=== PATIENT | female | born 1945 | race Caucasian/White ===

== ENCOUNTER 2017-04-15 11:11 | Inpatient (IN) | payer MEDICARE ==
[~2017-04-15] VITALS: Ht 154.9 cm; Wt 93.0 kg
[~2017-04-15 11:11] MED LIST: ASA325 PO; ASPIRIN325 MG PO; ATORVASTATIN CA20 MG PO; AZO CRANBERRY1 EAC1 PO; B12 PO; CALCIUM 600 +1 EAC2 PO; ESIDRIX25 MG PO; GABAPENTIN300 MG PO; GLIMEPIRIDE2 MG PO; LISINOPRIL2.5 MG PO; NRC7.5T PO; OMEPRAZOLE40 MG PO; TYLENOL EXTRA500 MG PO; ULTRAM 50MG50 MG PO; [UNRECOGNIZED DRUG - REMARK] PO; aleve
[2017-04-15] MEDS ORDERED: ALBUTEROL SULF 0.083% NEB SOLN 3 ML NEB NEB STA (11:54)
[2017-04-15] MEDS ORDERED: SODIUM CHLORIDE FLUSH 10 ML SYR INJ PRN ×2 (12:00→15:00)
[2017-04-15 12:08] LABS: BASOPHILS # (AUTO) 0.1 (0.0-0.1); BASOPHILS % 0.7 % (0.0-1.0); EOSINOPHILS % 0.5 % (0.0-6.0); HEMATOCRIT 38.2 % (34.2-44.1); HEMOGLOBIN 13.3 g/dL (12.0-16.0); LYMPHOCYTES # (AUTO) 1.4 (1.0-3.2); LYMPHOCYTES % 19.3 % (18.0-39.1); MEAN CORPUSCULAR HEMOGLOBIN 32.4 pg (28-32); MEAN CORPUSCULAR HGB CONC 34.8 g/dL (31-35); MEAN CORPUSCULAR VOLUME 93.2 fL (81-99); MONOCYTES % 13.1 % (4.4-11.3); NEUTROPHILS # (AUTO) 4.9 (2.1-6.9); NEUTROPHILS % 65.6 % (38.7-80.0); PLATELET COUNT 228 x10e3/uL (140-360); RED CELL DISTRIBUTION WIDTH 13.6 % (11.7-14.4)
--- NOTE | 2017-04-15 12:25 | Diagnostic Imaging Report ---
EXAMINATION: Chest, CHEST SINGLE (PORTABLE) INDICATION: Chest pain COMPARISON: Chest 2 views 03/04/2016 FINDINGS: LINES: None. Heart: Normal cardiac silhouette. Vascular: The pulmonary vasculature is within normal limits. Atherosclerotic calcifications of the aortic arch. Mediastinum: No mediastinal, hilar, or axillary mass or lymphadenopathy. Lungs: No parenchymal mass. No focal consolidation. Low lung volumes are present bilaterally. Pleura: No pleural effusion. No pneumothorax. Bones: No acute osseous abnormality. Degenerative changes of the thoracic spine. Soft tissues: Normal. Impression: No acute radiographic abnormality. Signed by: Dr. Darryl Barfield M.D. on 04/15/2017 12:22 PM
[2017-04-15 12:27] LABS: ALANINE AMINOTRANSFERASE 25 IU/L (0-55); ALBUMIN 3.8 g/dL (3.5-5.0); ALKALINE PHOSPHATASE 155 IU/L (40-150); ANION GAP 12.4 mmol/L (8-16); BLOOD UREA NITROGEN 9 mg/dL (7-26); BUN/CREATININE RATIO 10 (6-25); CALCIUM 10.9 mg/dL (8.4-10.2); CARBON DIOXIDE 26 mmol/L (22-29); CHLORIDE 100 mmol/L (98-107); CREATINE KINASE 97 IU/L (29-168); CREATININE, SERUM 0.89 mg/dL (0.57-1.11); EST GLOMERULAR FILTRATION RATE > 60 ML/MIN (60-); GLUCOSE 114 mg/dL (74-118); POTASSIUM 3.4 mmol/L (3.5-5.1); SODIUM 135 mmol/L (136-145)
[2017-04-15 12:33] LABS: TROPONIN I < 0.001 ng/mL (0-0.300)
[2017-04-15 12:46] LABS: BILIRUBIN,URINE NEGATIVE (NEGATIVE); KETONES,URINE NEGATIVE (NEGATIVE); LEUKOCYTE ESTERASE ,URINE TRACE (NEGATIVE); NITRITE,URINE NEGATIVE (NEGATIVE); PROTEIN,URINE DIPSTICK NEGATIVE (NEGATIVE); URINE UROBILINOGEN 0.2 mg/dL (0.2 - 1)
[2017-04-15 12:47] LABS: CLARITY,URINE CLEAR (CLEAR); COLOR,URINE YELLOW (YELLOW)
[2017-04-15 12:51] LABS: EPITHELIAL CELLS,URINE FEW /LPF; RBC,URINE 0-5 /HPF (0-5); WBC,URINE (MAN) 0-5 /HPF (0-5)
--- NOTE | 2017-04-15 14:01 | Diagnostic Imaging Report ---
EXAM: CT Chest WITH contrast INDICATION: Chest pain COMPARISON: None available TECHNIQUE: Chest was scanned utilizing a multidetector helical scanner from the lung apex through the level of the diaphragm after administration of IV contrast. Coronal and sagittal reconstructions were submitted for interpretation. Protocol: Pulmonary embolus protocol IV CONTRAST: 100 mL of Isovue 370 COMPLICATIONS: None RADIATION DOSE: Total exam DLP: 508.7 mGy*cm. CTDIvol has been reviewed. It is below the limits set by the Radiation Protocol Committee (RPC). FINDINGS: LINES/ TUBES: None. Heart: No cardiomegaly. No pericardial effusion. Vessels: No filling defect is present in the main and post bifurcation right and left main pulmonary arteries. Limited evaluation of the lobar and segmental branches due to contrast bolus timing. Atherosclerotic calcifications of the thoracic aorta and coronary arteries. Mediastinum: No mediastinal or hilar mass or lymphadenopathy. Normal thyroid. Lungs: No parenchymal mass. No focal consolidation. Normal parenchyma. Bibasilar atelectasis. Pleura: No pleural effusion. No pneumothorax. Soft tissues: Normal. No axillary mass or lymphadenopathy. Bones: No acute osseous abnormality. Degenerative changes of the thoracic spine. Adrenal glands: No adrenal nodules.. Abdomen: The partially visualized portions of the upper abdomen are unremarkable.. IMPRESSION: 1. No evidence of pulmonary arterial embolism or thrombosis within the main pulmonary artery. Limited distal evaluation. 2. No acute abnormality of the chest. Signed by: Dr. Darryl Barfield M.D. on 04/15/2017 1:58 PM
[2017-04-15 16:30] VITALS: BP 126/72
[2017-04-15 16:58] VITALS: BP 126/72
[2017-04-15] MEDS ORDERED: IOPAMIDOL 370 MG/ML 200 ML INFUS..BTL INJ ONE (18:27)
[2017-04-15] MEDS ORDERED: SODIUM CHLORIDE 0.9% 50ML 50 ML ONE (18:27)
[2017-04-15 19:28] LABS: CREATINE KINASE MB 0.5 ng/mL (0.00-5.00); TROPONIN I 0.01 ng/mL (0-0.300)
[2017-04-15 20:00] VITALS: BP 113/59
[2017-04-15] MEDS: HYDROCODONE/APAP 5MG-325MG TAB PO PRN (21:39)
[2017-04-16 00:16] VITALS: BP 123/55
[2017-04-16] MEDS: ALBUTEROL/IPRATROPIUM 3 ML NEB NEB SCH ×3 (01:15→19:42)
[2017-04-16] MEDS: LEVOFLOXACIN 500MG/D5W 100ML 100 ML IV SCH (01:16)
[2017-04-16] MEDS: HYDROCODONE/APAP 5MG-325MG TAB PO PRN (01:16)
[2017-04-16 04:00] VITALS: BP 122/56
[2017-04-16] MEDS: METHYLPREDNISOLONE SOD SUCC 125 MG/2ML VIAL IV SCH ×3 (05:18→21:17)
[2017-04-16 08:00] VITALS: BP 121/66
[2017-04-16 08:02] LABS: CREATINE KINASE MB 0.7 ng/mL (0.00-5.00); TROPONIN I 0.004 ng/mL (0-0.300)
[2017-04-16] MEDS: GLIMEPIRIDE 2 MG TAB PO SCH (08:17)
[2017-04-16] MEDS: LISINOPRIL 2.5 MG TAB PO SCH (08:17)
[2017-04-16] MEDS: ASPIRIN 325 MG TAB PO SCH ×2 (08:17→16:44)
[2017-04-16] MEDS: PANTOPRAZOLE SOD 40 MG TABEC PO SCH ×2 (08:17→16:44)
[2017-04-16] MEDS: ACETAMINOPHEN 325 MG TAB PO SCH ×2 (08:17→16:44)
[2017-04-16] MEDS: HYDROCHLOROTHIAZIDE 25 MG TAB PO SCH (08:17)
[2017-04-16] MEDS ORDERED: ATORVASTATIN 20 MG TAB PO SCH (09:00)
[2017-04-16] MEDS ORDERED: DIPHENHYDRAMINE HCL 25 MG CAP PO PRN (10:45)
[2017-04-16 11:58] VITALS: BP 108/59
[2017-04-16] MEDS ORDERED: DEXTROSE 50% SYRINGE 50 ML IV PRN (12:30)
[2017-04-16] MEDS: INSULIN REGULAR, HUMAN 100 UNIT/1 ML 3ML VIAL SQ SCH ×3 (12:30→21:00)
[2017-04-16 16:06] VITALS: BP 110/54
[2017-04-16 20:00] VITALS: BP 100/56
[2017-04-16] MEDS: ATORVASTATIN 20 MG TAB PO SCH (21:16)
[2017-04-17] VITALS: BP 104/53
[2017-04-17] MEDS: ALBUTEROL/IPRATROPIUM 3 ML NEB NEB SCH ×4 (00:40→19:50)
[2017-04-17] MEDS: LEVOFLOXACIN 500MG/D5W 100ML 100 ML IV SCH (00:47)
[2017-04-17] MEDS: HYDROCODONE/APAP 5MG-325MG TAB PO PRN (01:42)
[2017-04-17 04:00] VITALS: BP 116/61
[2017-04-17] MEDS: METHYLPREDNISOLONE SOD SUCC 125 MG/2ML VIAL IV SCH ×3 (06:02→21:26)
[2017-04-17 07:46] VITALS: BP 128/69
[2017-04-17] MEDS: PANTOPRAZOLE SOD 40 MG TABEC PO SCH ×2 (08:14→16:51)
[2017-04-17] MEDS: LISINOPRIL 2.5 MG TAB PO SCH (08:14)
[2017-04-17] MEDS: ASPIRIN 325 MG TAB PO SCH ×2 (08:14→16:51)
[2017-04-17] MEDS: HYDROCHLOROTHIAZIDE 25 MG TAB PO SCH (08:14)
[2017-04-17] MEDS: GLIMEPIRIDE 2 MG TAB PO SCH (08:14)
[2017-04-17] MEDS: ACETAMINOPHEN 325 MG TAB PO SCH ×2 (08:14→16:51)
[2017-04-17] MEDS: INSULIN REGULAR, HUMAN 100 UNIT/1 ML 3ML VIAL SQ SCH ×4 (08:15→21:42)
[2017-04-17 11:34] VITALS: BP 120/55
[2017-04-17 15:34] VITALS: BP 113/57
[2017-04-17 20:00] VITALS: BP 105/57
[2017-04-17] MEDS: ATORVASTATIN 20 MG TAB PO SCH (21:26)
[2017-04-18] VITALS: BP 113/56
[2017-04-18] MEDS: LEVOFLOXACIN 500MG/D5W 100ML 100 ML IV SCH (00:17)
[2017-04-18] MEDS: ALBUTEROL/IPRATROPIUM 3 ML NEB NEB SCH ×4 (02:24→19:45)
[2017-04-18 04:00] VITALS: BP 128/64
[2017-04-18] MEDS: METHYLPREDNISOLONE SOD SUCC 125 MG/2ML VIAL IV SCH ×3 (05:31→21:32)
[2017-04-18 06:45] LABS: HEMATOCRIT 36.4 % (34.2-44.1); HEMOGLOBIN 12.6 g/dL (12.0-16.0); MEAN CORPUSCULAR HEMOGLOBIN 32.8 pg (28-32); MEAN CORPUSCULAR HGB CONC 34.6 g/dL (31-35); MEAN CORPUSCULAR VOLUME 94.8 fL (81-99); PLATELET COUNT 260 x10e3/uL (140-360); RED BLOOD COUNT 3.84 x10e6/uL (3.6-5.1); RED CELL DISTRIBUTION WIDTH 13.6 % (11.7-14.4)
[2017-04-18 07:09] LABS: ANION GAP 17.5 mmol/L (8-16); CALCIUM 10.9 mg/dL (8.4-10.2); CREATININE, SERUM 1.03 mg/dL (0.57-1.11); POTASSIUM 3.5 mmol/L (3.5-5.1)
[2017-04-18 08:16] VITALS: BP 115/60
[2017-04-18 08:52] LABS: LYMPHOCYTES % (MANUAL) 2 % (19-48); NEUTROPHILS % (MANUAL) 98 % (40-74)
[2017-04-18 08:53] LABS: ANISOCYTOSIS SLIGHT; PLATELET ESTIMATE ADEQUATE; PLATELET MORPHOLOGY COMMENT NORMAL; POIKILOCYTOSIS SLIGHT; RBC MORPHOLOGY COMMENT NORMAL; TOXIC GRANULATION SLIGHT
[2017-04-18] MEDS: INSULIN REGULAR, HUMAN 100 UNIT/1 ML 3ML VIAL SQ SCH ×4 (09:15→21:30)
[2017-04-18] MEDS: HYDROCHLOROTHIAZIDE 25 MG TAB PO SCH (09:47)
[2017-04-18] MEDS: GLIMEPIRIDE 2 MG TAB PO SCH (09:47)
[2017-04-18] MEDS: ASPIRIN 325 MG TAB PO SCH ×2 (09:47→17:15)
[2017-04-18] MEDS: ACETAMINOPHEN 325 MG TAB PO SCH ×2 (09:47→17:15)
[2017-04-18] MEDS: PANTOPRAZOLE SOD 40 MG TABEC PO SCH ×2 (09:47→17:15)
[2017-04-18] MEDS: LISINOPRIL 2.5 MG TAB PO SCH (09:47)
[2017-04-18 12:20] VITALS: BP 119/67
[2017-04-18 17:20] VITALS: BP 129/64
[2017-04-18 20:00] VITALS: BP 112/59
[2017-04-18] MEDS: ATORVASTATIN 20 MG TAB PO SCH (21:32)
[2017-04-19] VITALS: BP 102/55
[2017-04-19] MEDS: LEVOFLOXACIN 500MG/D5W 100ML 100 ML IV SCH (00:27)
[2017-04-19] MEDS: ALBUTEROL/IPRATROPIUM 3 ML NEB NEB SCH ×2 (01:00→08:00)
[2017-04-19 04:00] VITALS: BP 125/79
[2017-04-19] MEDS: METHYLPREDNISOLONE SOD SUCC 125 MG/2ML VIAL IV SCH (05:04)
[2017-04-19 07:27] VITALS: BP 131/64
[2017-04-19] MEDS: HYDROCHLOROTHIAZIDE 25 MG TAB PO SCH (08:00)
[2017-04-19] MEDS: INSULIN REGULAR, HUMAN 100 UNIT/1 ML 3ML VIAL SQ SCH (08:00)
[2017-04-19] MEDS: ASPIRIN 325 MG TAB PO SCH (08:00)
[2017-04-19] MEDS: GLIMEPIRIDE 2 MG TAB PO SCH (08:00)
[2017-04-19] MEDS: LISINOPRIL 2.5 MG TAB PO SCH (08:01)
[2017-04-19] MEDS: PANTOPRAZOLE SOD 40 MG TABEC PO SCH (08:01)
[2017-04-19] MEDS: ACETAMINOPHEN 325 MG TAB PO SCH (08:01)
[2017-04-19] MEDS ORDERED: LEVAQUIN500 MG PO (09:45)
[2017-04-19] MEDS ORDERED: PREDNISONE20 MG PO (09:46)
== END 2017-04-19 10:12 | disposition home or self-care (01) | DRG 192 ==
LOC: ER 11:11 → ERHOLD 15:00 → IMCU 15:30 → OBSVTOIN 04-19 10:08
PROVIDERS: ADMIT Internal Medicine; ATTEND Internal Medicine
DX: J44.0 Chronic obstructive pulmonary disease with (acute) lower respiratory infection (principal); E11.9 Type 2 diabetes mellitus without complications; I10 Essential (primary) hypertension; Z79.4 Long term (current) use of insulin; J44.1 Chronic obstructive pulmonary disease with (acute) exacerbation; J20.9 Acute bronchitis, unspecified; E78.5 Hyperlipidemia, unspecified
CPT/HCPCS: 36415; 71010; 71260; 80048; 80053; 81001; 82550; 82553; 82948; 83880; 84484; 85007; 85025; 85027; 85379; 87040; 87086; 87400; 93005; 93306; 94640; 96367; 96374; 96376; 99284; G0378; J1956; J2930; Q9967

== ENCOUNTER 2018-10-08 18:55 | Inpatient (IN) | payer MEDICARE ==
[~2018-10-08] VITALS: Ht 152.4 cm; Wt 91.3 kg
[~2018-10-08 18:55] MED LIST changes: +LEVAQUIN500 MG PO; +PREDNISONE20 MG PO
--- OUTSIDE RECORDS SUMMARY | 2018-10-08 19:00 | XMS REPORT | Clinical Summary ---
Author Author Alonzo Religious Organization [place] [employer] Address Unknown Phone Unavailable Care Team Providers Care Sanitizer Name Role Phone Ba Collier MD PCP Allergies Comments Active Allergy Reactions Severity Noted Date Penicillins 05/19/2018 Sulfa (Sulfonamide 05/19/2018 Antibiotics) Medications End Date Status Medication Sig Dispensed Refills Start Date Active omeprazole (PriLOSEC) 20 Take 40 mg by 0 MG capsule mouth 2 (two) times a day. Active atorvastatin (LIPITOR) 20 Take 20 mg by 0 MG tablet mouth daily. Default OP ins Active hydroCHLOROthiazide Take 25 mg by 0 (HYDRODIURIL) 25 MG mouth daily. tablet Active lisinopril Take 2.5 mg 0 (PRINIVIL,ZESTRIL) 2.5 mg by mouth tablet daily. Active traMADol (ULTRAM) 50 mg Take 50 mg by 0 tablet mouth every 6 (six) hours as needed for moderate pain. Active tiZANidine (ZANAFLEX) 2 Take 2 mg by 0 MG tablet mouth every 8 (eight) hours as needed for muscle spasms. Active folic acid (FOLVITE) 1 MG Take 1 mg by 0 tablet mouth daily. Active methotrexate 2.5 MG Take 2.5 mg 0 tablet by mouth every 12 (twelve) hours for 3 (three) doses only each week. 8 tablets on Monday per patient Active alendronate (FOSAMAX) 70 Take 70 mg by 0 MG tablet mouth every 7 days. Take in the morning with a full glass of water on an empty stomach, do NOT take anything else by mouth or lie down for the next 30 min. Active furosemide (LASIX) 20 mg Take 20 mg by 0 tablet mouth daily. Active rivaroxaban (XARELTO) 20 Take 20 mg by 0 mg tablet mouth daily. Active ondansetron (ZOFRAN) 4 MG Take 4 mg by 0 tablet mouth every 8 (eight) hours as needed for nausea or vomiting. Active cholecalciferol, vitamin Take 1,000 0 D3, (VITAMIN D3) 1,000 Units by unit tablet mouth daily. Active acetaminophen (TYLENOL) Take 500 mg 0 500 MG tablet by mouth every 6 (six) hours as needed for mild pain or headaches. 06/24/2018 gabapentin (NEURONTIN) Take 1 60 capsule 0 300 mg capsule capsule (300 9 mg total) by mouth 2 (two) times a day for 30 days. 05/30/2018 acetaminophen-codeine Take 1 tablet 20 tablet 0 (TYLENOL WITH CODEINE #3) by mouth 9 300-30 mg per tablet every 6 (six) hours as needed for moderate pain for up to 5 days. 06/24/2018 bacitracin ointment tube Apply 14 g 0 topically 2 9 (two) times a day for 30 days. Active Problems Problem Noted Date Compressed spine fracture 05/21/2018 Fall 05/20/2018 Hypertension Disease of thyroid gland Diabetes mellitus Encounters Care Team Description Date Type Specialty [facility], MD Dg Jimenez, MD Jerri Davidson, MD Graeme Qureshi, Tyler Pritchard, DO Fall, initial encounter (Primary Dx); Compression fracture of body of thoracic vertebra (HCC); Contusion of face, initial encounter 05/19/2018 [facility] General Surgery - Encounter 05/25/2018 05/19/2018 Travel after 10/07/2017 Social History Date Tobacco Use Types Packs/Day Years Used Never Smoker Smokeless Tobacco: Never Used Alcohol Use Drinks/Week oz/Week Comments No Alcohol Habits Answer Date Recorded How often do you have a drink containing alcohol? Never 05/19/2018 How many drinks containing alcohol do you have on Not asked a typical day when you are drinking? How often do you have six or more drinks on one Not asked occasion? Sex Assigned at Date Recorded Not on file Industry Job Start Date Occupation Not on file Not on file Not on file Travel End Travel History Travel Start No recent travel history available. Last Filed Vital Signs Time Taken Vital Sign Reading 05/25/2018 4:01 PM [employer] Blood Pressure 111/57 05/25/2018 4:01 PM [employer] Pulse 79 05/25/2018 4:01 PM [employer] Temperature 36.2 C (97.2 F) 05/25/2018 4:01 PM [employer] Respiratory Rate 18 05/25/2018 4:01 PM [employer] Oxygen Saturation 96% - Inhaled Oxygen - Concentration 05/19/2018 7:09 PM [employer] Weight 96.6 kg (213 lb) 05/19/2018 7:09 PM [employer] Height 152.4 cm (5') 05/19/2018 7:09 PM [employer] Body Mass Index 41.6 Plan of Treatment Health Maintenance Due Date Last Done Comments DIABETIC RETINAL EYE EXAM 1945 DIABETIC FOOT EXAM 12/03/1957 URINE MICROALBUMIN 12/03/1957 BREAST CANCER SCREENING 12/03/1997 COLON CANCER SCREENING 12/03/1997 SHINGLES VACCINES (#1) 12/03/1997 65+ PNEUMOCOCCAL VACCINE 12/03/2012 (1 of 2 - PCV13) PNEUMOCOCCAL 12/03/2012 POLYSACCHARIDE VACCINE AGE 65 AND OVER INFLUENZA VACCINE 12/06/2018 Procedures Comments Procedure Name Priority Date/Time Associated Diagnosis POC GLUCOSE Routine 05/25/2018 3:57 PM [employer] POC GLUCOSE Routine 05/25/2018 11:39 AM [employer] POC GLUCOSE Routine 05/25/2018 6:11 AM [employer] POC GLUCOSE Routine 05/24/2018 8:17 PM [employer] POC GLUCOSE Routine 05/24/2018 4:26 PM [employer] POC GLUCOSE Routine 05/24/2018 11:17 AM [employer] COMM[employer]ICATION[employer] POC GLUCOSE Routine 05/24/2018 6:14 AM [employer] COMM[employer] POC GLUCOSE Routine 05/23/2018 9:11 PM [employer] POC GLUCOSE Routine 05/23/2018 12:23 PM [employer] POC GLUCOSE Routine 05/23/2018 6:36 AM [employer] HC COMPLETE BLD COUNT Routine 05/23/2018 W/AUTO DIFF 4:54 AM [employer] POC GLUCOSE Routine 05/22/2018 8:20 PM [employer] XR CHEST 1 VW PORTABLE Routine 05/22/2018 4:31 PM [employer] GRAM STAIN Routine 05/22/2018 4:19 PM [employer] URINE CULTURE Routine 05/22/2018 4:19 PM [employer] POC GLUCOSE Routine 05/22/2018 4:08 PM [employer] URINALYSIS SCREEN AND Routine 05/22/2018 MICROSCOPY, WITH REFLEX 3:47 PM [employer] TO CULTURE POC GLUCOSE Routine 05/22/2018 12:05 PM [employer] POC GLUCOSE Routine 05/22/2018 5:36 AM [employer] HC COMPLETE BLD COUNT Routine 05/22/2018 W/AUTO DIFF 5:24 AM [employer] POC GLUCOSE Routine 05/21/2018 8:16 PM [employer] POC GLUCOSE Routine 05/21/2018 4:50 PM [employer] POC GLUCOSE Routine 05/21/2018 11:54 AM [employer] XR FOOT 3+ VW RIGHT Routine 05/21/2018 9:38 AM [employer] XR ANKLE 3+ VW RIGHT Routine 05/21/2018 9:38 AM [employer] ESTIMATED GFR Routine 05/21/2018 7:09 AM [employer] IONIZED CALCIUM Routine 05/21/2018 7:09 AM [employer] BASIC METABOLIC PANEL Routine 05/21/2018 7:09 AM [employer] HC COMPLETE BLD COUNT Routine 05/21/2018 W/AUTO DIFF 7:09 AM [employer] POC GLUCOSE Routine 05/21/2018 6:18 AM [employer] POC GLUCOSE Routine 05/20/2018 8:10 PM [employer] LIPID PANEL STAT 05/20/2018 4:33 PM [employer] HEMOGLOBIN A1C STAT 05/20/2018 4:33 PM [employer] ESTIMATED GFR STAT 05/20/2018 4:33 PM [employer] HC COMPLETE BLD COUNT STAT 05/20/2018 W/AUTO DIFF 4:33 PM [employer] COMPREHENSIVE METABOLIC STAT 05/20/2018 PANEL 4:33 PM [employer] POC GLUCOSE Routine 05/20/2018 4:12 PM [employer] POC GLUCOSE Routine 05/20/2018 12:21 PM [employer] POC GLUCOSE Routine 05/20/2018 7:42 AM [employer] MRI LUMBAR SPINE WO STAT 05/20/2018 CONTRAST 4:38 AM [employer] XR TIBIA FIBULA 2 VW LEFT STAT 05/20/2018 12:22 [address] [address] LUMBAR SPINE WO STAT 05/19/2018 CONTRAST 10:52 [address] [employer] [employer] [address] CERVICAL SPINE WO STAT 05/19/2018 CONTRAST 10:52 PM [employer] [address] HEAD WO CONTRAST STAT 05/19/2018 10:51 PM [employer] XR KNEE 4+ VW LEFT STAT 05/19/2018 8:10 PM [employer] after 10/07/2017 Results * POC glucose (05/25/2018 3:57 PM [employer] COMM[employer]ICATION[employer]) Only the most recent of 22 results within the time period is included. POC glucose 169 (H) 65 - 100 mg/dL [place] Comment: JOHN CAMARA Meter ID: [id number] [facility] Burner Technician: [facility] Specimen Performing Organization Address City/State/Zipcode Phone Number [facility] DEPARTMENT OF [address] [place] [address] PATHOLOGY AND GENOMIC MEDICINE [place] JOHN CAMARA [address] [place] [place] [id number] [place] [address] * CBC with platelet and differential (05/23/2018 4:54 AM [employer] COMM[employer]ICATION[employer]) Only the most recent of 4 results within the time period is included. WBC 9.2 4.2 - 11.0 k/uL [facility] RBC 3.40 (L) 4.04 - 5.86 m/uL [facility] HGB 10.9 (L) 11.5 - 15.3 g/dL [facility] HCT 33.6 (L) 34.0 - 45.0 % [facility] MCV 98.8 (H) 80.0 - 98.0 fL [facility] MCH 32.1 27.0 - 34.0 pg [facility] MCHC 32.4 31.5 - 36.5 g/dL [facility] RDW - SD 50.4 37.0 - 51.0 fL [facility] MPV 9.0 7.4 - 10.4 fL [facility] Platelet count 226 150 - 400 k/uL [facility] Nucleated RBC 0.00 /100 WBC [facility] Neutrophils 75.2 (H) 36.0 - 66.0 % [facility] Lymphocytes 16.2 (L) 24.0 - 44.0 % [facility] Monocytes 7.3 (H) 0.0 - 6.0 % [facility] Eosinophils 0.3 0.0 - 6.0 % [facility] Basophils 0.2 0.0 - 1.2 % [facility] Immature 0.8 0.0 - 1.0 % [place] granulocytes [facility] Specimen Blood Performing Organization Address City/State/Zipcode Phone Number [facility] DEPARTMENT OF [facility] [place] [address] PATHOLOGY AND GENOMIC MEDICINE [facility] [address] [place], [place] [id number] [place] [address] * XR Chest 1 Vw Portable (05/22/2018 4:31 PM [employer]) Specimen Narrative Performed At EXAMINATION:XR CHEST 1 VW PORTABLE [facility] CLINICAL HISTORY:fever COMPARISON:None IMPRESSION: Mild patchy bibasilar atelectasis Moderate cardiomegaly. Atherosclerosis arch aorta No infiltrate congestion or effusion No pneumothorax. Visualized skeleton intact Single view chest. [id number] Procedure Note Interface, Radiology Results Incoming - 05/22/2018 4:44 PM [employer]ICATIONS EXAMINATION: XR CHEST 1 VW PORTABLE CLINICAL HISTORY: fever COMPARISON: None IMPRESSION: Mild patchy bibasilar atelectasis Moderate cardiomegaly. Atherosclerosis arch aorta No infiltrate congestion or effusion No pneumothorax. Visualized skeleton intact Single view chest. [id number] Performing Organization Address City/[facility]/Zipcode Phone Number [facility] [address] [place] [address] * Gram stain (05/22/2018 4:19 PM SUPER[employer]OR [employer] COMMUNICATIONS) Gram stain Rare WBC's [place] result Few Gram positive rods [facility] Comment: HOSPITAL Specimen Information Specimen Source: Urine Specimen Site: Clean catch Specimen Urine Performing Organization Address [facility] Phone Number [facility] DEPARTMENT OF [address] [place] [address] PATHOLOGY [place] [address] HOSPITAL * Urine culture (05/22/2018 4:19 PM [employer]PER[employer]OR [employer] COMM[employer]ICATIONS) Urine culture Streptococcus group B [place] isolate 10-3 cfu/ml [facility] () [facility] Comment: Specimen Information Specimen Source: Urine Specimen Site: Clean catch Specimen Urine Performing Organization Address [facility] Phone Number [facility] DEPARTMENT OF [address] [place] [address] PATHOLOGY AND GENOMIC MEDICINE [address] * Urinalysis screen and microscopy, with reflex to culture (05/22/2018 3:47 PM [employer] COMM[employer]ICATION[employer]) Specimen site Clean catch [facility] Color, UA Straw [facility] Appearance, UA Clear [facility] Specific 1.010 1.001 - 1.035 [place] gravity, UA [facility] pH, UA 5.0 5.0 - 8.5 [facility] Protein, UA Negative Negative [facility] Glucose, UA Negative Negative [facility] Ketones, UA Negative Negative [facility] Bilirubin, UA Negative Negative [facility] Blood, UA Negative Negative [facility] Nitrite, UA Negative Negative [facility] Urobilinogen, Negative <2.0 [facility] Leukocyte Trace (A) Negative [place] esterase, UA [facility] WBC, UA 3 0 - 5 /HPF [facility] RBC, UA 3 0 - 5 /HPF [facility] Bacteria, UA None seen None seen [facility] Yeast, UA None seen [facility] Yeast with None seen [place] pseudohyphae, [facility] Specimen Urine Performing Organization Address City/State/Zipcode Phone Number [facility] DEPARTMENT OF [facility] [place] [address] PATHOLOGY AND GENOMIC MEDICINE [place] [address] [place], [place] [phone] [place] [address] * XR Foot 3+ Vw Right (05/21/2018 9:38 AM [employer]ICATIONS) Specimen Narrative Performed At EXAMINATION:XR FOOT 3VW RIGHT [facility] INDICATION:Pain COMPARISON:None IMPRESSION: 1.No acute fracture or dislocation. Bony demineralization. 2.Moderate degenerative changes of the first metatarsophalangeal joint with adjacent soft tissue prominence. 3.Milder degenerative changes of the talonavicular, naviculocuneiform and tarsometatarsal joints. Vascular calcifications. [id number] Procedure Note Interface, Radiology Results Incoming - 05/21/2018 9:59 AM [employer]OR [employer] COMM[employer]ICATIONS EXAMINATION: XR FOOT 3 VW RIGHT INDICATION: Pain COMPARISON:None IMPRESSION: 1. No acute fracture or dislocation. Bony demineralization. 2. Moderate degenerative changes of the first metatarsophalangeal joint with adjacent soft tissue prominence. 3. Milder degenerative changes of the talonavicular, naviculocuneiform and tarsometatarsal joints. Vascular calcifications. [id number] Performing Organization Address City/State/Zipcode Phone Number [facility] [address] [place] [address] * XR Ankle 3+ Vw Right (05/21/2018 9:38 AM [employer]OR [employer] COMM[employer]ICATIONS) Specimen Narrative Performed At EXAM: HM [facility] XR ANKLE 3VW RIGHT INDICATION: Pain rt Fall COMPARISON: None. IMPRESSION: Mild soft tissue swelling overlying the lateral malleolus. No definite acute fracture or dislocation. Minimal arthrosis tibiotalar, talonavicular, and tarsotarsal joints. Small enthesophyte posterior and moderately sized enthesophyte inferior calcaneus. Partially visualized moderate arthrosis right hallux metatarsophalangeal joint. Bipartite medial sesamoid common anatomic variant. Calcified atherosclerotic plaque posterior tibial artery. [facility]-[id number] Procedure Note Interface, Radiology Results Incoming - 05/21/2018 9:46 AM [employer]OR [employer] COMM[employer]ICATIONS EXAM: XR ANKLE 3 VW RIGHT INDICATION: Pain rt Fall COMPARISON: None. IMPRESSION: Mild soft tissue swelling overlying the lateral malleolus. No definite acute fracture or dislocation. Minimal arthrosis tibiotalar, talonavicular, and tarsotarsal joints. Small enthesophyte posterior and moderately sized enthesophyte inferior calcaneus. Partially visualized moderate arthrosis right hallux metatarsophalangeal joint. Bipartite medial sesamoid common anatomic variant. Calcified atherosclerotic plaque posterior tibial artery. [facility]-[id number] Performing Organization Address City/[facility]/Zipcode Phone Number [facility] [address] [place] [address] * Estimated GFR (05/21/2018 7:09 AM [employer]OR [employer] COMM[employer]ICATIONS) Only the most recent of 2 results within the time period is included. Pathologist [facility] Estimated GFR 65 mL/min/1.73 m2 [place] Comment: JOHN CAMARA [facility] G1 >=90 Normal or high G2 60-89Mildly decreased P0u81-85 Mildly to moderately decreased Z1x50-60 Moderately to severely decreased G4 15-29Severely decreased G5 <15Kidney failure The eGFR was calculated using the Chronic Kidney Disease Epidemiology Collaboration (CKD-EPI) equation. Interpretation is based on recommendations of the National Kidney Foundation-Kidney Disease Outcomes Quality Initiative (NKF-KDOQI) published in 2014. Specimen Plasma specimen Performing Organization Address City/State/Zipcode Phone Number [facility] DEPARTMENT [address] [place] [address] PATHOLOGY AND GENOMIC MEDICINE [facility] [address] [place], [place] [phone] [place] [address] * Ionized calcium (05/21/2018 7:09 AM SUPER[employer]OR [employer] COMMUNICATIONS) Pathologist [facility] pH 7.43 [facility] Ionized calcium 1.18 1.11 - 1.32 mmol/L [facility] Specimen Plasma specimen Performing Organization Address City/State/Zipcode Phone Number [facility] DEPARTMENT OF [address] [facility] [place]. [place] [id number] PATHOLOGY AND GENOMIC MEDICINE [place] [id number] [facility] [place]. [address] * Basic metabolic panel (05/21/2018 7:09 AM SUPER[employer]OR [employer] COMMUNICATIONS) Sodium 139 135 - 150 mEq/L [facility] Potassium 3.7 3.5 - 5.0 mEq/L [facility] Chloride 101 98 - 112 mEq/L [facility] CO2 27 24 - 31 mmol/L [facility] Anion gap 11@ANIO 7 - 15 mEq/L [facility] BUN 17 7 - 18 mg/dL [facility] Creatinine 0.90 0.50 - 0.90 mg/dL [facility] Glucose 121 (H) 65 - 100 mg/dL [facility] Calcium 9.0 8.8 - 10.2 mg/dL [facility] Specimen Plasma specimen Performing Organization Address City/[facility] Phone Number [place] [address] [facility] [place] [address] PATHOLOGY AND GENOMIC MEDICINE [place] [id number] [facility] [address] * Hemoglobin A1c (05/20/2018 4:33 PM SUPER[employer]OR [employer] COMM[employer]ICATIONS) Hemoglobin A1C 6.1 (H) 4.0 - 6.0 % [place] Comment: JOHN CAMARA [facility] Less than 6% - Goal of therapy for Type II Diabetes Less than 7%-Goal of therapy for Type I Diabetes Less than 8%-Accepta ble control for Type I or Type II Diabetes Greater than 8%-Unacceptabl e control; action indicated. (ADA94) Specimen Performing Organization Address City/[facility]/Zipcode Phone Number [facility] DEPARTMENT OF [address] [place] [address] PATHOLOGY AND GENOMIC MEDICINE [facility] JO TERRYNo [address] * Lipid panel (05/20/2018 4:33 PM SUPER[employer]OR [employer] COMMUNICATIONS) Cholesterol 136 0 - 199 mg/dL [facility] Triglycerides 130 0 - 149 mg/dL [facility] HDL cholesterol 47 40 - 9,999 mg/dL [facility] LDL cholesterol 86Comment: Result obtained by 0 - 99 mg/dL [place] direct LDL measurement [facility] Lipid panel See below [place] interpretation Comment: [facility] Total Cholesterol [facility] (mg/dL) [facility] LDL Cholesterol (mg/dL) <200 Desirable <100 Optimal 200-239Borderline -[id number] or above optimal >=240High 130-159Borderline- high 160-189High >=190Very high HDL Cholesterol (mg/dL) Triglycerides (mg/dL) <40Low <150 Normal >=60 High 150-199Borderline- high 200-499High >=500Very high Risk Catergories that modify LDL goals. Risk Catergories LDL goal (mg/dL) CHD and CHD risk equivalent <100 (10-year risk >20%) Multiple (2+) risk factors <130 (10-year risk=<20%) 0-1 risk factors <160 (<10-year risk) Defining levels of lipids in metabolic syndrome Triglycerides >=150 mg/dL HDL Cholesterol Men <40 mg/dL Women <50 mg/dL Non-HDL cholesterol is a second target for therapy in persons with high triglycerides (>=200 mg/dL) Specimen Plasma specimen Performing Organization Address City/State/Zipcode Phone Number [facility] [address] [place] [address] PATHOLOGY AND GENOMIC MEDICINE [facility] JO TERRYNo [address] * Comprehensive metabolic panel (05/20/2018 4:33 PM SUPERVISOR OF COMMUNICATIONS) Sodium 140 135 - 150 mEq/L [facility] Potassium 4.0 3.5 - 5.0 mEq/L [facility] Chloride 104 98 - 112 mEq/L [facility] CO2 25 24 - 31 mmol/L [facility] Anion gap 11@ANIO 7 - 15 mEq/L [facility] BUN 12 7 - 18 mg/dL [facility] Creatinine 0.80 0.50 - 0.90 mg/dL [facility] Glucose 181 (H) 65 - 100 mg/dL [facility] Calcium 9.2 8.8 - 10.2 mg/dL [facility] Protein 6.2 (L) 6.3 - 8.3 g/dL [facility] Albumin 3.1 (L) 3.5 - 5.0 g/dL [facility] A/G ratio 1.0 0.7 - 3.8 [facility] Alkaline 103 0 - 104 U/L [place] phosphatase [facility] AST 19 10 - 35 U/L [facility] ALT 15 5 - 50 U/L [facility] Total bilirubin 0.5 0.2 - 1.2 mg/dL [facility] Specimen Plasma specimen Performing Organization Address City/State/Zipcode Phone Number [facility] DEPARTMENT OF [address] [place] [address] PATHOLOGY AND GENOMIC MEDICINE [place] [id number] * MRI Lumbar Spine Wo Contrast (05/20/2018 4:38 AM SUPERVISOR OF COMMUNICATIONS) Specimen Narrative Performed At [facility] EXAMINATION: MRI LUMBAR SPINE WO CONTRAST CLINICAL HISTORY: trauma Technique: Routine unenhanced MRI of the lumbar spine. Comparison: CT May 19, 2018. Findings: For the purposes of this dictation, the last well-defined interspace is called L5-S1. There is grade 1 anterolisthesis of L4 on L5. There is moderate compression fracture of L5 vertebral body. There mild narrowing edema in the anterior superior right aspect of the vertebral body. There is chronic mild L3 vertebral body compression fracture with inferior endplate Schmorl's node. Mild chronic L1 vertebral body compression fracture with inferior endplate Schmorl's node. Mild to moderate T12 anterior inferior endplate compression fracture with marrow edema along the anterior inferior right aspect suggestive of component of acuity. There is thinning of the anterior longitudinal ligament at T11-T12 and associated hyperintense disc anteriorly at T11-T12. Injury to the anterior longitudinal ligament and anterior T11-T12 disc is not entirely excluded. L1-2: No significant spinal canal stenosis or neural foraminal narrowing. L2-3: No significant spinal canal stenosis or neural foraminal narrowing. L3-4: Disc bulge with superimposed left foraminal extraforaminal disc protrusion. No central spinal stenosis. Mild left neural foraminal narrowing. L4-5: Disc uncovering. Bilateral facet arthropathy. Possible small synovial cyst in the dorsal canal. No central spinal stenosis. Mild right neural foraminal narrowing. L5-S1: Bilateral facet arthropathy. Central annular fissure. Circumferential epidural lipomatosis. No significant thecal sac stenosis. Mild to moderate right neural foraminal narrowing. Normal appearance and position of the terminal spinal cord. Impression: Mild to moderate T12 anterior inferior compression fracture with marrow edema in the anterior inferior right aspect of the vertebral body suggestive of component of acuity. There is thinning of the anterior longitudinal ligament at T11-T12 and intervertebral disc anteriorly, injury to the anterior longitudinal ligament and anterior intervertebral disc is not entirely excluded. The moderate L5 vertebral body compression fracture demonstrates mild marrow edema in the anterior superior right aspect of the vertebral body which may be subacute, clinically correlate. [id number] Procedure Note [facility], Radiology Results Incoming - 05/20/2018 8:03 AM SUPERVISOR OF COMMUNICATIONS EXAMINATION: MRI LUMBAR SPINE WO CONTRAST CLINICAL HISTORY: trauma Technique: Routine unenhanced MRI of the lumbar spine. Comparison: CT May 19, 2018. Findings: For the purposes of this dictation, the last well-defined interspace is called L5-S1. There is grade 1 anterolisthesis of L4 on L5. There is moderate compression fracture of L5 vertebral body. There mild narrowing edema in the anterior superior right aspect of the vertebral body. There is chronic mild L3 vertebral body compression fracture with inferior endplate Schmorl's node. Mild chronic L1 vertebral body compression fracture with inferior endplate Schmorl's node. Mild to moderate T12 anterior inferior endplate compression fracture with marrow edema along the anterior inferior right aspect suggestive of component of acuity. There is thinning of the anterior longitudinal ligament at T11-T12 and associated hyperintense disc anteriorly at T11-T12. Injury to the anterior longitudinal ligament and anterior T11-T12 disc is not entirely excluded. L1-2: No significant spinal canal stenosis or neural foraminal narrowing. L2-3: No significant spinal canal stenosis or neural foraminal narrowing. L3-4: Disc bulge with superimposed left foraminal extraforaminal disc protrusion. No central spinal stenosis. Mild left neural foraminal narrowing. L4-5: Disc uncovering. Bilateral facet arthropathy. Possible small synovial cyst in the dorsal canal. No central spinal stenosis. Mild right neural foraminal narrowing. L5-S1: Bilateral facet arthropathy. Central annular fissure. Circumferential epidural lipomatosis. No significant thecal sac stenosis. Mild to moderate right neural foraminal narrowing. Normal appearance and position of the terminal spinal cord. Impression: Mild to moderate T12 anterior inferior compression fracture with marrow edema in the anterior inferior right aspect of the vertebral body suggestive of component of acuity. There is thinning of the anterior longitudinal ligament at T11-T12 and intervertebral disc anteriorly, injury to the anterior longitudinal ligament and anterior intervertebral disc is not entirely excluded. The moderate L5 vertebral body compression fracture demonstrates mild marrow edema in the anterior superior right aspect of the vertebral body which may be subacute, clinically correlate. [facility]-[id number] Performing Organization Address City/State/Zipcode Phone Number [facility] [address] [place] [address] * XR Tibia Fibula 2 Vw Left (05/20/2018 12:22 AM SUPERVISOR OF COMMUNICATIONS) Specimen Narrative Performed At EXAMINATION:XR TIBIA FIBULA 2 VW LEFT [facility] CLINICAL HISTORY:pain COMPARISON:05/19/2018 knee x-ray. IMPRESSION: Generalized bone demineralization. Total knee arthroplasty is present. Chronic fracture of the mid fibular diaphysis. No acute fracture or acute subluxation. [facility]-[id number] Procedure Note Interface, Radiology Results Incoming - 05/20/2018 3:17 AM SUPERVISOR OF COMMUNICATIONS EXAMINATION: XR TIBIA FIBULA 2 VW LEFT CLINICAL HISTORY: pain COMPARISON: 05/19/2018 knee x-ray. IMPRESSION: Generalized bone demineralization. Total knee arthroplasty is present. Chronic fracture of the mid fibular diaphysis. No acute fracture or acute subluxation. [facility]-[id number] Performing Organization Address City/State/Zipcode Phone Number [facility] [address] [place] [address] * CT Lumbar Spine Wo Contrast (05/19/2018 10:52 PM SUPERVISOR OF COMMUNICATIONS) Specimen Narrative Performed At EXAMINATION: CT LUMBAR SPINE WO CONTRAST [facility] CLINICAL HISTORY: pain COMPARISON:None TECHNIQUE: Axial noncontrast enhanced images of lumbar spine was performed with coronal sagittal reconstruction algorithms. CT imaging was performed with iterative reconstruction technique and/or automated exposure control to reduce radiation dose. FINDINGS: There are multiple compression fractures identified. The bones are severely and diffusely osteopenic. There is an age-indeterminate inferior endplate fracture with 30% loss of anterior vertebral body height at T12. There is a focal depression along the inferior endplate of L1 with a large central concavity. There is no significant loss of vertebral body height. There is a focal inferior endplate fracture with central concavity at L3. There is a compression fracture of L5 with 40% loss of vertebral body height. These fractures are age indeterminant by CT imaging. At least one of the fractures appear to be acute along the inferior T12 endplate. MRI is more sensitive for evaluation for acuity of the fracture. There is some focal sclerosis in the S1 vertebral body which could represent prior injury with healing. There is grade 1 anterolisthesis of L4. Axial images through the disc spaces demonstrate the following: L1-L2: No significant posterior disc disease, spinal canal or neural foraminal stenosis. L2-L3: There is mild disc bulge and facet disease without stenosis. L3-L4: There is disc bulge with facet disease a mild narrowing of the lateral recesses and mild left foraminal narrowing. L4-L5: There is vacuum disc changes with disc bulge and facet hypertrophy with moderate narrowing of the canal and lateral recesses. There is mild bilateral foraminal narrowing. L5-S1: There are vacuum disc changes with disc bulge with no significant canal narrowing. The foramina are mildly narrowed. No definite acute fracture identified within the partially imaged sacrum. IMPRESSION: There are multiple fractures of indeterminate age throughout the spine as detailed above. The inferior T12 fracture appears to have some acute fracture lines suggesting more recent injury. MRI can be performed to determine acuity of the other lumbar fractures. [facility]-[id number] Procedure Note Hm Interface, Radiology Results Incoming - 05/19/2018 11:07 PM SUPERVISOR OF COMMUNICATIONS EXAMINATION: CT LUMBAR SPINE WO CONTRAST CLINICAL HISTORY: pain COMPARISON: None TECHNIQUE: Axial noncontrast enhanced images of lumbar spine was performed with coronal sagittal reconstruction algorithms. CT imaging was performed with iterative reconstruction technique and/or automated exposure control to reduce radiation dose. FINDINGS: There are multiple compression fractures identified. The bones are severely and diffusely osteopenic. There is an age-indeterminate inferior endplate fracture with 30% loss of anterior vertebral body height at T12. There is a focal depression along the inferior endplate of L1 with a large central concavity. There is no significant loss of vertebral body height. There is a focal inferior endplate fracture with central concavity at L3. There is a compression fracture of L5 with 40% loss of vertebral body height. These fractures are age indeterminant by CT imaging. At least one of the fractures appear to be acute along the inferior T12 endplate. MRI is more sensitive for evaluation for acuity of the fracture. There is some focal sclerosis in the S1 vertebral body which could represent prior injury with healing. There is grade 1 anterolisthesis of L4. Axial images through the disc spaces demonstrate the following: L1-L2: No significant posterior disc disease, spinal canal or neural foraminal stenosis. L2-L3: There is mild disc bulge and facet disease without stenosis. L3-L4: There is disc bulge with facet disease a mild narrowing of the lateral recesses and mild left foraminal narrowing. L4-L5: There is vacuum disc changes with disc bulge and facet hypertrophy with moderate narrowing of the canal and lateral recesses. There is mild bilateral foraminal narrowing. L5-S1: There are vacuum disc changes with disc bulge with no significant canal narrowing. The foramina are mildly narrowed. No definite acute fracture identified within the partially imaged sacrum. IMPRESSION: There are multiple fractures of indeterminate age throughout the spine as detailed above. The inferior T12 fracture appears to have some acute fracture lines suggesting more recent injury. MRI can be performed to determine acuity of the other lumbar fractures. [facility]-[id number] Performing Organization Address City/State/Zipcode Phone Number [facility] [address] [place] [address] * CT Cervical Spine Wo Contrast (05/19/2018 10:52 PM SUPERVISOR OF COMMUNICATIONS) Specimen Narrative Performed At EXAMINATION: CT CERVICAL SPINE WO CONTRAST [facility] CLINICAL HISTORY: trauma COMPARISON:None TECHNIQUE: Axial noncontrast enhanced images of the cervical spine were obtained with coronal and sagittal reconstructed algorithms. CT imaging was performed with iterative reconstruction technique and/or automated exposure control to reduce radiation dose. FINDINGS: No fracture identified. Craniocervical junction is intact. Alignment is within normal limits. No suspicious osseous lesion. The prevertebral soft tissues are within normal limits. The thyroid gland is enlarged. Surgical clips are noted adjacent to the left thyroid lobe which appears partially resected. Axial images through the disc spaces demonstrate the following: C1-C2: There is narrowing of the atlantoaxial interval with spurring. There is no significant stenosis. C2-C3: No significant posterior disc disease, spinal canal or neural foraminal stenosis. C3-C4: No significant posterior disc disease, spinal canal or neural foraminal stenosis despite prominent anterior osteophytosis. C4-C5: No significant posterior disc disease, spinal canal or neural foraminal stenosis. C5-C6: There is mild right foraminal narrowing. C6-C7: There is mild to moderate left and mild right foraminal narrowing. C7-T1: No significant posterior disc disease, spinal canal or neural foraminal stenosis. IMPRESSION: No significant cervical spine abnormality identified. No evidence of acute fracture. [id number] Procedure Note Interface, Radiology Results Incoming - 05/19/2018 11:04 PM SUPERVISOR OF COMMUNICATIONS EXAMINATION: CT CERVICAL SPINE WO CONTRAST CLINICAL HISTORY: trauma COMPARISON: None TECHNIQUE: Axial noncontrast enhanced images of the cervical spine were obtained with coronal and sagittal reconstructed algorithms. CT imaging was performed with iterative reconstruction technique and/or automated exposure control to reduce radiation dose. FINDINGS: No fracture identified. Craniocervical junction is intact. Alignment is within normal limits. No suspicious osseous lesion. The prevertebral soft tissues are within normal limits. The thyroid gland is enlarged. Surgical clips are noted adjacent to the left thyroid lobe which appears partially resected. Axial images through the disc spaces demonstrate the following: C1-C2: There is narrowing of the atlantoaxial interval with spurring. There is no significant stenosis. C2-C3: No significant posterior disc disease, spinal canal or neural foraminal stenosis. C3-C4: No significant posterior disc disease, spinal canal or neural foraminal stenosis despite prominent anterior osteophytosis. C4-C5: No significant posterior disc disease, spinal canal or neural foraminal stenosis. C5-C6: There is mild right foraminal narrowing. C6-C7: There is mild to moderate left and mild right foraminal narrowing. C7-T1: No significant posterior disc disease, spinal canal or neural foraminal stenosis. IMPRESSION: No significant cervical spine abnormality identified. No evidence of acute fracture. [facility]-[id number] Performing Organization Address City/State/Zipcode Phone Number [facility] [address] [place] [address] * CT Head Wo Contrast (05/19/2018 10:51 PM SUPERVISOR OF COMMUNICATIONS) Specimen Narrative Performed At EXAMINATION: [facility]: trauma COMPARISON:None TECHNIQUE: Noncontrast enhanced images of the brain were obtained from the skull base to the vertex. Both soft tissue and bone reconstruction algorithms were performed.CT imaging was performed with iterative reconstruction technique and/or automated exposure control to reduce radiation dose. FINDINGS: The brain parenchyma has no acute lesion. The baker-white matter differentiation is preserved. No evidence of acute intra or extra-axial hemorrhage, mass, mass effect or acute territorial infarction. There is no acute hydrocephalus. Basal cisterns are patent. There are atherosclerotic calcifications in the carotid siphons and vertebral arteries. Sulci and ventricles are prominent from age-related volume loss. There are lucencies in the white matter with chronic small vessel changes and lacunar insults. No acute soft tissue hematoma or laceration. Paranasal sinuses shows no acute air-fluid levels. Mastoid air cells are clear.No skull fractures or aggressive bony lesions. IMPRESSION: There are involutional changes as detailed above with no acute intracranial abnormality. [facility]-[id number] Procedure Note Interface, Radiology Results Incoming - 05/19/2018 10:57 PM SUPERVISOR OF COMMUNICATIONS EXAMINATION: CT HEAD WO CONTRAST CLINICAL HISTORY: trauma COMPARISON: None TECHNIQUE: Noncontrast enhanced images of the brain were obtained from the skull base to the vertex. Both soft tissue and bone reconstruction algorithms were performed. CT imaging was performed with iterative reconstruction technique and/or automated exposure control to reduce radiation dose. FINDINGS: The brain parenchyma has no acute lesion. The baker-white matter differentiation is preserved. No evidence of acute intra or extra-axial hemorrhage, mass, mass effect or acute territorial infarction. There is no acute hydrocephalus. Basal cisterns are patent. There are atherosclerotic calcifications in the carotid siphons and vertebral arteries. Sulci and ventricles are prominent from age-related volume loss. There are lucencies in the white matter with chronic small vessel changes and lacunar insults. No acute soft tissue hematoma or laceration. Paranasal sinuses shows no acute air-fluid levels. Mastoid air cells are clear. No skull fractures or aggressive bony lesions. IMPRESSION: There are involutional changes as detailed above with no acute intracranial abnormality. [facility]-[id number] Performing Organization Address City/[facility]/Zipcode Phone Number [facility] [address] [place] [address] * XR Knee 4+ Vw Left (05/19/2018 8:10 PM SUPERVISOR OF COMMUNICATIONS) Specimen Narrative Performed At EXAMINATION:XR KNEE 4VW LEFT [facility] CLINICAL HISTORY:pain COMPARISON:None IMPRESSION: Patient is status post left knee arthroplasty. No evidence for hardware failure or loosening. Lucency is seen of the proximal diaphysis of the left fibula, suspicious for an acute nondisplaced fracture. No soft tissue abnormalities. [id number] Procedure Note Hm Interface, Radiology Results Incoming - 05/19/2018 9:45 PM SUPERVISOR OF COMMUNICATIONS EXAMINATION: XR KNEE 4 VW LEFT CLINICAL HISTORY: pain COMPARISON: None IMPRESSION: Patient is status post left knee arthroplasty. No evidence for hardware failure or loosening. Lucency is seen of the proximal diaphysis of the left fibula, suspicious for an acute nondisplaced fracture. No soft tissue abnormalities. [id number] Performing Organization Address City/[facility] Phone Number [facility] [address] [place] [address] after 10/07/2017 Insurance Type Payer Benefit Subscriber ID Effective Phone Address Plan / Dates Group HMO AETNA MEDICARE AETNA xxxxxxxx [id number] MEDICARE resent HMO/PPO [facility] Advance Directives Patient has advance care planning documents on file. For more information, tobi quiroga contact: Alonzo Payton [address] [place] [address]
--- OUTSIDE RECORDS SUMMARY | 2018-10-08 19:01 | XMS REPORT ---
Author Author Kendal Lozoya [facility] eClinicalWorks Address Unknown Phone Unavailable Care Team Providers Care P[place]ble [place] Operator Name Role Phone Kendal Lozoya CP Unavailable Allergies, Adverse Reactions, Alerts Substance Reaction Event Type sulfa hives Drug Allergy penicillin hives Drug Allergy Problems Problem Type Condition Code Onset Dates Condition Status Problem Seronegative rheumatoid arthritis of multiple sites M06.09 Active Problem Inflammatory arthritis M19.90 Active Problem High risk medication use Z79.899 Active Assessment Seronegative rheumatoid arthritis of multiple sites M06.09 Active Medications Medication Code System Code Instructions Start Date End Date Status Dosage Lisinopril ND 38098181236 20 MG Orally Once a day Active 1 tablet Vitamin D (Ergocalciferol) [facility] 65663395885 23993 UNIT Orally once a week Active 1 capsule Hydrochlorothiazide ND 32638123436 25 MG Orally as needed Active 1 tablet in the morning Xarelto ND 62894844632 20 MG Orally Once a day Active 1 tablet with food Omeprazole ND 80743487344 40 MG Orally Once a day Active 1 capsule Atorvastatin Calcium ND 06486893444 20 MG Orally Once a day Active 1 tablet Methotrexate NDC 0 2.5mg Orally Once a week Active 8 tabs altogether Folic Acid ND 58266456857 1 MG Orally Once a day Active 1 tablet Vital Signs Date/Time: September 05, 2017 BMI 40.75 Index Weight 215.7 lbs Height 61 in Temperature 97.0 F Cardiac Monitoring Heart Rate 78 /min Blood Pressure Diastolic 68 mm Hg Blood Pressure Systolic 132 mm Hg Results No Known Results Summary Purpose eClinicalWorks Submission
--- OUTSIDE RECORDS SUMMARY | 2018-10-08 19:01 | XMS REPORT ---
Author Author Ravi Hagen Organization eClinicalWorks Address Unknown Phone Unavailable Care Team Providers Care Boxing Promoter Name Role Phone Ravi Hagen CP Unavailable Allergies No Known Allergies Problems Problem Type Condition Code Onset Dates Condition Status Problem Seronegative rheumatoid arthritis of multiple sites M06.09 Active Problem Inflammatory arthritis M19.90 Active Problem High risk medication use Z79.899 Active Medications No Known Medications Results No Known Results Summary Purpose eClinicalWorks Submission
--- OUTSIDE RECORDS SUMMARY | 2018-10-08 19:01 | XMS REPORT ---
Author Author Ravi Hagen Organization e[employer] Address Unknown Phone Unavailable Care Team Providers Care Coach Wirer Name Role Phone Ravi Hagen CP Unavailable Allergies No Known Allergies Problems Problem Type Condition Code Onset Dates Condition Status Problem Vitamin D deficiency E55.9 Active Problem High risk medication use Z79.899 Active Problem Age-related osteoporosis without current pathological fracture M81.0 Active Problem Seronegative rheumatoid arthritis of multiple sites M06.09 Active Problem Inflammatory arthritis M19.90 Active Medications No Known Medications Results No Known Results Summary Purpose eClinicalWorks Submission
--- OUTSIDE RECORDS SUMMARY | 2018-10-08 19:01 | XMS REPORT ---
Author Author Ravi Hagen Organization eClinicalWorks Address Unknown Phone Unavailable Care Team Providers Care Souvenir And Novelty Maker Name Role Phone Ravi Hagen CP Unavailable Allergies No Known Allergies Problems Problem Type Condition Code Onset Dates Condition Status Problem Vitamin D deficiency E55.9 Active Problem High risk medication use Z79.899 Active Problem Age-related osteoporosis without current pathological fracture M81.0 Active Problem Seronegative rheumatoid arthritis of multiple sites M06.09 Active Problem Inflammatory arthritis M19.90 Active Medications Medication Code System Code Instructions Start Date End Date Status Dosage Enbrel Mini [facility] [id number] 50 MG/ML Subcutaneous once a week Jun 19, 2018 Active 1 ml Results No Known Results Summary Purpose eClinicalWorks Submission
--- OUTSIDE RECORDS SUMMARY | 2018-10-08 19:01 | XMS REPORT ---
Author Author Ravi Hagen Organization eClinicalWorks Address Unknown Phone Unavailable Care Team Providers Care Blueprint Developer Name Role Phone Ravi Hagen CP Unavailable Allergies No Known Allergies Problems Problem Type Condition Code Onset Dates Condition Status Problem Seronegative rheumatoid arthritis of multiple sites M06.09 Active Problem Inflammatory arthritis M19.90 Active Problem High risk medication use Z79.899 Active Medications No Known Medications Results No Known Results Summary Purpose eClinicalWorks Submission
--- OUTSIDE RECORDS SUMMARY | 2018-10-08 19:01 | XMS REPORT ---
Author Author Ravi Hagen Organization e[employer] Address Unknown Phone Unavailable Care Team Providers Care Electric Powerline Examiner Name Role Phone Ravi Hagen CP Unavailable Allergies No Known Allergies Problems Problem Type Condition Code Onset Dates Condition Status Problem Seronegative rheumatoid arthritis of multiple sites M06.09 Active Problem Inflammatory arthritis M19.90 Active Problem High risk medication use Z79.899 Active Medications No Known Medications Results No Known Results Summary Purpose eClinicalWorks Submission
--- OUTSIDE RECORDS SUMMARY | 2018-10-08 19:01 | XMS REPORT ---
Author Author Kendal Lozoya [facility] e[employer] Address Unknown Phone Unavailable Care Team Providers Care Supply Chain Project Manager Name Role Phone Kendal Lozoya Unavailable Allergies, Adverse Reactions, Alerts Substance Reaction Event Type sulfa hives Drug Allergy penicillin hives Drug Allergy Humira headahces, nausea Non Drug Allergy Problems Problem Type Condition Code Onset Dates Condition Status Assessment High risk medication use Z79.899 Active Problem Vitamin D deficiency E55.9 Active Problem High risk medication use Z79.899 Active Problem Age-related osteoporosis without current pathological fracture M81.0 Active Assessment Seronegative rheumatoid arthritis of multiple sites M06.09 Active Problem Seronegative rheumatoid arthritis of multiple sites M06.09 Active Problem Inflammatory arthritis M19.90 Active Medications Medication Code System Code Instructions Start Date End Date Status Dosage Solodyn [facility] 07858925516 80 MG Orally Active as directed Diclofenac Sodium [facility] 89263425978 75 MG Orally Twice a day Active 1 tablet with food or milk Furosemide ND 64870859590 20 MG Orally Once a day Active 1 tablet Folic Acid [facility] 12884338831 1 MG Orally Once a day Active 1 tablet Ondansetron [facility] 05121872560 4 MG Orally every 4 hrs Active 1 tablet on the tongue and allow to dissolve as needed Lisinopril ND 24887492770 20 MG Orally Once a day Active 1 tablet Gabapentin ND 16708251528 300 MG Orally Once a day Active 1 capsule Tizanidine HCl [facility] 43223735708 2 MG Orally twice a day Active 1 tablet as needed Culturelle ND 59839273160 - Orally Active as directed Tramadol HCl [facility] 80093981950 50 MG Orally every 6 hrs Active 1 tablet as needed Xarelto [facility] 80068631612 20 MG Orally Once a day Active 1 tablet with food Fosamax [facility] 47658579187 70 MG Orally once a week Active 1 tablet Enbrel Mini [facility] 60658648948 50 MG/ML Subcutaneous once a week Jun 19, 2018 Active 1 ml Alendronate Sodium [facility] 01377487316 70 MG Orally once a week Active 1 tablet Vitamin D [facility] 25591617716 1000 UNIT Orally Once a day Active 1 tablet Omeprazole [facility] 96301182671 40 MG Orally Once a day Active 1 capsule Methotrexate [facility] 46882347062 2.5 MG Active TAKE 8 TABLETS ALTOGETHER ONCE A WEEK Hydrochlorothiazide [facility] 50734061956 25 MG Orally as needed Active 1 tablet in the morning Methotrexate (Anti-Rheumatic) ND 0 2.5 MG Orally once a week Active 8 tablets Atorvastatin Calcium [facility] 03565294138 20 MG Orally Once a day Active 1 tablet Vital Signs Date/Time: September 17, 2018 BMI 39.45 Index Weight 202 lbs Height 60 in Temperature 99.2 F Cardiac Monitoring Heart Rate 72 /min Blood Pressure Diastolic 60 mm Hg Blood Pressure Systolic 108 mm Hg Results No Known Results Summary Purpose eClinicalWorks Submission
--- OUTSIDE RECORDS SUMMARY | 2018-10-08 19:01 | XMS REPORT ---
Author Author Kendal Lozoya [facility] Address Unknown Phone Unavailable Care Team Providers Care Basketball Commentator Name Role Phone Kendal Lozoya Unavailable Allergies, Adverse Reactions, Alerts Substance Reaction Event Type sulfa hives Drug Allergy penicillin hives Drug Allergy Humira headahces, nausea Non Drug Allergy Problems Problem Type Condition Code Onset Dates Condition Status Assessment Localized osteoporosis with current pathological fracture with routine healing, subsequent encounter M80.80XD Active Problem Vitamin D deficiency E55.9 Active Problem High risk medication use Z79.899 Active Problem Age-related osteoporosis without current pathological fracture M81.0 Active Assessment Seronegative rheumatoid arthritis of multiple sites M06.09 Active Assessment High risk medication use Z79.899 Active Problem Seronegative rheumatoid arthritis of multiple sites M06.09 Active Problem Inflammatory arthritis M19.90 Active Medications Medication Code System Code Instructions Start Date End Date Status Dosage Methotrexate NDC 0 2.5mg Orally Once a week Jan 17, 2018 Inactive 8 tabs altogether Tizanidine HCl ND 27109617311 2 MG Orally twice a day Active 1 tablet as needed Atorvastatin Calcium ND 00278342153 20 MG Orally Once a day Active 1 tablet Ondansetron ND 80623628133 4 MG Orally every 4 hrs Active 1 tablet on the tongue and allow to dissolve as needed Lisinopril ND 35733657644 20 MG Orally Once a day Active 1 tablet Xarelto ND 56587846683 20 MG Orally Once a day Active 1 tablet with food Tramadol HCl ND 42750412847 50 MG Orally every 6 hrs Active 1 tablet as needed Rasuvo [facility] 17794579847 25 MG/0.5ML Subcutaneous once per week Jan 17, 2018 Apr 17, 2018 Active 1 injection Vitamin D (Ergocalciferol) [facility] 98917160321 17242 UNIT Orally once a week Active 1 capsule Omeprazole ND 88534701012 40 MG Orally Once a day Active 1 capsule Fosamax ND 01254863882 70 MG Orally once a week Jan 17, 2018 Apr 17, 2018 Active 1 tablet Folic Acid [facility] 80041620947 1 MG Orally Once a day Active 1 tablet Hydrochlorothiazide [facility] 98630261546 25 MG Orally as needed Active 1 tablet in the morning Enbrel Mini [facility] 61595060799 50 MG/ML Subcutaneous once a week Jan 17, 2018 Apr 17, 2018 Active 1 ml Vital Signs Date/Time: Jan 17, 2018 BMI 38.35 Index Weight 203 lbs Height 61 in Temperature 97.4 F Cardiac Monitoring Heart Rate 76 /min Blood Pressure Diastolic 70 mm Hg Blood Pressure Systolic 110 mm Hg Results Name Result Date Reference Range Unit Abnormality Flag 1055 SEDIMENTATION RATE ----SEDIMENTATION RATE 13 20180117 0-20 MM/HOUR 1000 CBC W/AUTO DIFF ----PLATELET COUNT 274 20180117 130-400 K/UL ----MCV 95.7 20180117 80.0-100.0 fL ----HEMATOCRIT 35.6 59812593 34.0-45.0 % ----BASOPHILS 0.6 74340159 0.0-2.0 % ----MCHC 35.4 67336696 32.0-35.5 G/DL ----EOSINOPHILS 0.2 94704475 0.0-7.0 % ----MCH 33.9 48385732 27.0-34.0 PG ----MONOCYTES 9.5 90666834 4.0-13.0 % ----WBC 8.6 50600122 4.0-11.0 K/UL ----HEMOGLOBIN 12.6 43809267 11.5-15.5 G/DL ----RBC 3.72 86858362 3.80-5.10 M/UL L ----LYMPHOCYTES 25.0 36428709 19.0-48.0 % ----RDW 13.7 89691276 11.0-15.0 % ----NEUTROPHILS 64.7 39525141 40.0-74.0 % 9179 COMPREHENSIVE METABOLIC PANEL ----CALC A/G RATIO 1.6 37859311 1.0-2.6 RATIO ----CALC GLOBULIN 2.6 37615986 1.9-3.7 G/DL ----ALKALINE PHOSPHATASE 129 27617212 40-142 U/L ----BILIRUBIN, TOTAL 0.8 72371486 <=1.2 MG/DL ----CHLORIDE 100 39406521 95-107 MEQ/L ----ALT 22 79682240 5-40 U/L ----POTASSIUM 5.1 09648632 3.5-5.4 MEQ/L ----AST 20 60328918 9-40 U/L ----SODIUM 140 82356796 133-146 MEQ/L ----CALC BUN/CREAT 15 00592305 6-28 RATIO ---- eGFR NON- AMER. 70 33776171 >60 ML/MIN/1.73 ----CALCIUM 11.1 20830282 8.5-10.5 MG/DL H ----CARBON DIOXIDE 29 20180117 19-31 MEQ/L ----ALBUMIN 4.2 85199139 3.5-5.2 G/DL ----PROTEIN, TOTAL 6.8 62461016 6.1-8.3 G/DL ----GLUCOSE 102 75307322 70-99 MG/DL H ----BUN 13 20180117 8-23 MG/DL ----CREATININE 0.84 82596859 0.60-1.30 MG/DL ---- eGFR AMER. 82 44813994 >60 ML/MIN/1.73 5083 HIGH SENSITIVITY CRP ----HIGH SENSITIVITY CRP 0.7 20180117 SEE BELOW MG/L Summary Purpose eClinicalWorks Submission
--- OUTSIDE RECORDS SUMMARY | 2018-10-08 19:01 | XMS REPORT ---
Author Author Kendal Lozoya [facility] eClinicalWorks Address Unknown Phone Unavailable Care Team Providers Care Social Contact Worker Name Role Phone Kendal Lozoya CP Unavailable [...] Assessment High risk medication use Z79.899 Active Medications Medication Code System Code Instructions Start Date End Date Status Dosage Atorvastatin Calcium ND 79282040891 20 MG Orally Once a day Active 1 tablet Lisinopril ND 04506783009 20 MG Orally Once a day Active 1 tablet Hydrochlorothiazide ND 04498460506 25 MG Orally as needed Active 1 tablet in the morning Methotrexate NDC 0 2.5mg Orally Once a week October 04, 2017 Active 8 tabs altogether Omeprazole ND 00459816195 40 MG Orally Once a day Active 1 capsule Folic Acid ND 25119311869 1 MG Orally Once a day Active 1 tablet Vital Signs Date/Time: July 06, 2017 BMI 41.85 Index Weight 214.3 lbs Height 60 in Temperature 97.9 F Cardiac Monitoring Heart Rate 88 /min Blood Pressure Diastolic 68 mm Hg Blood Pressure Systolic 102 mm Hg Results No Known Results Summary Purpose eClinicalWorks Submission
--- OUTSIDE RECORDS SUMMARY | 2018-10-08 19:01 | XMS REPORT ---
Author Author [facility] Address Unknown Phone Unavailable Care Team Providers Care Tire Builder Operator Name Role Phone KOLE Aldo FONTAINE Unavailable Unavailable Payers Payer Name Policy Type Policy Number Effective Date Expiration Date Problems This patient has no known problems. Allergies, Adverse Reactions, Alerts Allergy Name Allergy Type Status Severity Reaction(s) Onset Date Inactive Date Treating Clinician Comments Penicillins DA Active U 2018-03-20 00:00:00 Sulfa (Sulfonamide Antibiotics) DA Active SV 2018-03-20 00:00:00 Medications This patient has no known medications. Encounters Start Date/Time End Date/Time Encounter Type Admission Type Attending Clinicians Care Facility Care Department Encounter ID 2018-10-08 07:07:00 2018-10-08 07:07:00 Outpatient [facility] [id number] Results Test Description Test Time Test Comments Text Results Atomic Results Result Comments SCR MAMM BILATERAL STELLA CAD DIGITAL 2018-08-09 17:27:46 - SCR MAMM BILATERAL STELLA CAD DIGITALBILATERAL DIGITAL SCREENING MAMMOGRAM 3D/2D WITH CAD: 08/09/2018CLINICAL: Asymptomatic. Digital breast tomosynthesis was performed in addition to routine CC and MLO views. Current mammographic images were evaluated by either a Cognia M-Vu or a [employer] ImageChecker CAD (computer aided detection system). Comparison is made to exams dated 07/05/2017 mammogram, 01/14 mammogram, and 12/18/2014 mammogram - [facility]. There are scattered fibroglandular tissues in both breasts. No suspicious mass, architectural distortion, malignant type calcification, or lymph node abnormality detected. Breast architecture is stable compared to prior exams.IMPRESSION: NEGATIVEThere is no mammographic evidence of malignancy. Resume annual screening mammography in one year. Deonna valentin/penrad:08/09/2018 17:27:46 copy to: Ravi Hagen M.D., ph: [phone], fax: [phone] Technologist: Lizbeth OCONNELL, [facility] sent: BIRADS 1-2 Normal Mammogram BI-RADS: 1 Negative PARATHYROID GLAND 2018-03-27 14:56:00 RUN DATE: 03/27/18 [place] [facility] PAGE 1 RUN TIME: 1456 Specimen Inquiry RUN USER: INTERFACE PATIENT: BREANNA BOJORQUEZ LOC: [facility] U #: [id number] AGE/SX: 72/F ROOM: 3048 RE03/26/18REG DR: Celso Ruiz MD : 49 BED: A DIS: STATUS: ADM Brandy TLOC: SPEC #: [id number] RECD: 03/26/18 STATUS: DOMINGO MARCUS #: [id number] OSKAR: 03/26/18- SUBM DR: Celso Ruiz MD ENTERED: 03/26/18 SP TYPE: PARA GLAND OTHR DR: ORDERED: GROSS MARKERS: FROZEN SECTIONS PROCEDURES: GROSS (03/27/18-1038) TISSUES: 1. PARATHYROID GLAND, NOS - LEFT 2. PARATHYROID GLAND, NOS - LEFT LOWER BX CLINICAL HISTORY COLLECTION DATE: 03/26/2018 PRIMARY HYPERPARATHYROID COMMENT Clinical correlation is recommended. FINAL DIAGNOSIS Left parathyroid, specimen #1, excision: NODULAR HYPERPLASIA, THYROID ATTACHED PORTION OF UNREMARKABLE PARATHYROID GLAND MEASURING LESS THAN 0.2 CM (SEEN ON TISSUE SUBMITTED FOR PERMANENT SECTION ONLY) NEGATIVE FOR MALIGNANCY Left lower parathyroid, specimen #2, excision: ENLARGED HYPERCELLULAR PARATHYROID TISSUE CONSISTENT WITH PARATHYROID ADENOMA NEGATIVE FOR MALIGNANCY DMW/gm D 410687, 878715 MACROSCOPIC The first specimen is received fresh for frozen section evaluation and consists of a nodular sun-red smooth soft portion of tissue measuring 1.7 x 1.4 x 0.7 cm. It is bisected and half is submitted for frozen section evaluation as (FS1A). CONTINUED ON NEXT PAGE RUN DATE: 03/27/18 [facility] PAGE 2 RUN TIME: 1456 Specimen Inquiry RUN USER: INTERFACE SPEC #: [id number] PATIENT: BREANNA BOJORQUEZ #[id number] (Continued) MACROSCOPIC (Continued) Parathyroid, frozen section diagnosis: THYROID TISSUE (DMW) The staining of the fresh frozen section is adequate. Section code: 1A- portion of the specimen submitted for frozen section evaluation; 1B- remaining specimen submitted for permanent section evaluation. The second specimen is received fresh for frozen section evaluation and consists of a 1.3 x 0.6 x 0.5 cm sun-brown smooth portion of tissue. It is transected and a sample is submitted for frozen section evaluation as (FS2A). Left lower parathyroid, frozen section diagnosis: CONSISTENT WITH PARATHYROID ADENOMA/HYPERPLASIA (DMW). The staining of the fresh frozen section is adequate. Section code: 2A- sample submitted for frozen section evaluation; 2B- remaining tissue submitted for permanent section evaluation. GROSS PERFORMED AT [facility] [address] [place] [phone] MICROSCOPIC MICROSCOPIC PERFORMED AT [facility] All of the stains, including any controls performed, stain appropriately. [facility] [address] [place] [address] [phone] PERFORMING SITE Processed at: [facility], [address] [address] CONTINUED ON NEXT PAGE RUN DATE: 03/27/18 [facility] PAGE 3 RUN TIME: 1456 Specimen Inquiry RUN USER: INTERFACE SPEC #: [id number] PATIENT: BREANNA BOJORQUEZ #[id number] (Continued) Signed SIGNATURE ON FILE Richard Keenejared Gentile 03/27/18 [address] CHEST W [place] [address] Patient Name: BREANNA BOJORQUEZ V MR #: [id number] : 1945 Age/Sex: 71/F Req #: [id number] Adm Physician: Ordered by: DERRICK MELENDREZ Report #: [id number] Location: ER Room/Bed: Procedure: [id number] CT/CT CHEST W Exam Date: 04/15/17 Exam Time: 1330 REPORT STATUS: Signed EXAM: CT Chest WITH contrast INDICATION: Chest pain COMPARISON: None available TECHNIQUE: Chest was scanned utilizing a multidetector helical scanner from the lung apex through the level of the diaphragm after administration of IV contrast. Coronal and sagittal reconstructions were submitted for interpretation. Protocol: Pulmonary embolus protocol IV CONTRAST: 100 mL of Isovue 370 COMPLICATIONS: None RADIATION DOSE: Total exam DLP: 508.7 mGy*cm. CTDIvol has been reviewed. It is below the limits set by the Radiation Protocol Committee (RPC). FINDINGS: LINES/ TUBES: None. Heart: No cardiomegaly. No pericardial effusion. Vessels: No filling defect is present in the main and post bifurcation right and left main pulmonary arteries. Limited evaluation of the lobar and segmental branches due to contrast bolus timing. Atherosclerotic calcifications of the thoracic aorta and coronary arteries. Mediastinum: No mediastinal or hilar mass or lymphadenopathy. Normal thyroid. Lungs: No parenchymal mass. No focal consolidation. Normal parenchyma. Bibasilar atelectasis. Pleura: No pleural effusion. No pneumothorax. Soft tissues: Normal. No axillary mass or lymphadenopathy. Bones: No acute osseous abnormality. Degenerative changes of the thoracic spine. Adrenal glands: No adrenal nodules.. Abdomen: The partially visualized portions of the upper abdomen are unremarkable.. IMPRESSION: 1. No evidence of pulmonary arterial embolism or thrombosis within the main pulmonary artery. Limited distal evaluation. 2. No acute abnormality of the chest. Signed by: Dr. Fabiola Kirkpatrick M.D. on 04/15/2017 1:58 PM Dictated By: FABIOLA KIRKPATRICK MD 0244 Transcribed By: ISABEL on 04/15/17 1159 COPY TO: DERRICK MELENDREZ CHEST SINGLE (PORTABLE) [place] [address] Patient Name: BREANNA BOJORQUEZ V MR #: [id number] : 1945 Age/Sex: 71/F Req #: [id number] Adm Physician: Ordered by: DERRICK MELENDREZ Report #: [id number] Location: ER Room/Bed: Procedure: [id number] DX/CHEST SINGLE (PORTABLE) Exam Date: 04/15/17 Exam Time: 1210 REPORT STATUS: Signed EXAMINATION: Chest, CHEST SINGLE (PORTABLE) INDICATION: Chest pain COMPARISON: Chest 2 views 03/04/2016 FINDINGS: LINES: None. Heart: Normal cardiac silhouette. Vascular: The pulmonary vasculature is within normal limits. Atherosclerotic calcifications of the aortic arch. Mediastinum: No mediastinal, hilar, or axillary mass or lymphadenopathy. Lungs: No parenchymal mass. No focal consolidation. Low lung volumes are present bilaterally. Pleura: No pleural effusion. No pneumothorax. Bones: No acute osseous abnormality. Degenerative changes of the thoracic spine. Soft tissues: Normal. Impression: No acute radiographic abnormality. Signed by: Dr. Fabiola Kirkpatrick M.D. on 04/15/2017 12:22 PM Dictated By: FABIOLA KIRKPATRICK MD Electronic ally Signed By: FABIOLA KIRKPATRICK MD on 04/15/17 1222 Transcribed By: ISABEL on 04/15/17 1222 COPY TO: DERRICK MELENDREZ
--- OUTSIDE RECORDS SUMMARY | 2018-10-08 19:01 | XMS REPORT ---
Author Author Kendal Lozoya [facility] eClinicalWorks Address Unknown Phone Unavailable Care Team Providers Care Chip Applying Machine Tender Name Role Phone Kendal Lozoya CP Unavailable Allergies, Adverse Reactions, Alerts Substance Reaction Event Type sulfa hives Drug Allergy penicillin hives Drug Allergy Problems Problem Type Condition Code Onset Dates Condition Status Problem Seronegative rheumatoid arthritis of multiple sites M06.09 Active Problem Inflammatory arthritis M19.90 Active Problem High risk medication use Z79.899 Active Assessment High risk medication use Z79.899 Active Assessment Seronegative rheumatoid arthritis of multiple sites M06.09 Active Assessment Inflammatory arthritis M19.90 Active Medications Medication Code System Code Instructions Start Date End Date Status Dosage Xarelto ND 26884085096 20 MG Orally Once a day Active 1 tablet with food Omeprazole ND 36579604568 40 MG Orally Once a day Active 1 capsule Atorvastatin Calcium ND 15759682799 20 MG Orally Once a day Active 1 tablet Folic Acid ND 80880549981 1 MG Orally Once a day Active 1 tablet Hydrochlorothiazide ND 84123919743 25 MG Orally as needed Active 1 tablet in the morning Lisinopril ND 07977132763 20 MG Orally Once a day Active 1 tablet Methotrexate NDC 0 2.5mg Orally Once a week November 19, 2017 Active 8 tabs altogether Vital Signs Date/Time: August 21, 2017 BMI 40.24 Index Weight 213 lbs Height 61 in Temperature 97.0 F Cardiac Monitoring Heart Rate 76 /min Blood Pressure Diastolic 72 mm Hg Blood Pressure Systolic 122 mm Hg Results No Known Results Summary Purpose eClinicalWorks Submission
--- OUTSIDE RECORDS SUMMARY | 2018-10-08 19:01 | XMS REPORT | Continuity of Care Document ---
Author Author [facility] Address Unknown Phone Unavailable Problems Problem Status Onset Date Classification Date Reported Comments Source ENT Active 08/13/2018 [facility] Seronegative rheumatoid arthritis of multiple sites Active Diagnosis 10/05/2018 Braeden Suer Inflammatory arthritis Active Problem 10/05/2018 Braeden Hagen High risk medication use Active Diagnosis 10/05/2018 Braeden Hagen Vitamin D deficiency Active Problem 10/05/2018 Braeden Hagen Age-related osteoporosis without current pathological fracture Active Problem 10/05/2018 Braeden Suer Localized osteoporosis with current pathological fracture with routine healing, subsequent encounter Active Diagnosis 01/26/2018 Braeden Hagen Right shoulder pain Active Diagnosis 10/24/2017 Braeden Hagen CHRONIC PAIN SYNDROME Active [facility] [place] Medications Medication Details Route Status Patient Instructions Ordering Provider Order Date Source Enbrel Mini 1 ml Subcutaneous Active 50 MG/ML Subcutaneous once a week Lozoya 06/19/2018 Braeden Hagen Methotrexate 8 tabs altogether Orally Active 2.5mg Orally Once a week Lozoya 01/17/2018 Braeden Hagen Rasuvo 1 injection Subcutaneous Active 25 MG/0.5ML Subcutaneous once per week Lozoya 01/17/2018 Braeden Hagen Fosamax 1 tablet Orally Active 70 MG Orally once a week Lozoya 01/17/2018 Braeden Hagen Enbrel Mini 1 ml Subcutaneous Active 50 MG/ML Subcutaneous once a week Lozoya 01/17/2018 Braeden Hagen Methotrexate 8 tabs altogether Orally Active 2.5mg Orally Once a week Lozoya 11/19/2017 Braeden Hagen Humira Pen 0.8 ml Subcutaneous Active 40 MG/0.8ML Subcutaneous once every 2 weeks Lozoya 10/17/2017 Braeden Hagen Methotrexate 8 tabs altogether Orally Active 2.5mg Orally Once a week Lozoya 10/04/2017 Braeden Hagen Vitamin D (Ergocalciferol) 1 capsule Orally Active 74750 UNIT Orally Once a week Hagen 08/23/2017 Braeden Hagen PredniSONE as directed Orally Active 5 MG Orally Once a day Akira 03/20/2017 Braeden Suer Atorvastatin Calcium 1 tablet Orally Active 20 MG Orally Once a day Lozoya Braeden Suer Lisinopril 1 tablet Orally Active 20 MG Orally Once a day Lozoya Braeden Suer Hydrochlorothiazide 1 tablet in the morning Orally Active 25 MG Orally as needed Lozoya Braeden Suer Omeprazole 1 capsule Orally Active 40 MG Orally Once a day Lozoya Braeden Hagen Folic Acid 1 tablet Orally Active 1 MG Orally Once a day Lozoya Braeden Hagen Carafate 1 tablet on an empty stomach Orally Active 1 GM Orally as needed [facility] Braeden Suer Glimepiride 1 tablet with breakfast or the first main meal of the day Orally Active 2 MG Orally Once a day Akira Braeden Suer Ondansetron 1 tablet on the tongue and allow to dissolve as needed Orally Active 4 MG Orally every 4 hrs Stuart Braeden Suer Methotrexate 8 tabs altogether Orally Active 2.5mg Orally Once a week Lozoya Braeden Hagen Xarelto 1 tablet with food Orally Active 20 MG Orally Once a day Stuart Braeden Hagen Vitamin D (Ergocalciferol) 1 capsule Orally Active 34377 UNIT Orally once a week [facility] Tizanidine HCl 1 tablet as needed Orally Active 2 MG Orally twice a day Stuart Braeden Hagen Tramadol HCl 1 tablet as needed Orally Active 50 MG Orally every 6 hrs [facility] Alendronate Sodium 1 tablet Orally Active 70 MG Orally once a week [facility] Methotrexate (Anti-Rheumatic) 8 tablets Orally Active 2.5 MG Orally once a week [facility] Diclofenac Sodium 1 tablet with food or milk Orally Active 75 MG Orally Twice a day Lozoya Braeden Hagen Solodyn as directed Orally Active 80 MG Orally [facility] Alendronate Sodium 1 tablet Orally Active 70 MG Orally once a week [facility] Gabapentin 1 capsule Orally Active 300 MG Orally Once a day [facility] Methotrexate TAKE 8 TABLETS ALTOGETHER ONCE A WEEK NA Active 2.5 MG Lozoya Braeden Hagen Culturelle as directed Orally Active - Orally Stuart Braeden Suer Furosemide 1 tablet Orally Active 20 MG [facility] 1 tablet Orally Active 1000 UNIT [facility] Fosamax 1 tablet Orally Active 70 MG Orally once a week Lozoya Braeden Hagen Allergies, Adverse Reactions, Alerts Substance Category Reaction Severity Reaction type Status Date Reported Comments Source sulfa Adverse Reaction hives Adverse Reaction Active 09/17/2018 Braeden Hagen penicillin Adverse Reaction hives Adverse Reaction Active 09/17/2018 Braeden Hagen Humira Adverse Reaction headahces, nausea Adverse Reaction Active 09/17/2018 Braeden Hagen Immunizations Immunization Date Given Site Status Last Updated Comments Source Results Order Name Results Value Reference Range Date Interpretation Comments Source Vital Signs Vital Sign Value Date Comments Source Weight 202 09/17/2018 Braeden Hagen Height 60 09/17/2018 Braeden Hagen Temperature Oral (F) 99.2 F 09/17/2018 Braeden Hagen Heart Rate 72 09/17/2018 Braeden Hagen Diastolic (mm Hg) 60 09/17/2018 Braeden Hagen Systolic (mm Hg) 108 09/17/2018 Braeden Hagen Weight 202.7 06/19/2018 Braeden Hagen Height 60 06/19/2018 Braeden Hagen Temperature Oral (F) 98.0 F 06/19/2018 Braeden Ahgen Heart Rate 97.0 06/19/2018 Braeden Hagen Diastolic (mm Hg) 70 06/19/2018 Braeden Hagen Systolic (mm Hg) 120 06/19/2018 Braedne Hagen Weight 200 03/19/2018 Braeden Hagen Height 61 03/19/2018 Braeden Hagen Temperature Oral (F) 98.2 F 03/19/2018 Braeden Hagen Heart Rate 74 03/19/2018 Braeden Hagen Diastolic (mm Hg) 70 03/19/2018 Braeden Hagen Systolic (mm Hg) 122 03/19/2018 Braeden Hagen Weight 203 01/17/2018 Braeden Hagen Height 61 01/17/2018 Braeden Hagen Temperature Oral (F) 97.4 F 01/17/2018 Braeden Hagen Heart Rate 76 01/17/2018 Braeden Hagen Diastolic (mm Hg) 70 01/17/2018 Braeden Hagen Systolic (mm Hg) 110 01/17/2018 Braeden Hagen Weight 213 10/17/2017 Braeden Hagen Height 61 10/17/2017 Braeden Hagen Temperature Oral (F) 96.8 F 10/17/2017 Braeden Hagen Heart Rate 72 10/17/2017 Braeden Hagen Diastolic (mm Hg) 60 10/17/2017 Braeden Hagen Systolic (mm Hg) 100 10/17/2017 Braeden Hgaen Weight 215.7 09/05/2017 Braeden Hagen Height 61 09/05/2017 Braeden Hagen Temperature Oral (F) 97.0 F 09/05/2017 Braeden Hagen Heart Rate 78 09/05/2017 Braeden Hagen Diastolic (mm Hg) 68 09/05/2017 Braeden Hagen Systolic (mm Hg) 132 09/05/2017 Braeden Hagen Weight 213 08/21/2017 Braeden Hagen Height 61 08/21/2017 Braeden Hagen Temperature Oral (F) 97.0 F 08/21/2017 Braeden Hagen Heart Rate 76 08/21/2017 Braeden Hagen Diastolic (mm Hg) 72 08/21/2017 Braeden Hagen Systolic (mm Hg) 122 08/21/2017 Braeden Hagen Weight 214.3 07/06/2017 Braeden Hagen Height 60 07/06/2017 Braeden Hagen Temperature Oral (F) 97.9 F 07/06/2017 Braeden Hagen Heart Rate 88 07/06/2017 Braeden Hagen Diastolic (mm Hg) 68 07/06/2017 Braeden Hagen Systolic (mm Hg) 102 07/06/2017 Braeden Hagen Weight 208 03/20/2017 Braeden Hagen Height 60 03/20/2017 Braeden Hagen Temperature Oral (F) 97.8 F 03/20/2017 Braeden Hagen Heart Rate 78 03/20/2017 Braeden Hagen Diastolic (mm Hg) 74 03/20/2017 Braeden Hagen Systolic (mm Hg) 122 03/20/2017 Braeden Hagen Encounters Location Location Details Encounter Type Encounter Number Reason For Visit Attending Provider ADM Date DC Date Status Source Procedures Procedure Code Date Perfomer Comments Source
--- OUTSIDE RECORDS SUMMARY | 2018-10-08 19:01 | XMS REPORT ---
Author Author Ravi Hagen Organization [employer] Address Unknown Phone Unavailable Care Team Providers Care Deputy Director Of Public Works Name Role Phone Ravi Hagen CP Unavailable [...]
--- OUTSIDE RECORDS SUMMARY | 2018-10-08 19:01 | XMS REPORT ---
Author Author Kendal Lozoya [facility] eClinical[employer] Address Unknown Phone Unavailable Care Team Providers Care Rubber Press Tender Name Role Phone Kendal Lozoya CP Unavailable Allergies, Adverse Reactions, Alerts Substance Reaction Event Type sulfa hives Drug Allergy penicillin hives Drug Allergy Problems Problem Type Condition Code Onset Dates Condition Status Assessment Age-related osteoporosis without current pathological fracture M81.0 Active Assessment Vitamin D deficiency E55.9 Active Assessment Right shoulder pain M25.511 Active Problem Vitamin D deficiency E55.9 Active [...] Instructions Start Date End Date Status Dosage Vitamin D (Ergocalciferol) [facility] 68776656903 63742 UNIT Orally once a week Active 1 capsule Lisinopril [facility] 55849072762 20 MG Orally Once a day Active 1 tablet Folic Acid ND 83135025169 1 MG Orally Once a day Active 1 tablet Methotrexate NDC 0 2.5mg Orally Once a week Active 8 tabs altogether Atorvastatin Calcium ND 30992655020 20 MG Orally Once a day Active 1 tablet Xarelto [facility] 04244593980 20 MG Orally Once a day Active 1 tablet with food Hydrochlorothiazide ND 85708184996 25 MG Orally as needed Active 1 tablet in the morning Humira Pen ND 83038547103 40 MG/0.8ML Subcutaneous once every 2 weeks October 17, 2017 Jan 15, 2018 Active 0.8 ml Omeprazole ND 58384784395 40 MG Orally Once a day Active 1 capsule Vital Signs Date/Time: October 17, 2017 BMI 40.24 Index Weight 213 lbs Height 61 in Temperature 96.8 F Cardiac Monitoring Heart Rate 72 /min Blood Pressure Diastolic 60 mm Hg Blood Pressure Systolic 100 mm Hg Results Name Result Date Reference Range Unit Abnormality Flag COMPREHENSIVE METABOLIC PANEL W/EGFR ----CALCIUM 10.2 20171017 8.6-10.4 mg/dL N ----CARBON DIOXIDE 28 20171017 20-31 mmol/L N ----ALT 15 20171017 6-29 U/L N ----CREATININE 0.80 20171017 0.50-0.99 mg/dL N ----AST 20 20171017 10-35 U/L N ----eGFR NON-AFR. VINCENTIAN 75 20171017 > OR=60 mL/min/1.73m2 N ----ALKALINE PHOSPHATASE 140 20171017 33-130 U/L H ----eGFR 87 20171017 > OR=60 mL/min/1.73m2 N ----BILIRUBIN, TOTAL 0.6 20171017 0.2-1.2 mg/dL N ----BUN/CREATININE RATIO NOT APPLICABLE 20171017 6-22 (calc) ----ALBUMIN/GLOBULIN RATIO 1.5 20171017 1.0-2.5 (calc) N ----SODIUM 142 20171017 135-146 mmol/L N ----GLOBULIN 2.5 20171017 1.9-3.7 g/dL (calc) N ----POTASSIUM 4.0 20171017 3.5-5.3 mmol/L N ----GLUCOSE 162 20171017 65-139 mg/dL H ----CHLORIDE 105 20171017 98-110 mmol/L N ----ALBUMIN 3.7 20171017 3.6-5.1 g/dL N ----UREA NITROGEN (BUN) 14 20171017 7-25 mg/dL N ----PROTEIN, TOTAL 6.2 20171017 6.1-8.1 g/dL N SED RATE BY MODIFIED WESTERGREN ----SED RATE BY MODIFIED WESTERGREN 15 20171017 < OR=30 mm/h N C-REACTIVE PROTEIN ----C-REACTIVE PROTEIN 1.7 20171017 <8.0 mg/L N CBC (INCLUDES DIFF/PLT) ----MCHC 33.6 20171017 32.0-36.0 g/dL N ----MCH 33.0 68643052 27.0-33.0 pg N ----PLATELET COUNT 234 57094010 140-400 Thousand/uL N ----RDW 12.8 67736347 11.0-15.0 % N ----BASOPHILS 0.6 63137361 % N ----ABSOLUTE NEUTROPHILS 4243 [id number] 5905-5642 cells/uL N ----ABSOLUTE LYMPHOCYTES 1562 96025886 850-3900 cells/uL N ----MPV 8.8 83191158 7.5-12.5 fL N ----ABSOLUTE BASOPHILS 38 43832178 0-200 cells/uL N ----HEMATOCRIT 36.6 86962855 35.0-45.0 % N ----NEUTROPHILS 66.3 17401237 % N ----MCV 98.1 80542180 80.0-100.0 fL N ----RED BLOOD CELL COUNT 3.73 03680435 3.80-5.10 Million/uL L ----ABSOLUTE MONOCYTES 538 90672942 200-950 cells/uL N ----ABSOLUTE EOSINOPHILS 19 42839095 15-500 cells/uL N ----HEMOGLOBIN 12.3 09411347 11.7-15.5 g/dL N ----EOSINOPHILS 0.3 87877899 % N ----WHITE BLOOD CELL COUNT 6.4 98515890 3.8-10.8 Thousand/uL N ----LYMPHOCYTES 24.4 58389452 % N ----MONOCYTES 8.4 06513850 % N VITAMIN D, 25-HYDROXY, LC/MS/MS ----VITAMIN D, 25-OH, TOTAL 31 56026202 30-100 ng/mL N Summary Purpose eClinicalWorks Submission
--- OUTSIDE RECORDS SUMMARY | 2018-10-08 19:01 | XMS REPORT ---
Author Author Kendal Lozoya [facility] eClinicalWorks Address Unknown Phone Unavailable Care Team Providers Care Construction Administrator Name Role Phone Kendal Lozoya CP Unavailable Allergies, Adverse Reactions, Alerts Substance Reaction Event Type sulfa hives Drug Allergy penicillin hives Drug Allergy Humira headahces, nausea Non Drug Allergy Problems Problem Type Condition Code Onset Dates Condition Status Assessment High risk medication use Z79.899 Active Assessment Age-related osteoporosis without current pathological fracture M81.0 Active Assessment Inflammatory arthritis M19.90 Active Problem Vitamin D deficiency E55.9 Active Problem High risk medication use Z79.899 Active Problem Age-related osteoporosis without current pathological fracture M81.0 Active Assessment Seronegative rheumatoid arthritis of multiple sites M06.09 Active Problem Seronegative rheumatoid arthritis of multiple sites M06.09 Active Problem Inflammatory arthritis M19.90 Active Medications Medication Code System Code Instructions Start Date End Date Status Dosage Hydrochlorothiazide [facility] 43616644385 25 MG Orally as needed Active 1 tablet in the morning Omeprazole ND 52419650521 40 MG Orally Once a day Active 1 capsule Diclofenac Sodium [facility] 63430042843 75 MG Orally Twice a day Active 1 tablet with food or milk Tramadol HCl [facility] 01216412776 50 MG Orally every 6 hrs Active 1 tablet as needed Xarelto [facility] 97753322596 20 MG Orally Once a day Active 1 tablet with food Solodyn [facility] 20603706681 80 MG Orally Active as directed Atorvastatin Calcium ND 18644774705 20 MG Orally Once a day Active 1 tablet Alendronate Sodium ND 88913674878 70 MG Orally once a week Active 1 tablet Gabapentin ND 47028862302 300 MG Orally Once a day Active 1 capsule Methotrexate (Anti-Rheumatic) ND 0 2.5 MG Orally once a week Active 8 tablets Methotrexate [facility] 25309683745 2.5 MG Active TAKE 8 TABLETS ALTOGETHER ONCE A WEEK Culturelle [facility] 78278596290 - Orally Active as directed Furosemide ND 86869795226 20 MG Orally Once a day Active 1 tablet Ondansetron [facility] 88567678735 4 MG Orally every 4 hrs Active 1 tablet on the tongue and allow to dissolve as needed Vitamin D [facility] 01806855108 1000 UNIT Orally Once a day Active 1 tablet Lisinopril [facility] 90814764334 20 MG Orally Once a day Active 1 tablet Folic Acid [facility] 92985435329 1 MG Orally Once a day Active 1 tablet Tizanidine HCl [facility] 06024652031 2 MG Orally twice a day Active 1 tablet as needed Vital Signs Date/Time: Jun 19, 2018 BMI 40 Index Weight 202.7 lbs Height 60 in Temperature 98.0 F Cardiac Monitoring Heart Rate 97.0 /min Blood Pressure Diastolic 70 mm Hg Blood Pressure Systolic 120 mm Hg Results No Known Results Summary Purpose eClinicalWorks Submission
--- OUTSIDE RECORDS SUMMARY | 2018-10-08 19:01 | XMS REPORT ---
Author Author Kendal Lozoya [facility] eClinicalWorks Address Unknown Phone Unavailable Care Team Providers Care Peoples[employer] Developer Name Role Phone Kendal Lozoya CP Unavailable Allergies, Adverse Reactions, Alerts Substance Reaction Event Type sulfa hives Drug Allergy penicillin hives Drug Allergy Humira headahces, nausea Non Drug Allergy Problems Problem Type Condition Code Onset Dates Condition Status Assessment Inflammatory arthritis M19.90 Active Assessment High risk medication use Z79.899 [...] Start Date End Date Status Dosage Xarelto [facility] 37777256932 20 MG Orally Once a day Active 1 tablet with food Ondansetron ND 27613160002 4 MG Orally every 4 hrs Active 1 tablet on the tongue and allow to dissolve as needed Atorvastatin Calcium ND 03057799984 20 MG Orally Once a day Active 1 tablet Tramadol HCl [facility] 44530467678 50 MG Orally every 6 hrs Active 1 tablet as needed Alendronate Sodium [facility] [address]-82 70 MG Orally once a week Active 1 tablet Enbrel Mini [facility] 72297175784 50 MG/ML Subcutaneous once a week Jan 17, 2018 Apr 17, 2018 Active 1 ml Tizanidine HCl ND 08433141612 2 MG Orally twice a day Active 1 tablet as needed Lisinopril ND 91269010796 20 MG Orally Once a day Active 1 tablet Folic Acid ND 51452834197 1 MG Orally Once a day Active 1 tablet Omeprazole ND 65178579907 40 MG Orally Once a day Active 1 capsule Methotrexate (Anti-Rheumatic) NDC 0 2.5 MG Orally once a week Active 8 tablets Hydrochlorothiazide [facility] 03364414338 25 MG Orally as needed Active 1 tablet in the morning Vitamin D (Ergocalciferol) [facility] 87039833265 72565 UNIT Orally once a week Active 1 capsule Vital Signs Date/Time: Mar 19, 2018 BMI 37.79 Index Weight 200 lbs Height 61 in Temperature 98.2 F Cardiac Monitoring Heart Rate 74 /min Blood Pressure Diastolic 70 mm Hg Blood Pressure Systolic 122 mm Hg Results No Known Results Summary Purpose eClinicalWorks Submission
--- OUTSIDE RECORDS SUMMARY | 2018-10-08 19:01 | XMS REPORT ---
Author Ravi Nelson Organization e[employer] Address Unknown Phone Unavailable Care Team Providers Care Activated Sludge Operator Name Role Phone Ravi Hagen CP Unavailable Allergies No Known Allergies Problems Problem Type Condition Code Onset Dates Condition Status Problem Seronegative rheumatoid arthritis of multiple sites M06.09 Active Problem Inflammatory arthritis M19.90 Active Problem High risk medication use Z79.899 Active Medications Medication Code System Code Instructions Start Date End Date Status Dosage Vitamin D (Ergocalciferol) [facility] 21936645374 44168 UNIT Orally Once a week August 23, 2017 Active 1 capsule Results No Known Results Summary Purpose eClinicalWorks Submission
--- OUTSIDE RECORDS SUMMARY | 2018-10-08 19:01 | XMS REPORT ---
Author Author Ravi Hagen Organization [employer] Address Unknown Phone Unavailable Care Team Providers Care Mobile Engineer Name Role Phone Ravi Hagen CP Unavailable [...]
--- OUTSIDE RECORDS SUMMARY | 2018-10-08 19:01 | XMS REPORT | Summary of Care ---
Author Author Roger Carl, Ciarra Organization Unknown Address Unknown Phone Unavailable Care Team Providers Care Controls Engineer Name Role Phone JERRY WINN M.D. Unavailable Unavailable MEAGAN FOLEY, SUNNI BLAIR Unavailable Unavailable Unavailable Unavailable Functional Status Name Dates Details Functional status health issues are not documented Status: Name Dates Details Cognitive status health issues are not documented Status: Problems Name Dates Details Active medical history not documented Status: Medications Name Dates Details Diclofenac Sodium 75 MG Oral Tablet Delayed Release Active Omeprazole CPDR * Refills: 0 Active Folic Acid TABS * Refills: 0 Active Lipitor 20 MG Oral Tablet * Refills: 0 Active Lisinopril TABS * Refills: 0 Active Methotrexate 2.5 MG Oral Tablet * Refills: 0 Active hydroCHLOROthiazide 25 MG Oral Tablet * Refills: 0 Active Furosemide 20 MG Oral Tablet * Refills: 0 Active Gabapentin 300 MG Oral Capsule * Refills: 0 Active Fosamax TABS * Refills: 0 Active Vitamin D3 TABS * Refills: 0 Active Ondansetron HCl - 4 MG Oral Tablet * Refills: 0 Active Ondansetron 4 MG Oral Tablet Disintegrating * Refills: 0 Active Allergies and Adverse Reactions Name Dates Details Penicillins (Allergy) Status: Active Sulfa Drugs (Allergy) Status: Active Past Medical History Name Dates Details History of arthritis (V13.4, Z87.39) Status: Resolved History of cataract (V12.49, Z86.69) Status: Resolved History of diabetes mellitus (V12.29, Z86.39) Status: Resolved History of hypertension (V12.59, Z86.79) Status: Resolved History of thyroid disorder (V12.29, Z86.39) Status: Resolved Procedures Procedure Dates Details History of Hysterectomy Completed History of Carpal tunnel surgery Completed History of Thyroid Surgery Sub-Total Thyroidectomy Completed History of Ankle Surgery Completed Immunization Name Dates Details Immunizations not documented Family History Name Dates Details Family history of cardiac disorder (V17.49, Z82.49) Status: Active Family history of malignant neoplasm (V16.9, Z80.9) Status: Active Social History Name Dates Details Unknown if ever smoked Vital Signs Date Test Result Details No Known Vitals to report Results Date Description Value Details Results not documented Plan of Care Name Dates Details Planned Observations Planned Goals not documented Instructions Name Dates Details Instructions not documented Encounters Appointment; JERRY WINN M.D. Encounter Diagnosis: Problem not documented On: 25-Jul-2018 13:00
--- OUTSIDE RECORDS SUMMARY | 2018-10-08 19:01 | XMS REPORT ---
Author Author Ravi Hagen Organization [employer] Address Unknown Phone Unavailable Care Team Providers Care Cop Name Role Phone Ravi Hagen CP Unavailable Allergies No Known Allergies Problems Problem Type Condition Code Onset Dates Condition Status Problem Seronegative rheumatoid arthritis of multiple sites M06.09 Active Problem Inflammatory arthritis M19.90 Active Problem High risk medication use Z79.899 Active Medications No Known Medications Results No Known Results Summary Purpose eClinicalWorks Submission
--- OUTSIDE RECORDS SUMMARY | 2018-10-08 19:01 | XMS REPORT ---
Author Author Ravi Hagen Organization [employer] Address Unknown Phone Unavailable Care Team Providers Care Agricultural Service Technician Name Role Phone Ravi Hagen CP Unavailable [...]
[2018-10-08] MEDS ORDERED: SODIUM CHLORIDE 0.9% 1000ML 1,000 ML IV ONE ×2 (19:15→22:45)
[2018-10-08] MEDS ORDERED: METHYLPREDNISOLONE SOD SUCC 125 MG/2ML VIAL IV ONE (19:15)
[2018-10-08 19:26] LABS: BASOPHILS % 0.3 % (0.0-1.0); EOSINOPHILS % 0.1 % (0.0-6.0); HEMOGLOBIN 9.8 g/dL (12.0-16.0); LYMPHOCYTES # (AUTO) 1.1 (1.0-3.2); LYMPHOCYTES % 14.4 % (18.0-39.1); MEAN CORPUSCULAR HEMOGLOBIN 33.1 pg (28-32); MEAN CORPUSCULAR HGB CONC 33.8 g/dL (31-35); MONOCYTES # (AUTO) 1.2 (0.2-0.8); MONOCYTES % 16.6 % (4.4-11.3); NEUTROPHILS # (AUTO) 4.9 (2.1-6.9); PLATELET COUNT 190 x10e3/uL (140-360); RED BLOOD COUNT 2.96 x10e6/uL (3.6-5.1); RED CELL DISTRIBUTION WIDTH 16.4 % (11.7-14.4)
[2018-10-08] MEDS ORDERED: LEVOFLOXACIN 500MG/D5W 100ML 100 ML IV ONE (19:30)
[2018-10-08] MEDS ORDERED: ACETAMINOPHEN 1000 MG/100 ML IV ONE (19:30)
[2018-10-08 19:43] LABS: ALBUMIN 3.1 g/dL (3.5-5.0); ANION GAP 12.6 mmol/L (8-16); CALCIUM 9.1 mg/dL (8.4-10.2); CREATININE, SERUM 1.05 mg/dL (0.57-1.11); POTASSIUM 3.6 mmol/L (3.5-5.1)
[2018-10-08] MEDS ORDERED: IOPAMIDOL 370 MG/ML 200 ML INFUS..BTL INJ ONE (20:34)
[2018-10-08] MEDS ORDERED: SODIUM CHLORIDE 0.9% 50ML 50 ML ONE (20:34)
--- NOTE | 2018-10-08 20:57 | Diagnostic Imaging Report ---
EXAMINATION: CHEST SINGLE (PORTABLE) INDICATION: ^FEVER ^Y COMPARISON: Chest radiograph dated 04/15/[address] from that date FINDINGS: AP view TUBES and LINES: None. LUNGS/PLEURA: Extensive bilateral lower lobes airspace opacities with potential developing consolidation in the left lower lobe. Prominent interstitial markings and Riri B lines. HEART AND MEDIASTINUM: Enlarged cardiac silhouette. BONES AND SOFT TISSUES: No acute osseous lesion. Soft tissues are unremarkable. UPPER ABDOMEN: No free air under the diaphragm. IMPRESSION: Extensive bilateral lower lobe airspace opacities may represent developing infectious/inflammatory process however pulmonary edema may also have this appearance. Follow-up is recommended. Signed by: Jay Garcia MD on 10/08/2018 8:53 PM
[2018-10-08 21:14] LABS: STREPTOCOCCUS GRP A ANTIGEN NEGATIVE (NEGATIVE)
[2018-10-08 21:23] LABS: INFLUENZAE A&B ANTIGEN (RAPID) NEGATIVE (NEGATIVE)
[2018-10-08] MEDS ORDERED: ONDANSETRON HCL INJ 2MG/ML 2ML 2 MG/ML VIAL IV ONE (21:50)
--- NOTE | 2018-10-08 22:03 | Diagnostic Imaging Report ---
History: Sore throat, shortness of breath, status post vocal cord repositioning earlier today. Comparison studies: None Technique: Axial, coronal and sagittal images from the skull base to the thoracic inlet. Coronal and sagittal images reconstructed from the axial data. Dose modulation, iterative reconstruction, and/or weight based adjustment of the mA/kV was utilized to reduce the radiation dose to as low as reasonably achievable. Intravenous contrast: 100 cc of Isovue 370. Findings: Soft tissues: Mild medial deviation of left true vocal cord, left aryepiglottic fold with effacement of left pyriform sinus. Asymmetric soft tissue prominence in left supraglottic false cord and left aryepiglottic fold. Sclerosis and medial rotation of left aretynoid. Mild to moderate narrowing of the laryngeal airway. No enhancing mass or peripheral rim-enhancing fluid collection. Lymph nodes: No radiographically significant adenopathy. Vessels: Arteries and veins are patent. Atherosclerotic calcifications in the aortic arch, left carotid bulb and bilateral carotid siphon. Glands (thyroid, parotid and submandibular): Normal in size and symmetric. No masses. Fatty atrophy of bilateral parotid gland. Nonspecific linear radiopaque densities in the posterior and left lateral aspect surrounding the left lobe of the thyroid gland, may be related to prior intervention. Orbits: No abnormalities. Paranasal sinuses: Minimal mucosal thickening in left sphenoid sinus. Temporal bones: No abnormalities. Skull base and facial bones: Intact. Cervical spine: Multilevel degenerative disc disease without significant canal or foraminal stenosis. Incidental finding: Nonspecific groundglass opacification in bilateral lung apices may represent aspiration or infectious/inflammatory process in combination with respiratory motion artifacts. IMPRESSION: 1. Asymmetric soft tissue prominence in left aryepiglottic fold and left supraglottic region, in combination with medial deviation of left true vocal cord and areytenoid possibly represents left vocal cord paralysis. 2. Mild to moderate narrowing of the laryngeal airway. Comparison with prior studies if made available will be helpful. 3. Nonspecific groundglass opacifications in bilateral lung apices may represent aspiration, infection/inflammatory process or pulmonary edema in appropriate clinical setting. Signed by: Dr. Anum Landin M.D. on 10/08/2018 10:00 PM
[2018-10-08] MEDS ORDERED: LEVOFLOXACIN 750MG/D5W 150ML IV SCH (22:45)
[2018-10-08] MEDS ORDERED: DEXTROSE 50% SYRINGE 50 ML IV PRN (22:45)
[2018-10-08] MEDS ORDERED: ACETAMINOPHEN 1000 MG/100 ML IV PRN (22:45)
--- OUTSIDE RECORDS SUMMARY | 2018-10-08 22:49 | XMS REPORT | Clinical Summary ---
Author Author [facility] Address Unknown Phone Unavailable Care Team Providers Care Supervisor Hot Dip Plating Name Role Phone Ba Collier MD PCP [...] Encounters Care Team Description Date Type [facility]ty [facility] Dg Jimenez, MD Jerri Davidson, MD Graeme Qureshi, Tyler Pritchard, DO Fall, initial encounter (Primary Dx); Compression fracture of body of thoracic vertebra (HCC); Contusion of face, initial encounter 05/19/2018 [facility] General Surgery - Encounter 05/25/2018 [...] Taken Vital Sign Reading 05/25/2018 4:01 PM OTHER SALES SUPPORT WORKER Blood Pressure 111/57 05/25/2018 4:01 PM OTHER SALES SUPPORT WORKER Pulse 79 05/25/2018 4:01 PM OTHER SALES SUPPORT WORKER Temperature 36.2 C (97.2 F) 05/25/2018 4:01 PM OTHER SALES SUPPORT WORKER Respiratory Rate 18 05/25/2018 4:01 PM OTHER SALES SUPPORT WORKER Oxygen Saturation 96% - Inhaled Oxygen - Concentration 05/19/2018 7:09 PM OTHER SALES SUPPORT WORKER Weight 96.6 kg (213 lb) 05/19/2018 7:09 PM OTHER SALES SUPPORT WORKER Height 152.4 cm (5') 05/19/2018 7:09 PM OTHER SALES SUPPORT WORKER Body Mass Index 41.6 Plan of Treatment [...] Diagnosis POC GLUCOSE Routine 05/25/2018 3:57 PM OTHER SALES SUPPORT WORKER POC GLUCOSE Routine 05/25/2018 11:39 AM OTHER SALES SUPPORT WORKER POC GLUCOSE Routine 05/25/2018 6:11 AM OTHER SALES SUPPORT WORKER POC GLUCOSE Routine 05/24/2018 8:17 PM OTHER SALES SUPPORT WORKER POC GLUCOSE Routine 05/24/2018 4:26 PM OTHER SALES SUPPORT WORKER POC GLUCOSE Routine 05/24/2018 11:17 AM OTHER SALES SUPPORT WORKER POC GLUCOSE Routine 05/24/2018 6:14 AM OTHER SALES SUPPORT WORKER POC GLUCOSE Routine 05/23/2018 9:11 PM OTHER SALES SUPPORT WORKER POC GLUCOSE Routine 05/23/2018 12:23 PM OTHER SALES SUPPORT WORKER POC GLUCOSE Routine 05/23/2018 6:36 AM OTHER SALES SUPPORT WORKER HC COMPLETE BLD COUNT Routine 05/23/2018 W/AUTO DIFF 4:54 AM OTHER SALES SUPPORT WORKER POC GLUCOSE Routine 05/22/2018 8:20 PM OTHER SALES SUPPORT WORKER XR CHEST 1 VW PORTABLE Routine 05/22/2018 4:31 PM OTHER SALES SUPPORT WORKER GRAM STAIN Routine 05/22/2018 4:19 PM OTHER SALES SUPPORT WORKER URINE CULTURE Routine 05/22/2018 4:19 PM OTHER SALES SUPPORT WORKER POC GLUCOSE Routine 05/22/2018 4:08 PM OTHER SALES SUPPORT WORKER URINALYSIS SCREEN AND Routine 05/22/2018 MICROSCOPY, WITH REFLEX 3:47 PM OTHER SALES SUPPORT WORKER TO CULTURE POC GLUCOSE Routine 05/22/2018 12:05 PM OTHER SALES SUPPORT WORKER POC GLUCOSE Routine 05/22/2018 5:36 AM OTHER SALES SUPPORT WORKER HC COMPLETE BLD COUNT Routine 05/22/2018 W/AUTO DIFF 5:24 AM OTHER SALES SUPPORT WORKER POC GLUCOSE Routine 05/21/2018 8:16 PM OTHER SALES SUPPORT WORKER POC GLUCOSE Routine 05/21/2018 4:50 PM OTHER SALES SUPPORT WORKER POC GLUCOSE Routine 05/21/2018 11:54 AM OTHER SALES SUPPORT WORKER XR FOOT 3+ VW RIGHT Routine 05/21/2018 9:38 AM OTHER SALES SUPPORT WORKER XR ANKLE 3+ VW RIGHT Routine 05/21/2018 9:38 AM OTHER SALES SUPPORT WORKER ESTIMATED GFR Routine 05/21/2018 7:09 AM OTHER SALES SUPPORT WORKER IONIZED CALCIUM Routine 05/21/2018 7:09 AM OTHER SALES SUPPORT WORKER BASIC METABOLIC PANEL Routine 05/21/2018 7:09 AM OTHER SALES SUPPORT WORKER HC COMPLETE BLD COUNT Routine 05/21/2018 W/AUTO DIFF 7:09 AM OTHER SALES SUPPORT WORKER POC GLUCOSE Routine 05/21/2018 6:18 AM OTHER SALES SUPPORT WORKER POC GLUCOSE Routine 05/20/2018 8:10 PM OTHER SALES SUPPORT WORKER LIPID PANEL STAT 05/20/2018 4:33 PM OTHER SALES SUPPORT WORKER HEMOGLOBIN A1C STAT 05/20/2018 4:33 PM OTHER SALES SUPPORT WORKER ESTIMATED GFR STAT 05/20/2018 4:33 PM OTHER SALES SUPPORT WORKER HC COMPLETE BLD COUNT STAT 05/20/2018 W/AUTO DIFF 4:33 PM OTHER SALES SUPPORT WORKER COMPREHENSIVE METABOLIC STAT 05/20/2018 PANEL 4:33 PM OTHER SALES SUPPORT WORKER POC GLUCOSE Routine 05/20/2018 4:12 PM OTHER SALES SUPPORT WORKER POC GLUCOSE Routine 05/20/2018 12:21 PM OTHER SALES SUPPORT WORKER POC GLUCOSE Routine 05/20/2018 7:42 AM OTHER SALES SUPPORT WORKER MRI LUMBAR SPINE WO STAT 05/20/2018 CONTRAST 4:38 AM OTHER SALES SUPPORT WORKER XR TIBIA FIBULA 2 VW LEFT STAT 05/20/2018 12:22 AM OTHER SALES SUPPORT WORKER CT LUMBAR SPINE WO STAT 05/19/2018 CONTRAST 10:52 PM OTHER SALES SUPPORT WORKER CT CERVICAL SPINE WO STAT 05/19/2018 CONTRAST 10:52 PM OTHER SALES SUPPORT WORKER CT HEAD WO CONTRAST STAT 05/19/2018 10:51 PM OTHER SALES SUPPORT WORKER XR KNEE 4+ VW LEFT STAT 05/19/2018 8:10 PM OTHER SALES SUPPORT WORKER after 10/07/2017 Results * POC glucose (05/25/2018 3:57 PM OTHER SALES SUPPORT WORKER) Only the most recent of 22 results within the time period is included. POC glucose 169 (H) 65 - 100 mg/dL [place] Comment: JOHN CAMARA Meter ID: [id number] [facility] Beauty School Instructor: [facility] Specimen Performing Organization Address City/State/Zipcode Phone Number [facility] DEPARTMENT OF [address] [place] [address] PATHOLOGY AND GENOMIC MEDICINE [place] JOHN CAMARA [address] [place], [place] [id number] [place] [address] * CBC with platelet and differential (05/23/2018 4:54 AM OTHER SALES SUPPORT WORKER) Only the most recent of 4 results within the time period is included. WBC 9.2 4.2 - 11.0 k/uL [facility] RBC 3.40 (L) 4.04 - 5.86 m/uL [facility] HGB 10.9 (L) 11.5 - 15.3 g/dL [facility] HCT 33.6 (L) 34.0 - 45.0 % [facility] MCV 98.8 (H) 80.0 - 98.[address] [facility] MCH 32.1 27.0 - 34.[address] [facility] MCHC 32.4 31.5 - 36.5 g/dL [facility] RDW - SD 50.4 37.0 - 51.[address] [facility] MPV 9.0 7.4 - 10.[address] [facility] Platelet count 226 150 - 400 k/uL [facility] Nucleated RBC 0.00 /[address] [facility] Neutrophils 75.2 (H) 36.0 - 66.0 % [facility] Lymphocytes 16.2 (L) 24.0 - 44.0 % [facility] Monocytes 7.3 (H) 0.0 - 6.0 % [facility] Eosinophils 0.3 0.0 - 6.0 % [facility] Basophils 0.2 0.0 - 1.2 % [facility] Immature 0.8 0.0 - 1.0 % [place] granulocytes [facility] Specimen Blood Performing Organization Address City/State/Zipcode Phone Number [facility] OF [facility] [place] [address] PATHOLOGY AND GENOMIC MEDICINE [facility] [address] [place], [place] [id number] [place] [address] * XR Chest 1 Vw Portable (05/22/2018 4:31 PM OTHER SALES SUPPORT WORKER) Specimen Narrative Performed At EXAMINATION:XR CHEST 1 VW PORTABLE [facility] CLINICAL HISTORY:fever COMPARISON:None IMPRESSION: Mild patchy bibasilar atelectasis Moderate cardiomegaly. Atherosclerosis arch aorta No infiltrate congestion or effusion No pneumothorax. Visualized skeleton intact Single view chest. [id number] Procedure Note Interface, Radiology Results Incoming - 05/22/2018 4:44 PM OTHER SALES SUPPORT WORKER EXAMINATION: XR CHEST 1 VW PORTABLE CLINICAL HISTORY: fever COMPARISON: None IMPRESSION: Mild patchy bibasilar atelectasis Moderate cardiomegaly. Atherosclerosis arch aorta No infiltrate congestion or effusion No pneumothorax. Visualized skeleton intact Single view chest. [id number] Performing Organization Address City/[facility]/Zipcode Phone Number [facility] [address] [place] [address] * Gram stain (05/22/2018 4:19 PM OTHER SALES SUPPORT WORKER) Gram stain Rare WBC's [place] result Few Gram positive rods [facility] Comment: HOSPITAL Specimen Information Specimen Source: Urine Specimen Site: Clean catch Specimen Urine Performing Organization Address [facility] Phone Number [facility] DEPARTMENT OF [address] [place] [address] PATHOLOGY [place] [address] HOSPITAL * Urine culture (05/22/2018 4:19 PM OTHER SALES SUPPORT WORKER) Urine culture Streptococcus group B [place] isolate 10-3 cfu/ml [facility] () [facility] Comment: Specimen Information Specimen Source: Urine Specimen Site: Clean catch Specimen Urine Performing Organization Address [facility] Phone Number [facility] DEPARTMENT OF [address] [place] [address] PATHOLOGY AND GENOMIC MEDICINE [address] * Urinalysis screen and microscopy, with reflex to culture (05/22/2018 3:47 PM OTHER SALES SUPPORT WORKER) Specimen site Clean catch [facility] Color, UA Straw [facility] Appearance, UA Clear [facility] Specific 1.010 1.001 - 1.035 [place] gravity, UA [facility] pH, UA 5.0 5.0 - 8.5 [facility] Protein, UA Negative Negative [facility] Glucose, UA Negative Negative [facility] Ketones, UA Negative Negative [facility] Bilirubin, UA Negative Negative [facility] Blood, UA Negative Negative [facility] Nitrite, UA Negative Negative [facility] Urobilinogen, Negative <2.0 [facility] Leukocyte Trace (A) Negative [place] esterase, UA [facility] WBC, UA 3 0 - 5 /HPF [facility] RBC, UA 3 0 - 5 /HPF [facility] Bacteria, UA None seen None seen [facility] Yeast, UA None seen [facility] Yeast with None seen [place] pseudohyphae, [facility] Specimen Urine Performing Organization Address City/State/Zipcode Phone Number [facility] DE[facility] OF [facility] [place] [address] PATHOLOGY AND GENOMIC MEDICINE [place] [address] [place], [place] [id number] [place] [address] * XR Foot 3+ Vw Right (05/21/2018 9:38 AM OTHER SALES SUPPORT WORKER) Specimen Narrative Performed At EXAMINATION:XR FOOT 3VW RIGHT [facility] INDICATION:Pain COMPARISON:None IMPRESSION: 1.No acute fracture or dislocation. Bony demineralization. 2.Moderate degenerative changes of the first metatarsophalangeal joint with adjacent soft tissue prominence. 3.Milder degenerative changes of the talonavicular, naviculocuneiform and tarsometatarsal joints. Vascular calcifications. [facility]-[id number] Procedure Note Interface, Radiology Results Incoming - 05/21/2018 9:59 AM OTHER SALES SUPPORT WORKER EXAMINATION: XR FOOT 3 VW RIGHT INDICATION: Pain COMPARISON:None IMPRESSION: 1. No acute fracture or dislocation. Bony demineralization. 2. Moderate degenerative changes of the first metatarsophalangeal joint with adjacent soft tissue prominence. 3. Milder degenerative changes of the talonavicular, naviculocuneiform and tarsometatarsal joints. Vascular calcifications. [facility]-[id number] Performing Organization Address City/State/Zipcode Phone Number [facility] [address] [place] [address] * XR Ankle 3+ Vw Right (05/21/2018 9:38 AM OTHER SALES SUPPORT WORKER) Specimen Narrative Performed At EXAM: HM [facility] [...] variant. Calcified atherosclerotic plaque posterior tibial artery. [facility]-[id number] Procedure Note Interface, Radiology Results Incoming - 05/21/2018 9:46 AM OTHER SALES SUPPORT WORKER EXAM: XR ANKLE 3 VW RIGHT INDICATION: Pain rt Fall COMPARISON: None. IMPRESSION: Mild soft tissue swelling overlying the lateral malleolus. No definite acute fracture or dislocation. Minimal arthrosis tibiotalar, talonavicular, and tarsotarsal joints. Small enthesophyte posterior and moderately sized enthesophyte inferior calcaneus. Partially visualized moderate arthrosis right hallux metatarsophalangeal joint. Bipartite medial sesamoid common anatomic variant. Calcified atherosclerotic plaque posterior tibial artery. [facility]-[id number] Performing Organization Address City/[facility]/Zipcode Phone Number [facility] [address] [place] [address] * Estimated GFR (05/21/2018 7:09 AM OTHER SALES SUPPORT WORKER) Only the most recent of 2 results within the time period is included. Pathologist [facility] Estimated GFR 65 mL/min/1.73 m2 [place] Comment: JOHN CAMARA [facility] G1 >=90 Normal or high G2 60-89Mildly decreased [id number] Mildly to moderately decreased P7x60-79 Moderately to severely decreased G4 15-29Severely decreased G5 <15Kidney failure The eGFR was calculated using the Chronic Kidney Disease Epidemiology Collaboration (CKD-EPI) equation. Interpretation is based on recommendations of the National Kidney Foundation-Kidney Disease Outcomes Quality Initiative (NKF-KDOQI) published in 2014. Specimen Plasma specimen Performing Organization Address City/State/Zipcode Phone Number [facility] DEPARTMENT [address] [place] [address] PATHOLOGY AND GENOMIC MEDICINE [facility] [address] [place], [place] [id number] [place] [address] * Ionized calcium (05/21/2018 7:09 AM OTHER SALES SUPPORT WORKER) Pathologist [facility] pH 7.43 [facility] Ionized calcium 1.18 1.11 - 1.32 mmol/L [facility] Specimen Plasma specimen Performing Organization Address City/State/Zipcode Phone Number [facility] DEPARTMENT OF [address] [facility] [place]. [place] [id number] PATHOLOGY AND GENOMIC MEDICINE [place] [address] [facility] [place]. [address] * Basic metabolic panel (05/21/2018 7:09 AM OTHER SALES SUPPORT WORKER) Sodium 139 135 - 150 mEq/L [facility] Potassium 3.7 3.5 - 5.0 mEq/L [facility] Chloride 101 98 - 112 mEq/L [facility] CO2 27 24 - 31 mmol/L [facility] Anion gap 11@ANIO 7 - 15 mEq/L [facility] BUN 17 7 - 18 mg/dL [facility] Creatinine 0.90 0.50 - 0.90 mg/dL [facility] Glucose 121 (H) 65 - 100 mg/dL [facility] Calcium 9.0 8.8 - 10.2 mg/dL [facility] Specimen Plasma specimen Performing Organization Address City/[facility] Phone Number [place] [phone] [facility] [place] [address] PATHOLOGY AND GENOMIC MEDICINE [place] [address] [facility] [address] * Hemoglobin A1c (05/20/2018 4:33 PM OTHER SALES SUPPORT WORKER) Hemoglobin A1C 6.1 (H) 4.0 - 6.0 % [place] Comment: JOHN CAMARA [facility] Less than 6% - Goal of therapy for Type II Diabetes Less than 7%-Goal of therapy for Type I Diabetes Less than 8%-Accepta ble control for Type I or Type II Diabetes Greater than 8%-Unacceptabl e control; action indicated. (ADA94) Specimen Performing Organization Address City/[facility]/Zipcode Phone Number [facility] DEPARTMENT OF [address] [place] [address] PATHOLOGY AND GENOMIC MED[facility]INE [facility] JO TERRYNo [address] * Lipid panel (05/20/2018 4:33 PM OTHER SALES SUPPORT WORKER) Cholesterol 136 0 - 199 mg/dL [facility] Triglycerides 130 0 - 149 mg/dL [facility] HDL cholesterol 47 40 - 9,999 mg/dL [facility] LDL cholesterol 86Comment: Result obtained by 0 - 99 mg/dL [place] direct LDL measurement [facility] Lipid panel See below [place] interpretation Comment: [facility] Total Cholesterol [facility] (mg/dL) [facility] LDL Cholesterol (mg/dL) <200 Desirable <100 Optimal 200-239Borderline -[id number] 29Near or above optimal >=240High 130-159Borderline- high [...] specimen Performing Organization Address City/State/Zipcode Phone Number [facility] [address] [place] [address] PATHOLOGY AND GENOMIC MEDICINE [facility] JO TERRYNo [address] * Comprehensive metabolic panel (05/20/2018 4:33 PM OTHER SALES SUPPORT WORKER) Sodium 140 135 - 150 mEq/L [facility] Potassium 4.0 3.5 - 5.0 mEq/L [facility] Chloride 104 98 - 112 mEq/L [facility] CO2 25 24 - 31 mmol/L [facility] Anion gap 11@ANIO 7 - 15 mEq/L [facility] BUN 12 7 - 18 mg/dL [facility] Creatinine 0.80 0.50 - 0.90 mg/dL [facility] Glucose 181 (H) 65 - 100 mg/dL [facility] Calcium 9.2 8.8 - 10.2 mg/dL [facility] Protein 6.2 (L) 6.3 - 8.3 g/dL [facility] Albumin 3.1 (L) 3.5 - 5.0 g/dL [facility] A/G ratio 1.0 0.7 - 3.8 [facility] Alkaline 103 0 - 104 U/L [place] phosphatase [facility] AST 19 10 - 35 U/L [facility] ALT 15 5 - 50 U/L [facility] Total bilirubin 0.5 0.2 - 1.2 mg/dL [facility] Specimen Plasma specimen Performing Organization Address City/State/Zipcode Phone Number [facility] DEPARTMENT OF [address] [place] [address] PATHOLOGY AND GENOMIC MEDICINE [place] [address] * MRI Lumbar Spine Wo Contrast (05/20/2018 4:38 AM OTHER SALES SUPPORT WORKER) Specimen Narrative Performed At [facility] EXAMINATION: MRI [...] body which may be subacute, clinically correlate. [facility]-[id number] Procedure Note [facility], Radiology Results Incoming - 05/20/2018 8:03 AM OTHER SALES SUPPORT WORKER EXAMINATION: MRI LUMBAR SPINE WO CONTRAST CLINICAL [...] body which may be subacute, clinically correlate. [facility]-[id number] Performing Organization Address City/State/Zipcode Phone Number [facility] [address] [place] [address] * XR Tibia Fibula 2 Vw Left (05/20/2018 12:22 AM OTHER SALES SUPPORT WORKER) Specimen Narrative Performed At EXAMINATION:XR TIBIA FIBULA 2 VW LEFT [facility] CLINICAL HISTORY:pain COMPARISON:05/19/2018 knee x-ray. IMPRESSION: Generalized bone demineralization. Total knee arthroplasty is present. Chronic fracture of the mid fibular diaphysis. No acute fracture or acute subluxation. [facility]-[id number] Procedure Note Interface, Radiology Results Incoming - 05/20/2018 3:17 AM OTHER SALES SUPPORT WORKER EXAMINATION: XR TIBIA FIBULA 2 VW LEFT CLINICAL HISTORY: pain COMPARISON: 05/19/2018 knee x-ray. IMPRESSION: Generalized bone demineralization. Total knee arthroplasty is present. Chronic fracture of the mid fibular diaphysis. No acute fracture or acute subluxation. [facility]-[id number] Performing Organization Address City/State/Zipcode Phone Number [facility] [address] [place] [address] * CT Lumbar Spine Wo Contrast (05/19/2018 10:52 PM OTHER SALES SUPPORT WORKER) Specimen Narrative Performed At EXAMINATION: CT LUMBAR [...] determine acuity of the other lumbar fractures. [facility]-[id number] Procedure Note Hm Interface, Radiology Results Incoming - 05/19/2018 11:07 PM OTHER SALES SUPPORT WORKER EXAMINATION: CT LUMBAR SPINE WO CONTRAST CLINICAL [...] determine acuity of the other lumbar fractures. [facility]-[id number] Performing Organization Address City/State/Zipcode Phone Number [facility] [address] [place] [address] * CT Cervical Spine Wo Contrast (05/19/2018 10:52 PM OTHER SALES SUPPORT WORKER) Specimen Narrative Performed At EXAMINATION: CT CERVICAL [...] abnormality identified. No evidence of acute fracture. [id number] Procedure Note Interface, Radiology Results Incoming - 05/19/2018 11:04 PM OTHER SALES SUPPORT WORKER EXAMINATION: CT CERVICAL SPINE WO CONTRAST CLINICAL [...] abnormality identified. No evidence of acute fracture. [facility]-[id number] Performing Organization Address City/State/Zipcode Phone Number [facility] [address] [place] [address] * CT Head Wo Contrast (05/19/2018 10:51 PM OTHER SALES SUPPORT WORKER) Specimen Narrative Performed At EXAMINATION: [facility]: trauma COMPARISON:None TECHNIQUE: Noncontrast enhanced [...] detailed above with no acute intracranial abnormality. [facility]-[id number] Procedure Note Interface, Radiology Results Incoming - 05/19/2018 10:57 PM OTHER SALES SUPPORT WORKER EXAMINATION: CT HEAD WO CONTRAST CLINICAL HISTORY: [...] detailed above with no acute intracranial abnormality. [facility]-[id number] Performing Organization Address City/[facility]/Zipcode Phone Number [facility] [address] [place] [address] * XR Knee 4+ Vw Left (05/19/2018 8:10 PM OTHER SALES SUPPORT WORKER) Specimen Narrative Performed At EXAMINATION:XR KNEE 4VW LEFT [facility] CLINICAL HISTORY:pain COMPARISON:None IMPRESSION: Patient is status post left knee arthroplasty. No evidence for hardware failure or loosening. Lucency is seen of the proximal diaphysis of the left fibula, suspicious for an acute nondisplaced fracture. No soft tissue abnormalities. [facility]-[id number] Procedure Note Hm Interface, Radiology Results Incoming - 05/19/2018 9:45 PM OTHER SALES SUPPORT WORKER EXAMINATION: XR KNEE 4 VW LEFT CLINICAL HISTORY: pain COMPARISON: None IMPRESSION: Patient is status post left knee arthroplasty. No evidence for hardware failure or loosening. Lucency is seen of the proximal diaphysis of the left fibula, suspicious for an acute nondisplaced fracture. No soft tissue abnormalities. [facility]-[id number] Performing Organization Address City/[facility] Phone Number [facility] [address] [place] [address] after 10/07/2017 Insurance Type Payer Benefit Subscriber ID Effective Phone Address Plan / Dates Group HMO AETNA MEDICARE AETNA xxxxxxxx 2017-P MEDICARE resent HMO/PPO [facility] Advance Directives Patient has advance care planning documents on file. For more information, tobi quiroga contact: Alonzo Payton [address] [place] [address]
[2018-10-08] MEDS: ALBUTEROL SULF 0.083% NEB SOLN 3 ML NEB NEB SCH (23:15)
[2018-10-08] MEDS: IPRATROPIUM BROMIDE 0.02% 2.5 ML NEB NEB SCH (23:15)
[2018-10-08] MEDS: LEVOFLOXACIN 500MG/D5W 100ML IV SCH (23:46)
[2018-10-09] MEDS ORDERED: ATENOLOL50 MG PO (00:06)
[2018-10-09] MEDS ORDERED: FOLIC ACID1 MG PO (00:06)
[2018-10-09] MEDS ORDERED: FUROSEMIDE20 MG PO (00:06)
[2018-10-09] MEDS ORDERED: XARELTO20 MG PO (00:06)
[2018-10-09] MEDS ORDERED: VITAMIN D31000 UNIT PO (00:06)
[2018-10-09] MEDS ORDERED: ALENDRONATE SOD70 MG PO (00:06)
[2018-10-09] MEDS ORDERED: ZOFRAN4 MG PO (00:06)
[2018-10-09] MEDS ORDERED: GABAPENTIN300 MG PO (00:06)
[2018-10-09] MEDS ORDERED: METHOTREXATE2.5 MG PO (00:06)
[2018-10-09 01:59] LABS: BILIRUBIN,URINE NEGATIVE (NEGATIVE); CLARITY,URINE CLOUDY (CLEAR); COLOR,URINE YELLOW (YELLOW); KETONES,URINE 1+ (NEGATIVE); LEUKOCYTE ESTERASE ,URINE NEGATIVE (NEGATIVE); NITRITE,URINE POSITIVE (NEGATIVE); PROTEIN,URINE DIPSTICK NEGATIVE (NEGATIVE); URINE UROBILINOGEN 0.2 mg/dL (0.2 - 1)
[2018-10-09 02:14] LABS: BACTERIA,URINE MANY /HPF; EPITHELIAL CELLS,URINE FEW /LPF; TRANSITIONAL EPI CELLS,URINE FEW; WBC,URINE (MAN) >50 /HPF (0-5)
[2018-10-09] MEDS: ALBUTEROL SULF 0.083% NEB SOLN 3 ML NEB NEB SCH ×4 (02:45→19:15)
[2018-10-09] MEDS: METHYLPREDNISOLONE SOD SUCC 40 MG/ML VIAL 1ML IV SCH ×5 (05:19→23:59)
[2018-10-09 05:53] LABS: BASOPHILS % 0.2 % (0.0-1.0); HEMATOCRIT 27.4 % (34.2-44.1); HEMOGLOBIN 9.2 g/dL (12.0-16.0); LYMPHOCYTES # (AUTO) 0.6 (1.0-3.2); LYMPHOCYTES % 10.5 % (18.0-39.1); MEAN CORPUSCULAR HEMOGLOBIN 32.9 pg (28-32); MEAN CORPUSCULAR HGB CONC 33.6 g/dL (31-35); MEAN CORPUSCULAR VOLUME 97.9 fL (81-99); MONOCYTES # (AUTO) 0.1 (0.2-0.8); MONOCYTES % 2.7 % (4.4-11.3); NEUTROPHILS # (AUTO) 4.5 (2.1-6.9); NEUTROPHILS % 85.5 % (38.7-80.0); PLATELET COUNT 190 x10e3/uL (140-360); RED CELL DISTRIBUTION WIDTH 16.4 % (11.7-14.4)
[2018-10-09 06:12] LABS: CREATINE KINASE MB 4.4 ng/mL (0-5.0)
[2018-10-09] MEDS: IPRATROPIUM BROMIDE 0.02% 2.5 ML NEB NEB SCH ×3 (07:00→19:15)
[2018-10-09] MEDS: INSULIN REGULAR, HUMAN 100 UNIT/1 ML 3ML VIAL SQ SCH ×4 (07:39→21:00)
[2018-10-09] MEDS: ASPIRIN 325 MG TAB PO SCH ×2 (07:40→17:00)
[2018-10-09] MEDS: FOLIC ACID 1 MG TAB PO SCH (09:00)
--- NOTE | 2018-10-09 09:00 | NUR ---
Received patient AAOX3 via stretcher. Patient on 3L/min o2 via NC. No s/s of distress. Edema BLE. Can ambulate with assistance. Notified patient to call for help when needed using the call mcgraw button. IV to the left AC 20 gauge. Bed in lowest position, call mcgraw within reach, and side rails up x2. Made a copy of her advance directive and placed copy in chart.
[2018-10-09 09:02] LABS: ALANINE AMINOTRANSFERASE 15 IU/L (0-55); ALBUMIN 2.9 g/dL (3.5-5.0); ALKALINE PHOSPHATASE 91 IU/L (40-150); ANION GAP 15.4 mmol/L (8-16); BLOOD UREA NITROGEN 15 mg/dL (7-26); BUN/CREATININE RATIO 16 (6-25); CALCIUM 8.5 mg/dL (8.4-10.2); CARBON DIOXIDE 22 mmol/L (22-29); CHLORIDE 103 mmol/L (98-107); CREATININE, SERUM 0.91 mg/dL (0.57-1.11); EST GLOMERULAR FILTRATION RATE > 60 ML/MIN (60-); GLUCOSE 192 mg/dL (74-118); POTASSIUM 3.4 mmol/L (3.5-5.1); SODIUM 137 mmol/L (136-145)
[2018-10-09 09:30] VITALS: BP 111/60
[2018-10-09] MEDS: GABAPENTIN 300 MG CAP PO SCH ×2 (10:00→18:26)
[2018-10-09] MEDS: LISINOPRIL 2.5 MG TAB PO SCH (10:00)
[2018-10-09] MEDS: PANTOPRAZOLE SOD 40 MG TABEC PO SCH ×2 (10:00→18:26)
[2018-10-09] MEDS: HYDROCHLOROTHIAZIDE 25 MG TAB PO SCH (10:00)
[2018-10-09] MEDS: FUROSEMIDE 20 MG TAB PO SCH (10:00)
[2018-10-09] MEDS: RIVAROXABAN 20 MG TABLET PO SCH (10:00)
[2018-10-09] MEDS: ATORVASTATIN 20 MG TAB PO SCH (10:00)
[2018-10-09 10:03] VITALS: BP 111/60
--- NOTE | 2018-10-09 11:22 | History and Physical ---
REASON FOR ADMISSION: 1. Aspiration pneumonia. 2. Hypertension. 3. Diabetes. 4. Anemia. 5. Urinary tract infection. 6. Hyperlipidemia. HISTORY OF PRESENT ILLNESS: The patient is a lady with a vocal cord paralysis, who yesterday had a procedure done to weak vocal cord. Post procedure, the patient was noted to have increased fevers and chills, therefore presents to the emergency room, where she has been noted to have a high fever, possible aspiration pneumonia on chest x-ray, so she had been admitted for further evaluation and treatment. The patient does state on review of systems that prior to the procedure, she had been having some cough . PAST MEDICAL HISTORY: Significant for hypertension, diabetes, anemia, and hyperlipidemia. MEDICATIONS: See JUL. ALLERGIES: SEE JUL. SOCIAL HISTORY: Nonsmoker. Nondrinker. Lives at home with her . FAMILY HISTORY: Hypertension. PHYSICAL EXAMINATION: VITAL SIGNS: Temperature 98.6, pulse 74, blood pressure 136/74, sats 98% on nasal cannula. GENERAL: She is no apparent distress, lying in bed. NECK: Supple. CARDIOVASCULAR: Regular rate and rhythm. LUNGS: Clear to auscultation bilaterally except some mild rhonchi in the bases. ABDOMEN: Good bowel sounds. Soft, nontender. EXTREMITIES: No clubbing or cyanosis. NEUROLOGIC: Nonfocal. ASSESSMENT AND PLAN: 1. Aspiration pneumonia. We will continue with IV antibiotics. We will do a modified barium swallow evaluation as well when she is in the hospital. 2. Hypertension. Continue with current care monitoring. 3. Diabetes. Continue with current care monitoring. 4. Anemia. Continue to monitor p.r.n. 5. Urinary tract infection. Continue with the antibiotics. 6. Hyperlipidemia. Continue with her cholesterol medicine. Please see hospital chart for full details. MD LORRIE Holguin/DA /[id number]
[2018-10-09 12:06] VITALS: BP 107/57
--- NOTE | 2018-10-09 13:15 | NUR ---
Patient is returning from restroom. Assisted patient back into bed. Patient on NC running at 3 L/min. Side rails up x2, call mcgraw within reach, and bed in lowest position. Notified patient to call for assistance when needed.
[2018-10-09] MEDS: ATENOLOL 50 MG TAB PO SCH (13:18)
[2018-10-09 15:34] LABS: CREATINE KINASE MB 10.3 ng/mL (0-5.0)
[2018-10-09 16:11] VITALS: BP 119/63
--- NOTE | 2018-10-09 17:25 | NUR ---
CALLED DR. ROUSE TO NOTIFY ELEVATED TROPONIN LEVEL. ORDERED TO CONSULT DR. LIZ MELTON.
--- NOTE | 2018-10-09 17:35 | NUR ---
RECEIVED ORDERS FROM DR. MELTON'S TEAM. ORDERS CARRIED OUT.
--- NOTE | 2018-10-09 18:55 | NUR ---
Assisted patient to the restroom and back into bed. elevated HOB and NC is in place running at 3L/min. No s/s of distress. Bed in lowest position, side rails up x2, and call mcgraw within reach.
--- NOTE | 2018-10-09 19:00 | NUR ---
patient received awake, alert, lying quietly in bed. no c/o pain noted. pm assessment complete. patient instructed to call for assistance when needed.
[2018-10-09 19:30] VITALS: BP 101/52
[2018-10-09 20:00] VITALS: BP 101/52
[2018-10-09] MEDS ORDERED: SODIUM CHLORIDE 0.9% 250ML 250 ML ONE (21:28)
[2018-10-09] MEDS: LEVOFLOXACIN 500MG/D5W 100ML IV SCH (21:49)
[2018-10-10] VITALS (9 sets, daily range): BP systolic 94–112; BP diastolic 52–62
--- NOTE | 2018-10-10 | NUR ---
patient appears to be resting quietly. no c/o pain noted at this time.
[2018-10-10] MEDS: ALBUTEROL SULF 0.083% NEB SOLN 3 ML NEB NEB SCH ×7 (02:45→23:40)
--- NOTE | 2018-10-10 05:00 | NUR ---
patient oob to bathroom x 3 throughout the night with assistance. patient voids without difficulty.
[2018-10-10] MEDS: METHYLPREDNISOLONE SOD SUCC 40 MG/ML VIAL 1ML IV SCH ×4 (05:40→23:47)
[2018-10-10] MEDS: IPRATROPIUM BROMIDE 0.02% 2.5 ML NEB NEB SCH ×5 (06:00→23:40)
--- NOTE | 2018-10-10 07:04 | NUR ---
RECEIVED PATIENT RESTING IN BED. NO ACUTE DISTRESS NOTED. CALL LIGHT WITHIN REACH. BED IN THE LOWEST POSITION. Addendum: 10/10/18 at 1031 by ULISSES MILLS RN WRONG TIME, 0654 IS RIGHT TIME.
--- NOTE | 2018-10-10 07:15 | NUR ---
SPOKE TO DR. BURNS ABOUT PATIENT BEING NPO, PER MD KEEP PATIENT NPO UNTIL EITHER DR. MELTON OR DR. DYER SEES PATIENT. NOTIFIED PATIENT, SHE IS OK WITH IT.
[2018-10-10 07:19] LABS: CHOL/HDL RATIO 4.7 (3.0-3.6)
[2018-10-10] MEDS: INSULIN REGULAR, HUMAN 100 UNIT/1 ML 3ML VIAL SQ SCH ×4 (07:30→21:00)
[2018-10-10] MEDS: ASPIRIN 325 MG TAB PO SCH ×2 (08:00→17:34)
[2018-10-10] MEDS: GABAPENTIN 300 MG CAP PO SCH ×2 (09:00→17:34)
[2018-10-10] MEDS: RIVAROXABAN 20 MG TABLET PO SCH (09:00)
[2018-10-10] MEDS: ATENOLOL 50 MG TAB PO SCH (09:00)
[2018-10-10] MEDS: LISINOPRIL 2.5 MG TAB PO SCH (09:00)
[2018-10-10] MEDS: PANTOPRAZOLE SOD 40 MG TABEC PO SCH ×2 (09:00→17:34)
--- NOTE | 2018-10-10 13:13 | NUR ---
PAGED DR. MELTON IN REGARDS TO PATIENT BEING HUNGRY AND NPO. WAITING ON A CALL BACK.
[2018-10-10] MEDS ORDERED: ENOXAPARIN SODIUM INJ 100 MG/ML SYR SC ONE (16:34)
[2018-10-10] MEDS: HYDROCHLOROTHIAZIDE 25 MG TAB PO SCH (17:33)
[2018-10-10] MEDS: FUROSEMIDE 20 MG TAB PO SCH (17:33)
[2018-10-10] MEDS: FOLIC ACID 1 MG TAB PO SCH (17:33)
[2018-10-10] MEDS: ATORVASTATIN 20 MG TAB PO SCH (17:34)
--- NOTE | 2018-10-10 19:00 | NUR ---
patient received awake, alert, lying quietly in bed. no c/o pain noted. respirations even and unlabored. 02/2l/nc in use. pm assessment complete. patient npo after mn tonight for a procedure tomorrow. patient verbalizes understanding of this. patient instructed to call for assistance when needed.
--- NOTE | 2018-10-10 19:00 | NUR ---
REPORT GIVEN TO ONCOMING NURSE, WALKING ROUNDS DONE. PATIENT IS RESTING IN BED, RESPIRATIONS EVEN AND UNLABORED, NO ACUTE DISTRESS NOTED. CALL LIGHT WITHIN REACH. BED IN THE LOWEST POSITION.
--- NOTE | 2018-10-10 19:18 | NUR ---
Nutrition Screen Note RD Recommendation for Physician: -Rec ADAT to ADA 1800; diet texture per DIRECTOR OF ROOMS/MD Plan of Care: RD following, monitoring for tolerance and adequacy Nutrition reason for involvement: Nutrition Risk Trigger MST Primary Diagnose(s): PNA, elevated troponin PMH: hypertension, diabetes, anemia, and hyperlipidemia Ht: 60in Wt: 200lb BMI: 39.1kg/m2 IBW: 100lb RD Assessment: (10/10) Chart reviewed. Labs and meds reviewed. 72yo F, who was admitted for fever and chills after procedure for vocal cord paralysis. Visited pt in the room. 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 No complains of nausea or vomiting. LBM 10/09. Pt complained of hunger. Currently NPO. Will continue to monitor and follow. Current Diet: NPO Malnutrition Evaluation (10/10/2018) The patient does not meet criteria for a specified degree of malnutrition at this time. Will re-evaluate at follow-up as appropriate. Diet Education Needs Assessment: Diet education not indicated. Nutrition Care Level: low Signed: Irene Torrez, MS, RD, LD
[2018-10-10] MEDS: LEVOFLOXACIN 500MG/D5W 100ML IV SCH (22:48)
[2018-10-11] VITALS (13 sets, daily range): BP systolic 105–144; BP diastolic 52–74
--- NOTE | 2018-10-11 00:11 | Consultation ---
DATE OF CONSULTATION: 10/10/2018 Cardiology Consult Note REASON FOR CONSULT: Elevated troponin. CHIEF COMPLAINT: Pneumonia. HISTORY OF PRESENT ILLNESS: This is a pleasant 72-year-old lady with history of vocal cord paralysis, diabetes, hypertension, hyperlipidemia, anemia, who recently had a procedure done for treatment of her vocal cord paralysis. Postprocedure, the patient had fevers, chills, and presented to the emergency room with findings concerning for aspiration pneumonia. She was admitted for evaluation and treatment. Troponin noted to be elevated with a peak of 1.2 with CK-MB of 10 on admission, now down trended. The patient denies any vincent chest pain or heart failure symptoms. She has a history of atrial fibrillation, on Xarelto. Otherwise, no previous CV history. PAST MEDICAL HISTORY: Hypertension; diabetes; atrial fibrillation, on Xarelto; hyperlipidemia; anemia; vocal cord paralysis. OUTPATIENT MEDICATIONS: See MAR. ALLERGIES: PENICILLIN AND SULFA. REVIEW OF SYSTEMS: A 10-point review of systems as per HPI, otherwise negative. SOCIAL HISTORY: The patient does not smoke, drink, or abuse drugs. FAMILY HISTORY: Significant for hypertension. PHYSICAL EXAMINATION: VITAL SIGNS: Temperature afebrile, pulse 97, respiratory rate 17, blood pressure 112/62, saturating 97% on nasal cannula. GENERAL: Elderly white female, in no acute distress. CARDIOVASCULAR: Regular rate and rhythm. No murmurs, rubs, or gallops. LUNGS: Some fine crackles at the right middle lobe, otherwise clear to auscultation. ABDOMEN: Obese, soft, nontender, nondistended. EXTREMITIES: No significant edema or ulcerations. NEURO AND PSYCH: Alert and oriented to person, place, and time. Normal affect. ASSESSMENT AND PLAN: 1. Non-ST elevation myocardial infarction. 2. Aspiration pneumonia. 3. Diabetes. 4. Hypertension. 5. Hyperlipidemia. 6. Atrial fibrillation, on Xarelto, currently in sinus rhythm. PLAN: Discussed with the patient and the son. The rise in followup troponin concerning for non-ST elevation MS. The patient has risk factors and given her age, she likely has disease. Recommended coronary angiogram with possible PCI. The patient's son works in the organic lab worker at [employer] and explained to the patient and is in agreement. The patient understands the procedure, the risks, and the benefits and agrees to proceed. We will stop the Xarelto, start her on Lovenox, and proceed with coronary angiography and possible intervention tomorrow. The patient is currently in sinus rhythm. Continue home dose of beta-blockers. Echocardiogram is pending. Thank you for this consult. We will continue to follow. MD SHAYLA Do/DA /[id number]
[2018-10-11] MEDS: ALBUTEROL SULF 0.083% NEB SOLN 3 ML NEB NEB SCH ×6 (03:47→23:50)
[2018-10-11] MEDS: METHYLPREDNISOLONE SOD SUCC 40 MG/ML VIAL 1ML IV SCH ×4 (05:46→23:52)
[2018-10-11] MEDS: IPRATROPIUM BROMIDE 0.02% 2.5 ML NEB NEB SCH ×4 (06:15→23:50)
--- NOTE | 2018-10-11 06:54 | NUR ---
RECEIVED PATIENT RESTING IN BED. RESPIRATIONS EVEN AND UNLABORED, NO ACUTE DISTRESS NOTED. CALL LIGHT WITHIN REACH. BED IN THE LOWEST POSITION.
[2018-10-11] MEDS: INSULIN REGULAR, HUMAN 100 UNIT/1 ML 3ML VIAL SQ SCH ×4 (07:30→20:53)
--- NOTE | 2018-10-11 07:44 | NUR ---
PATIENT OFF UNIT TO OIL BURNER JOURNEYMAN.
[2018-10-11] MEDS: ASPIRIN 325 MG TAB PO SCH ×2 (08:00→16:47)
[2018-10-11] MEDS ORDERED: LIDOCAINE HCL 2% LOCAL 20 ML VIAL ONE (08:58)
[2018-10-11] MEDS ORDERED: IOPAMIDOL 370 MG/ML 200 ML INFUS..BTL INJ ONE (08:58)
[2018-10-11] MEDS ORDERED: HEPARIN SOD/SOD CHLORIDE 2,000 ML ONE (08:58)
[2018-10-11] MEDS: GABAPENTIN 300 MG CAP PO SCH ×2 (09:00→16:47)
[2018-10-11] MEDS: PANTOPRAZOLE SOD 40 MG TABEC PO SCH ×2 (09:00→16:47)
[2018-10-11] MEDS ORDERED: VERAPAMIL HCL 2.5 MG/ML 2 ML VIAL ONE (09:03)
[2018-10-11] MEDS ORDERED: MIDAZOLAM HCL 2 MG/2 ML VIAL ONE (09:03)
[2018-10-11] MEDS ORDERED: HEPARIN SOD (PORCINE) 1000 UNIT/ML 30ML ONE (09:03)
[2018-10-11] MEDS ORDERED: SODIUM CHLORIDE 0.9% 1000ML 1,000 ML ONE (09:04)
[2018-10-11] MEDS ORDERED: FENTANYL CITRATE/PF 100MCG/2 ML INJ ONE (09:04)
--- NOTE | 2018-10-11 09:15 | NUR ---
0915 Received pt to Rm #9 Identiferx2 Handoff from Caitlyn RN C No fix.Rt TR band intact for decrease 13cc in band at 0945.No hematoma or oozing. Back to baseline orientation. Respiration shallow and regular on room air. 98% Abdomen soft and non tender denies necessity to defecate or urinate. Bilateral PPx4 Pt/Dp. Iv to left arm infusing at kvo rate via dial a flow Site w/o s/s infiltration.Neo Cohen Daughter rohit Bell Aware of POC and has copies of TR band teaching tool and copy of diagram. 0945 (13cc in band) -2cc positive 12cc no bleeding positive neuro vascular function. 1000 -2cc positive 10cc no bleeding positive neuro vascular function. 1015 -2cc TR band removed no hematoma or bleeding Coban dressing with 2x2 and Coban and arm splint Transported to floor care with RN escort. NO gross issues pain pallor pressure or dysrhythmia. Assisted with snack tray.and tolerate juice x2 w/o N/V To floor care with ZOLL monitor, Stable VS and EKG. Report handoff on phone to Vikash RN and Ferdinand RN in Room and report to tele-room. NO c/o CP or SOB. Assist to room and left pt in Rn Care Side rails up, call light at bedside, and be in low position.Rt TR band site with dry intact arm splint on place till am Normal neuro vascular function.Pt voiced no concerns or c/o.
--- NOTE | 2018-10-11 10:00 | NUR ---
1000 (-2cc) TR band completion.Posiitve 11cc. NO gross issues pain pallor pressure or dysarthria.Neuro vascular function intact. Splint in place an report given via phone to Tatiana Oliver No s/s bleeding Rt Radial pulses adequate. stable vs and ekg. To floor care per bed and zoll monitoring escorted to floor care per RN escort. Denies c/o Cp or SOB Family available via cell Neo Son Daughter in law Crystal ds/rn
--- NOTE | 2018-10-11 10:15 | NUR ---
PATIENT BACK TO UNIT FROM PROCEDURE.
--- NOTE | 2018-10-11 10:45 | NUR ---
PAGED DR. MOREAU TO ASK IF OK TO ADMINISTER ORDERED XARELTO.
--- NOTE | 2018-10-11 11:08 | NUR ---
DR. MOREAU CALLED BACK AND STATED IT WAS OK TO CONTINUE PATIENT'S XARELTO AT BEDTIME.
[2018-10-11] MEDS: HYDROCHLOROTHIAZIDE 25 MG TAB PO SCH (12:19)
[2018-10-11] MEDS: FOLIC ACID 1 MG TAB PO SCH (12:19)
[2018-10-11] MEDS: FUROSEMIDE 20 MG TAB PO SCH (12:19)
[2018-10-11] MEDS: ATORVASTATIN 20 MG TAB PO SCH (12:19)
[2018-10-11] MEDS: LISINOPRIL 2.5 MG TAB PO SCH (12:20)
[2018-10-11] MEDS: ATENOLOL 50 MG TAB PO SCH (12:20)
--- NOTE | 2018-10-11 14:27 | NUR ---
PENDING DISCHARGE FOR TODAY
--- NOTE | 2018-10-11 16:48 | Operative Report ---
DATE OF PROCEDURE: 10/11/2018 SURGEON: Guillermo Gregory MD INDICATION FOR PROCEDURE: Non-ST elevation PR. PREPROCEDURE ASSESSMENT: The risks, benefits, and alternatives to treatment were explained to the patient prior to the procedure. Informed consent was obtained and documented in the medical record. The patient's medical history, social history, and prior experience with anesthesia were reviewed and the patient was deemed to be an appropriate candidate for moderate sedation. MEDICATIONS: Please see nursing notes for medications administered during the procedure. PROCEDURES PERFORMED: 1. Coronary angiography, right radial approach. 2. Left heart catheterization. PROCEDURE IN DETAIL: The patient was brought to the cardiac catheterization laboratory in a fasting state. Right wrist was prepped and draped in a sterile fashion. A 6-Chilean Slender sheath was inserted in the right radial artery using modified Seldinger technique without any issues. Coronary angiography was performed using a 5-Chilean Phobee radial catheter for the RCA and a 6-Chilean XB 3.0 guide for the left main coronary artery. Left heart catheterization was performed using Phoebe radial catheter. All catheters were removed over a wire. Multiple orthogonal views were taken of each coronary artery. Access site was closed using a TR band device. The case ended without any immediate complications. FINDINGS: Left main coronary artery: Large caliber, no significant CAD. LAD: Large caliber goes to the apex, one large diagonal branch. Some tortuosity and mild plaquing, otherwise no obstructive CAD. Left circumflex: Medium-sized nondominant left circumflex. One large OM branch tortuosity without any significant obstructive CAD. RCA: Large dominant RCA with a medium size RPL and RPDA systems, mild plaquing in distal RCA, otherwise no significant obstructive CAD. Left heart catheterization showed no gradient across the aortic valve. LVEDP about 15 mmHg. ESTIMATED BLOOD LOSS: 20 mL. GRAFTS AND IMPLANTS: None. SPECIMEN REMOVED: None. COMPLICATIONS: None. FINAL RECOMMENDATIONS: 1. Continue optimal medical therapy and risk factor control. 2. Follow up in clinic 2 weeks post procedure. Guillermo Gregory MD KVP/MODL /[id number]
--- NOTE | 2018-10-11 19:15 | NUR ---
patient received awake, alert, lying quietly in bed. no c/o pain noted. dressing to right arm c,d,i. pm assessment complete. patient instructed to call for assistance when needed.
--- NOTE | 2018-10-11 19:16 | NUR ---
REPORT GIVEN TO ONCOMING NURSE, PATIENT IS RESTING IN BED. RESPIRATIONS EVEN AND UNLABORED, NO ACUTE DISTRESS NOTED. DENIES PAIN OR DISCOMFORT. CALL LIGHT WITHIN REACH. BED IN THE LOWEST POSITION.
[2018-10-11] MEDS: RIVAROXABAN 20 MG TABLET PO SCH (20:53)
--- NOTE | 2018-10-11 21:39 | Progress Note ---
DATE: 10/11/2018 Cardiology Progress Note SUBJECTIVE: Had heart catheterization performed by me earlier today, did not show any obstructive CAD. OBJECTIVE: VITAL SIGNS: Temperature afebrile, pulse 72, respiratory rate 18, blood pressure 138/63, saturating 98% on nasal cannula. GENERAL: Elderly female, in no acute distress. CARDIOVASCULAR: Regular rate and rhythm. No murmurs, rubs, or gallops. LUNGS: Clear to auscultation. ABDOMEN: Obese, soft, nontender, nondistended. NEURO AND PSYCH: Alert and oriented to person, place, and time. Normal affect. ASSESSMENT: 1. Non-ST elevation myocardial infarction. 2. Aspiration pneumonia. 3. Diabetes. 4. Hypertension. 5. Hyperlipidemia. 6. Atrial fibrillation on Xarelto, currently in sinus rhythm. PLAN: Coronary angiography did not show any significant CAD. Continue medical therapy. Troponin elevation likely related to aspiration. Thank you for this consult. We will continue to follow. MD SHAYLA Do/AD /[id number]
[2018-10-11] MEDS: LEVOFLOXACIN 500MG/D5W 100ML IV SCH (21:45)
--- NOTE | 2018-10-11 22:30 | NUR ---
new iv #22 gauge placed to left posterior forearm x 1 stick. iv to left ac d/c'd due to leaking at the site. clean, dry dressing applied to site.
[2018-10-12] VITALS (7 sets, daily range): BP systolic 91–112; BP diastolic 55–59
[2018-10-12] MEDS: ALBUTEROL SULF 0.083% NEB SOLN 3 ML NEB NEB SCH ×6 (02:55→22:47)
[2018-10-12] MEDS: METHYLPREDNISOLONE SOD SUCC 40 MG/ML VIAL 1ML IV SCH ×3 (05:57→17:01)
--- NOTE | 2018-10-12 07:30 | NUR ---
Received pt AAOx3 in no acute distress noted.
[2018-10-12] MEDS: IPRATROPIUM BROMIDE 0.02% 2.5 ML NEB NEB SCH ×3 (07:32→19:30)
[2018-10-12] MEDS: ASPIRIN 325 MG TAB PO SCH ×2 (08:00→17:01)
[2018-10-12] MEDS: PANTOPRAZOLE SOD 40 MG TABEC PO SCH ×2 (09:00→17:01)
[2018-10-12] MEDS: GABAPENTIN 300 MG CAP PO SCH ×2 (09:00→17:01)
[2018-10-12] MEDS: FOLIC ACID 1 MG TAB PO SCH (09:00)
[2018-10-12] MEDS: LISINOPRIL 2.5 MG TAB PO SCH (09:00)
[2018-10-12] MEDS: ATORVASTATIN 20 MG TAB PO SCH (09:00)
[2018-10-12] MEDS: ATENOLOL 50 MG TAB PO SCH (09:00)
[2018-10-12] MEDS: HYDROCHLOROTHIAZIDE 25 MG TAB PO SCH (09:00)
[2018-10-12] MEDS: FUROSEMIDE 20 MG TAB PO SCH (09:00)
[2018-10-12] MEDS: INSULIN REGULAR, HUMAN 100 UNIT/1 ML 3ML VIAL SQ SCH ×4 (10:40→21:20)
--- NOTE | 2018-10-12 16:53 | Progress Note ---
DATE: 10/12/2018 Cardiology Progress Note SUBJECTIVE: No major events overnight. OBJECTIVE: VITAL SIGNS: Temperature afebrile, pulse 75, respiratory rate 20, blood pressure 110/59, and saturating 96% on nasal cannula. GENERAL: Elderly female, in no acute distress. CARDIOVASCULAR: Regular rate and rhythm. No murmurs, rubs, gallops. LUNGS: Clear to auscultation. ABDOMEN: Soft, nontender, and nondistended. NEURO AND PSYCH: Alert and oriented to person, place, and time. Normal affect. ASSESSMENT: 1. Non-ST elevation myocardial infarction. 2. Aspiration pneumonia. 3. Diabetes. 4. Hypertension. 5. Hyperlipidemia. 6. Atrial fibrillation, on Xarelto, currently in sinus rhythm. PLAN: Coronary angiogram earlier this admission showed no obstructive disease. Continue medical therapy. Remains in normal sinus rhythm. Continue Xarelto. Thank you for this consult. We will continue to follow. MD SHAYLA Do/DA /[id number]
--- NOTE | 2018-10-12 19:52 | NUR ---
RECEIVED PT IN RESTROOM .NO ACUTE DISTRESS NOTED.DENIES PAIN CALL LIGHT WITH IN REACH .CONTINUE TO MONITOR
[2018-10-12] MEDS: RIVAROXABAN 20 MG TABLET PO SCH (21:20)
[2018-10-12] MEDS: LEVOFLOXACIN 500MG/D5W 100ML IV SCH (22:48)
[2018-10-13] VITALS (8 sets, daily range): BP systolic 104–122; BP diastolic 54–63
[2018-10-13] MEDS: ALBUTEROL SULF 0.083% NEB SOLN 3 ML NEB NEB SCH ×5 (02:30→19:05)
[2018-10-13] MEDS: IPRATROPIUM BROMIDE 0.02% 2.5 ML NEB NEB SCH ×4 (02:30→19:00)
[2018-10-13] MEDS: METHYLPREDNISOLONE SOD SUCC 40 MG/ML VIAL 1ML IV SCH ×5 (05:49→23:15)
--- NOTE | 2018-10-13 06:15 | NUR ---
PT RESTED DURING THE NIGHT .CALL RANDLE WITH IN REACH DC TELE ,CONTINUE TO MONITOR
--- NOTE | 2018-10-13 07:08 | NUR ---
REPORT GIVEN TO THE ONCOMING NURSE.
[2018-10-13] MEDS: INSULIN REGULAR, HUMAN 100 UNIT/1 ML 3ML VIAL SQ SCH ×3 (07:30→17:00)
--- NOTE | 2018-10-13 07:30 | NUR ---
REC'D PT AAOX3, LAYING IN SEMI-GALICIA'S POSITION. PATIENT ON O2 VIA NC RUNNING AT 3L/MIN. NO S/S OF DISTRESS. SIDE RAILS UP X2, CALL RANDLE WITHIN REACH, AND BED IN LOWEST POSITION.
[2018-10-13] MEDS: FOLIC ACID 1 MG TAB PO SCH (08:37)
[2018-10-13] MEDS: ATORVASTATIN 20 MG TAB PO SCH (08:37)
[2018-10-13] MEDS: PANTOPRAZOLE SOD 40 MG TABEC PO SCH ×2 (08:37→17:25)
[2018-10-13] MEDS: ASPIRIN 325 MG TAB PO SCH ×2 (08:37→17:25)
[2018-10-13] MEDS: HYDROCHLOROTHIAZIDE 25 MG TAB PO SCH (08:37)
[2018-10-13] MEDS: GABAPENTIN 300 MG CAP PO SCH ×2 (08:37→17:25)
[2018-10-13] MEDS: LISINOPRIL 2.5 MG TAB PO SCH (08:37)
[2018-10-13] MEDS: ATENOLOL 50 MG TAB PO SCH (08:37)
[2018-10-13] MEDS: FUROSEMIDE 20 MG TAB PO SCH (09:10)
[2018-10-13] MEDS: CHLORASEPTIC SPRAY 177 ML BTL MM PRN ×3 (09:21→21:00)
--- NOTE | 2018-10-13 11:50 | NUR ---
PAGED DR. ROUSE REGARDING A BLOOD SUGAR OF [phone].
--- NOTE | 2018-10-13 12:00 | NUR ---
dr. navarrete called back regarding patient blood sugar. said to bump up sliding scale from the original sliding scale.
[2018-10-13] MEDS ORDERED: DEXTROSE 50% SYRINGE 50 ML IV PRN (12:45)
--- NOTE | 2018-10-13 18:12 | NUR ---
PATIENT IS LAYING DOWN ON HIGH-GALICIA'S POSITION WITH O2 RUNNING AT 3 L/MIN. NO S/S OF DISTRESS. SIDE RAILS UPX2, CALL RANDLE WITHIN REACH, AND BED IN LOWEST POSITION.
[2018-10-13] MEDS: RIVAROXABAN 20 MG TABLET PO SCH (21:00)
--- NOTE | 2018-10-13 21:23 | Progress Note ---
DATE: 10/13/2018 Cardiology Progress Note SUBJECTIVE: The patient denies chest pain, but does endorse dyspnea on going to the bathroom. OBJECTIVE: VITAL SIGNS: Temperature 96.7 degrees, pulse 89, respiratory rate 20, blood pressure 110/57, oxygen saturation 96% on 2 L oxygen. GENERAL: Elderly woman, in no acute distress. Awake and alert. LUNGS: Clear to auscultation bilaterally. No wheeze or crackles. CARDIOVASCULAR: Normal rate. Regular rhythm. No murmur. Normal S1, S2. ABDOMEN: Soft, nontender. EXTREMITIES: No edema. CARDIAC MEDICATIONS: Lisinopril 2.5 mg p.o. daily, hydrochlorothiazide 25 mg p.o. daily, atorvastatin 20 mg p.o. at bedtime, atenolol 50 mg p.o. daily, aspirin 325 mg p.o. b.i.d., rivaroxaban 20 mg p.o. at bedtime. LABORATORY DATA: None today. IMPRESSION: 1. Ekg-CS-puczxdrxn myocardial infarction. 2. Aspiration pneumonia. 3. Diabetes. 4. Hypertension. 5. Hyperlipidemia. 6. Atrial fibrillation, on Xarelto. RECOMMENDATIONS: Coronary angiogram performed earlier this admission showed no obstructive disease. Continue medical therapy. Continue Xarelto for CVA prophylaxis. Blood pressure is controlled. Antibiotics per primary. Thank you for this consult. We will continue to follow. Denise Nguyễn MD ABS/MODL /[id number] MTDD
[2018-10-13] MEDS: LEVOFLOXACIN 500MG/D5W 100ML IV SCH (23:15)
[2018-10-13] MEDS ORDERED: INSULIN REGULAR, HUMAN 100 UNIT/1 ML 3ML VIAL SQ ONE (23:45)
[2018-10-14] VITALS (8 sets, daily range): BP systolic 103–143; BP diastolic 50–77
[2018-10-14] MEDS: CHLORASEPTIC SPRAY 177 ML BTL MM PRN ×3 (01:07→21:44)
[2018-10-14] MEDS: ALBUTEROL SULF 0.083% NEB SOLN 3 ML NEB NEB SCH ×7 (03:06→23:40)
[2018-10-14] MEDS: METHYLPREDNISOLONE SOD SUCC 40 MG/ML VIAL 1ML IV SCH ×3 (06:30→18:00)
[2018-10-14] MEDS: IPRATROPIUM BROMIDE 0.02% 2.5 ML NEB NEB SCH ×5 (06:45→20:10)
[2018-10-14] MEDS: INSULIN REGULAR, HUMAN 100 UNIT/1 ML 3ML VIAL SQ SCH ×4 (07:30→21:00)
--- NOTE | 2018-10-14 07:30 | NUR ---
REC'D PATIENT AAOX3, PATIENT IN THE RESTROOM. ASSISTED PATIENT BACK INTO BED. PATIENT PLACED ON OXYGEN VIA NC AT 3L/MIN. NO S/S OF DISTRESS. BED IN LOWEST POSITION, CALL RANDLE WITHIN REACH, AND SIDE RAILS UP X2.
[2018-10-14] MEDS: HYDROCHLOROTHIAZIDE 25 MG TAB PO SCH (09:09)
[2018-10-14] MEDS: ASPIRIN 325 MG TAB PO SCH ×2 (09:09→16:36)
[2018-10-14] MEDS: FOLIC ACID 1 MG TAB PO SCH (09:09)
[2018-10-14] MEDS: FUROSEMIDE 20 MG TAB PO SCH (09:10)
[2018-10-14] MEDS: GABAPENTIN 300 MG CAP PO SCH ×2 (09:10→16:36)
[2018-10-14] MEDS: ATORVASTATIN 20 MG TAB PO SCH (09:10)
[2018-10-14] MEDS: PANTOPRAZOLE SOD 40 MG TABEC PO SCH ×2 (09:10→16:36)
[2018-10-14] MEDS: LISINOPRIL 2.5 MG TAB PO SCH (09:10)
[2018-10-14] MEDS: ATENOLOL 50 MG TAB PO SCH (09:12)
[2018-10-14] MEDS: GUAIFENESIN/DEXTROMETHORPHAN LIQD 5 ML UDC PO PRN ×2 (10:58→18:00)
--- NOTE | 2018-10-14 17:52 | NUR ---
PATIENT IS IN BED ON HIGH-FOWLERS POSITION. GAVE PATIENT COUGH MEDICINE. O2 VIA NC AT 3/MIN. NO S/S OF DISTRESS. BED IN LOWEST POSITION, SIDE RAILS UP X2, AND CALL RANDLE WITHIN REACH.
--- NOTE | 2018-10-14 19:14 | NUR ---
Patient received sitting up in bed. Family at bedside. AAO x 4. Patient had no complaints of pain. Respirations even and non-labored. Fall precautions implemented. Patient instructed to call for assistance when needed. Call light within reach.
--- NOTE | 2018-10-14 20:17 | Progress Note ---
DATE: 10/14/2018 Cardiology Progress Note SUBJECTIVE: The patient denies chest pain or shortness of breath. OBJECTIVE: VITAL SIGNS: Temperature 97.5 degrees, pulse 105, respiratory rate 20, blood pressure 120/56, and oxygen saturation 95% on 2 liters nasal cannula. GENERAL: Awake, alert, and in no acute distress. LUNGS: Clear to auscultation bilaterally. No wheeze or crackles. CARDIOVASCULAR: Normal rate. Regular rhythm. No murmur. Normal S1 and S2. ABDOMEN: Soft, nontender. EXTREMITIES: No edema. CARDIAC MEDICATIONS: Aspirin 325 mg p.o. b.i.d., atenolol 50 mg p.o. daily, lisinopril 2.5 mg p.o. daily, furosemide 20 mg p.o. daily, atorvastatin 20 mg p.o. daily, hydrochlorothiazide 25 mg p.o. daily, rivaroxaban 20 mg p.o. at bedtime. LABORATORY DATA: None today. IMPRESSION: 1. Non-ST elevation myocardial infarction. 2. Aspiration pneumonia. 3. Diabetes mellitus. 4. Hypertension. 5. Hyperlipidemia. 6. Atrial fibrillation, on Xarelto. RECOMMENDATIONS: Coronary angiogram during admission showed no obstructive disease. Continue medical therapy. Continue Xarelto for CVA prophylaxis. The patient's blood pressure is controlled. Antibiotics per primary service. Thank you for this consult. We will continue to follow. Denise Nguyễn MD ABS/MODL /[id number]
[2018-10-14] MEDS ORDERED: SODIUM CHLORIDE 0.9% 250ML 250 ML ONE (21:34)
[2018-10-14] MEDS: RIVAROXABAN 20 MG TABLET PO SCH (21:40)
[2018-10-14] MEDS: LEVOFLOXACIN 500MG/D5W 100ML IV SCH (22:48)
[2018-10-15] VITALS (8 sets, daily range): BP systolic 115–137; BP diastolic 58–68
[2018-10-15] MEDS: METHYLPREDNISOLONE SOD SUCC 40 MG/ML VIAL 1ML IV SCH ×4 (01:05→18:08)
[2018-10-15] MEDS: IPRATROPIUM BROMIDE 0.02% 2.5 ML NEB NEB SCH ×5 (03:00→23:41)
[2018-10-15] MEDS: ALBUTEROL SULF 0.083% NEB SOLN 3 ML NEB NEB SCH ×6 (03:00→23:41)
--- NOTE | 2018-10-15 06:56 | NUR ---
RECEIVED PATIENT RESTING IN BED. NO ACUTE DISTRESS NOTED. DENIES PAIN OR DISCOMFORT. CALL LIGHT WITHIN REACH. BED IN THE LOWEST POSITION.
[2018-10-15] MEDS: INSULIN REGULAR, HUMAN 100 UNIT/1 ML 3ML VIAL SQ SCH ×4 (08:17→21:00)
[2018-10-15] MEDS: FUROSEMIDE 20 MG TAB PO SCH (08:37)
[2018-10-15] MEDS: ATORVASTATIN 20 MG TAB PO SCH (08:37)
[2018-10-15] MEDS: ASPIRIN 325 MG TAB PO SCH ×2 (08:37→17:00)
[2018-10-15] MEDS: GABAPENTIN 300 MG CAP PO SCH ×2 (08:37→17:00)
[2018-10-15] MEDS: HYDROCHLOROTHIAZIDE 25 MG TAB PO SCH (08:37)
[2018-10-15] MEDS: FOLIC ACID 1 MG TAB PO SCH (08:37)
[2018-10-15] MEDS: ATENOLOL 50 MG TAB PO SCH (08:38)
[2018-10-15] MEDS: PANTOPRAZOLE SOD 40 MG TABEC PO SCH ×2 (08:38→17:00)
[2018-10-15] MEDS: LISINOPRIL 2.5 MG TAB PO SCH (08:38)
[2018-10-15] MEDS: GUAIFENESIN/DEXTROMETHORPHAN LIQD 5 ML UDC PO PRN (08:39)
[2018-10-15] MEDS: CHLORASEPTIC SPRAY 177 ML BTL MM PRN (08:39)
--- NOTE | 2018-10-15 13:35 | NUR ---
PER SPEECH THERAPY MBS RESULTS SHOW THAT PATIENT ASPIRATES/PENETRATES ALL TEXTURES, SHE RECOMMENDS PATIENT TO STAY NPO WITH ICE CHIPS, PEG TUBE FOR SHORT TERM, AND NMES THERAPY. ALSO SHE IS ASKING FOR ENT CONSULT. NOTIFIED DR. ROUSE, NO NEW ORDERS AT THIS TIME. PER MD HE WILL SPEAK TO PATIENT IN THE MORNING.
--- NOTE | 2018-10-15 14:39 | NUR ---
ASKED NASIM MARSHALL IF HE WANTS TO KEEP PATIENT NPO RECOMMENDED BY . NAFISA FOLEY WAIT UNTIL HE SPEAKS TO PATIENT TO CHANGE DIET.
--- NOTE | 2018-10-15 18:34 | NUR ---
PER DR. ROUSE OK TO KEEP PATIENT NPO UNTIL HE SEES HER IN THE MORNING AND DISCUSS PLAN OF CARE.
--- NOTE | 2018-10-15 19:25 | NUR ---
REPORT GIVEN TO ONCOMING NURSE, WALKING ROUNDS DONE. PATIENT IS RESTING IN BED. RESPIRATIONS EVEN AND UNLABORED, NO ACUTE DISTRESS NOTED. FAMILY MEMBERS AT BEDSIDE. CALL LIGHT WITHIN REACH. BED IN THE LOWEST POSITION.
--- NOTE | 2018-10-15 19:55 | NUR ---
PT IS RESTING IN BED WITH FAMILY AT BEDSIDE. RESPIRATION IS EVEN AND UNLABORED, NO DISTRESS NOTED. BED IN THE LOWEST POSITION, LOCKED, AND CALL LIGHT WITHIN REACH. WILL CONTINUE TO MONITOR.
[2018-10-15] MEDS: RIVAROXABAN 20 MG TABLET PO SCH (20:58)
--- NOTE | 2018-10-15 21:47 | Progress Note ---
DATE: 10/15/2018 SUBJECTIVE: The patient denies chest pain or shortness of breath. OBJECTIVE: VITAL SIGNS: Temperature 97.6 degrees, pulse 81, respiratory rate 20, blood pressure 121/59, and oxygen saturation 97% on 2 L nasal cannula. GENERAL: Elderly woman in no acute distress, awake, and alert. LUNGS: Clear to auscultation bilaterally. No wheeze or crackles. CARDIOVASCULAR: Normal rate. Regular rhythm. No murmur. Normal S1 and S2. ABDOMEN: Soft and nontender. EXTREMITIES: 1+ pitting edema. CARDIAC MEDICATIONS: Lisinopril 2.5 mg p.o. daily, atenolol 50 mg p.o. daily, hydrochlorothiazide 25 mg p.o. daily, furosemide 20 mg p.o. daily, atorvastatin 20 mg p.o. daily, aspirin 325 mg p.o. b.i.d., and rivaroxaban 20 mg p.o. at bedtime. LABORATORY DATA: None today. IMPRESSION: 1. Non-ST elevation myocardial infarction. 2. Aspiration pneumonia. 3. Diabetes mellitus. 4. Hypertension with hyperlipidemia. 5. Atrial fibrillation, on Xarelto. RECOMMENDATIONS: Coronary angiogram during admission showed no obstructive disease. Continue medical therapy. Continue Xarelto for CVA prophylaxis. The patient's blood pressure is controlled. Antibiotics per primary service. Thank you for this consult. We will continue to follow. Denise Nguyễn MD ABS/MODL /[id number]
[2018-10-15] MEDS ORDERED: LEVOFLOXACIN 500 MG TAB PO SCH (22:00)
[2018-10-16] VITALS (7 sets, daily range): BP systolic 110–139; BP diastolic 52–70
[2018-10-16] MEDS: METHYLPREDNISOLONE SOD SUCC 40 MG/ML VIAL 1ML IV SCH (00:45)
[2018-10-16] MEDS: LEVOFLOXACIN 500MG/D5W 100ML IV SCH ×2 (00:45→02:00)
[2018-10-16] MEDS: ALBUTEROL SULF 0.083% NEB SOLN 3 ML NEB NEB SCH ×6 (03:00→23:35)
[2018-10-16 06:31] LABS: BASOPHILS # (AUTO) 0.1 (0.0-0.1); BASOPHILS % 0.6 % (0.0-1.0); HEMATOCRIT 33.1 % (34.2-44.1); HEMOGLOBIN 10.9 g/dL (12.0-16.0); LYMPHOCYTES # (AUTO) 0.7 (1.0-3.2); LYMPHOCYTES % 8.1 % (18.0-39.1); MEAN CORPUSCULAR HEMOGLOBIN 31.8 pg (28-32); MEAN CORPUSCULAR HGB CONC 32.9 g/dL (31-35); MEAN CORPUSCULAR VOLUME 96.5 fL (81-99); MONOCYTES # (AUTO) 0.6 (0.2-0.8); MONOCYTES % 7.4 % (4.4-11.3); NEUTROPHILS # (AUTO) 6.7 (2.1-6.9); NEUTROPHILS % 78.5 % (38.7-80.0); PLATELET COUNT 281 x10e3/uL (140-360); RED BLOOD COUNT 3.43 x10e6/uL (3.6-5.1)
[2018-10-16 06:49] LABS: ALBUMIN/GLOBULIN RATIO 1.1 (0.8-2.0); ANION GAP 14.4 mmol/L (8-16); CALCIUM 8.9 mg/dL (8.4-10.2); CREATININE, SERUM 0.99 mg/dL (0.57-1.11)
[2018-10-16 06:54] LABS: POTASSIUM 2.4 mmol/L (3.5-5.1)
--- NOTE | 2018-10-16 06:56 | NUR ---
RECEIVED PATIENT RESTING IN BED. NO ACUTE DISTRESS NOTED. DENIES PAIN OR DISCOMFORT. CALL LIGHT WITHIN REACH. BED IN THE LOWEST POSITION.
[2018-10-16] MEDS: IPRATROPIUM BROMIDE 0.02% 2.5 ML NEB NEB SCH ×3 (07:00→19:30)
[2018-10-16] MEDS: INSULIN REGULAR, HUMAN 100 UNIT/1 ML 3ML VIAL SQ SCH ×4 (07:30→21:00)
--- NOTE | 2018-10-16 07:50 | NUR ---
PAGED DR. ROUSE FOR PATIENT'S POTASSIUM OF 2.4, NO ANSWER, LVM.
[2018-10-16] MEDS: ASPIRIN 325 MG TAB PO SCH ×2 (08:00→17:00)
[2018-10-16] MEDS ORDERED: POTASSIUM CHLORIDE 20MEQ/100ML 300 ML IV ONE (08:15)
[2018-10-16] MEDS: FUROSEMIDE 20 MG TAB PO SCH (08:21)
[2018-10-16] MEDS: HYDROCHLOROTHIAZIDE 25 MG TAB PO SCH (08:21)
[2018-10-16] MEDS: ATORVASTATIN 20 MG TAB PO SCH (08:21)
[2018-10-16] MEDS: FOLIC ACID 1 MG TAB PO SCH (08:21)
[2018-10-16] MEDS: PANTOPRAZOLE SOD 40 MG TABEC PO SCH ×2 (08:22→17:00)
[2018-10-16] MEDS: LISINOPRIL 2.5 MG TAB PO SCH (08:22)
[2018-10-16] MEDS: GABAPENTIN 300 MG CAP PO SCH ×2 (08:22→17:00)
[2018-10-16] MEDS: ATENOLOL 50 MG TAB PO SCH (08:22)
[2018-10-16] MEDS ORDERED: SODIUM CHLORIDE 0.9% 500ML 500 ML ONE (08:39)
--- NOTE | 2018-10-16 10:56 | Diagnostic Imaging Report ---
PROCEDURE: X-RAY MODIFIED BARIUM SWALLOW COMPARISON: None. INDICATION: Aspiration Radiation Details: Fluoroscopy time: 1 minute, 31 seconds Cumulative dose area product: 153.3 cGycm2 Cumulative air kerma: 4.29 mGy DISCUSSION: Fluoroscopic examination was performed in conjunction with speech pathology during swallowing a variety of thin and thick liquid consistencies. Limited images which are degraded by motion. Provided images demonstrate laryngeal penetration and trace aspiration. CONCLUSION: Modified barium swallow demonstrating penetration and aspiration. Please refer to the speech pathology report for further details. Signed by: Dr. Magnolia Adrian MD on 10/16/2018 10:53 AM
--- NOTE | 2018-10-16 11:10 | NUR ---
DR. BURNS ROUNDING ON PATIENT, NOTIFIED HER THAT PATIENT IS NPO DUE TO FAILED MBS AND ASPIRATING/PENETRATING ALL TEXTURES. NO NEW ORDERS RECEIVED.
--- NOTE | 2018-10-16 13:15 | Progress Note ---
DATE: 10/16/2018 Cardiology Progress Note SUBJECTIVE: The patient denies chest pain or shortness of breath. She failed her barium swallow yesterday and is n.p.o., planned for PER by GI. OBJECTIVE: VITAL SIGNS: Temperature 97.5 degrees, pulse 63, respiratory rate 20, blood pressure 122/59, oxygen saturation 99% on room air. GENERAL: Awake, alert, in no acute distress. LUNGS: Clear to auscultation bilaterally. No wheeze or crackles. CARDIOVASCULAR: Normal rate. Regular rhythm. No murmur. Normal S1, S2. ABDOMEN: Soft, nontender. EXTREMITIES: 1+ pitting edema. CARDIAC MEDICATIONS: Lisinopril 2.5 mg p.o. daily, hydrochlorothiazide 25 mg p.o. daily, furosemide 20 mg p.o. daily, atorvastatin 20 mg p.o. daily, atenolol 50 mg p.o. daily, and aspirin 325 mg p.o. b.i.d.. LABORATORY DATA: WBC 8.5, hemoglobin 10.9, hematocrit 33.1, platelets 281. Sodium 138, potassium 2.4, chloride 93, CO2 of 33, BUN 33, creatinine 0.99. IMPRESSION: 1. Non-ST elevation myocardial infarction. 2. Aspiration pneumonia. 3. Diabetes mellitus. 4. Hypertension. 5. Hyperlipidemia. 6. Atrial fibrillation, on Xarelto. RECOMMENDATIONS: Coronary angiogram during admission showed no obstructive disease. Continue medical therapy. The patient is on Xarelto for CVA prophylaxis. This can be held for procedure as the patient is n.p.o. The patient's blood pressure is controlled. Resume current cardiac medications once PEG has been placed. Antibiotics per primary service. Thank you for this consult. We will continue to follow. Denise Nguyễn MD ABS/MODL /[id number]
--- NOTE | 2018-10-16 15:56 | NUR ---
Nutrition Intervention Note RD Recommendation(s) for Physician: -When PEG is placed, rec to initiate continuous TF with Glucerna 1.2 @10mL/hr, advance as tolerated to goal rate of 50mL/hr (1440kcal, 72g protein, 966mL water) -Water flushes of 75mL water q 4hr; additional water per MD discretion -Check labs, GI tolerance, weight daily Plan of Care: RD following, monitoring for tolerance and adequacy, TF rec Nutrition reason for involvement: Follow up, New PEG RD Assessment (10/16) Pt was discussed during AM rounds. MBS on 10/15 demonstrating penetration and aspiration. Plan for PEG placement by GI. Followed by BASKET PERSON for NMES. LBM- 10/15. No GI complains reported. Will communicate TF rec with RN. Will continue to monitor and follow. (10/10) Chart reviewed. Labs and meds reviewed. 72yo F, who was admitted for fever and chills after procedure for vocal cord paralysis. Visited pt in the room. 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 No complains of nausea or vomiting. LBM 10/09. Pt complained of hunger. Currently NPO. Will continue to monitor and follow. Principal Problems/Diagnoses: PNA, elevated troponin PMH: hypertension, diabetes, anemia, and hyperlipidemia GI: abdomen soft, non-tender, round, LBM 10/16 Skin: no pressure wound noted Labs: (10/16) K 2.4 L, BUN 33 H, Glucose 170 200 H, Mg 2.2 H Meds: KCl, levaquin Ht: 60in Wt: 200lb BMI: 39.1kg/m2 IBW: 100lb Malnutrition Evaluation (10/10/2018) The patient does not meet criteria for a specified degree of malnutrition at this time. Will re-evaluate at follow-up as appropriate. Nutrition Prescription (Diet Order): NPO Estimated Nutritional Needs: Calories: 1150 1380kcal (25-30kcal/kg/d) Weight used: IBW Protein: 69 115g (1.5-2.5g/kg/d) Weight used: IBW Diet Adequacy: Not meeting calorie needs, Not meeting protein needs Diet Education Needs Assessment: Diet education not indicated. 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 Goal: Patient will meet 75-100% of estimated needs by follow up Progress: N/A Interventions: Composition, Rate, Route Monitoring/Evaluation: Total energy intake, Total protein intake, Formula/Solution, Weight change, Labs, Gastric tolerance Signed: Irene Torrez MS, RD, LD
--- NOTE | 2018-10-16 19:10 | NUR ---
Patient visited in room during nursing rounds. Patient alert and oriented x3. No distress or discomfort noted. Pt NPO and aware scheduled for EGD and PEG placement tomorrow but refuses to sign consent at this time not until she speaks with Dr. Samuels. Pt on aspiration precaution. Call mcgraw within reach. Will monitor closely.
--- NOTE | 2018-10-16 19:17 | NUR ---
REPORT GIVEN TO ONCOMING NURSE, WALKING ROUNDS DONE. PATIENT IS RESTING IN BED. NO ACUTE DISTRESS NOTED. CALL LIGHT WITHIN REACH. BED IN THE LOWEST POSITION.
--- NOTE | 2018-10-16 21:30 | NUR ---
Dr. Samuels arrived and visited pt in room. explained procedure to be done tomorrow (10/17/18). Patient replied she understood procedures and ready to sign consent form.
[2018-10-17] VITALS (7 sets, daily range): BP systolic 111–143; BP diastolic 57–68
[2018-10-17] MEDS ORDERED: SODIUM CHLORIDE 0.9% 250ML 250 ML ONE ×2 (01:52→11:57)
[2018-10-17] MEDS: IPRATROPIUM BROMIDE 0.02% 2.5 ML NEB NEB SCH ×4 (02:45→19:30)
[2018-10-17] MEDS: ALBUTEROL SULF 0.083% NEB SOLN 3 ML NEB NEB SCH ×6 (02:45→23:00)
--- NOTE | 2018-10-17 05:40 | NUR ---
Patient just finished taking a bath and started vomiting on the toilet. Vomitus was clear yellow liquid. Dr. Collier aware of event and called for nurse (Ovidio) to assist patient.
--- NOTE | 2018-10-17 05:42 | NUR ---
Patient assisted back in bed. Patient stated she thinks she's done vomiting at this time. Barf bags at bedside for prn use. Patient placed back on 2L NC for comfort. Patient sitting at side of bed talking with Dr. Collier in person. Dr. Collier gave verbal order for Zofran 4mg IV Q4hr prn. Will continue to monitor pt.
[2018-10-17] MEDS ORDERED: ONDANSETRON HCL INJ 2MG/ML 2ML 2 MG/ML VIAL IV PRN (06:00)
[2018-10-17 06:59] LABS: BASOPHILS % 0.5 % (0.0-1.0); EOSINOPHILS % 0.2 % (0.0-6.0); HEMATOCRIT 34.8 % (34.2-44.1); HEMOGLOBIN 11.1 g/dL (12.0-16.0); LYMPHOCYTES # (AUTO) 0.9 (1.0-3.2); LYMPHOCYTES % 12.9 % (18.0-39.1); MEAN CORPUSCULAR HEMOGLOBIN 32.2 pg (28-32); MEAN CORPUSCULAR HGB CONC 31.9 g/dL (31-35); MEAN CORPUSCULAR VOLUME 100.9 fL (81-99); MONOCYTES # (AUTO) 0.9 (0.2-0.8); MONOCYTES % 13.5 % (4.4-11.3); NEUTROPHILS # (AUTO) 4.5 (2.1-6.9); NEUTROPHILS % 67.7 % (38.7-80.0); PLATELET COUNT 242 x10e3/uL (140-360); RED BLOOD COUNT 3.45 x10e6/uL (3.6-5.1); RED CELL DISTRIBUTION WIDTH 15.4 % (11.7-14.4)
[2018-10-17 07:11] LABS: INR 1.11; PROTHROMBIN TIME 14.8 seconds (11.9-14.5)
[2018-10-17 07:21] LABS: ALANINE AMINOTRANSFERASE 26 IU/L (0-55); ALBUMIN/GLOBULIN RATIO 1.1 (0.8-2.0); ALKALINE PHOSPHATASE 93 IU/L (40-150); ANION GAP 11.7 mmol/L (8-16); BLOOD UREA NITROGEN 29 mg/dL (7-26); BUN/CREATININE RATIO 34 (6-25); CALCIUM 8.6 mg/dL (8.4-10.2); CARBON DIOXIDE 31 mmol/L (22-29); CHLORIDE 99 mmol/L (98-107); CREATININE, SERUM 0.86 mg/dL (0.57-1.11); EST GLOMERULAR FILTRATION RATE > 60 ML/MIN (60-); GLUCOSE 155 mg/dL (74-118); SODIUM 139 mmol/L (136-145)
[2018-10-17 07:22] LABS: POTASSIUM 2.7 mmol/L (3.5-5.1)
--- NOTE | 2018-10-17 07:25 | NUR ---
LAB REPORTED A CRITICAL LAB VALUE OF POTASSIUM OF 2.7. PAGED DR. ROUSE.
[2018-10-17] MEDS: INSULIN REGULAR, HUMAN 100 UNIT/1 ML 3ML VIAL SQ SCH ×4 (07:30→21:00)
--- NOTE | 2018-10-17 07:30 | NUR ---
REC'D PT AAOX3, PATIENT IS NPO FOR PROCEDURE, CONSENT SIGNED. PATIENT REFUSED TO WEAR NC AND IS RUNNING AT 95% ROOM AIR. BED IN LOWEST POSITION, SIDE RAILS UP X2, AND CALL RANDLE WITHIN REACH.
--- NOTE | 2018-10-17 07:55 | NUR ---
DR. ROUSE PAGED AGAIN REGARDING POTASSIUM OF 2.7.
[2018-10-17] MEDS: ASPIRIN 325 MG TAB PO SCH ×2 (08:00→16:14)
--- NOTE | 2018-10-17 08:10 | NUR ---
DR. ROUSE ORDERED 60 mEq OF POTASSIUM VIA IV OVER 6 HOURS. OR NOTIFIED ABOUT PATIENTS POTASSIUM LEVEL. ANESTHESIOLOGIST NOTIFIED BY OR STAFF.
[2018-10-17] MEDS: PANTOPRAZOLE SOD 40 MG TABEC PO SCH (09:00)
[2018-10-17] MEDS: FUROSEMIDE 20 MG TAB PO SCH (09:00)
[2018-10-17] MEDS: GABAPENTIN 300 MG CAP PO SCH ×2 (09:00→16:14)
[2018-10-17] MEDS: FOLIC ACID 1 MG TAB PO SCH (09:00)
[2018-10-17] MEDS ORDERED: POTASSIUM CHLORIDE 20MEQ/100ML 100 ML IV ONE ×2 (09:00→17:45)
[2018-10-17] MEDS: ATORVASTATIN 20 MG TAB PO SCH (09:00)
[2018-10-17] MEDS: HYDROCHLOROTHIAZIDE 25 MG TAB PO SCH (09:00)
[2018-10-17] MEDS: LISINOPRIL 2.5 MG TAB PO SCH (09:00)
[2018-10-17] MEDS: ATENOLOL 50 MG TAB PO SCH (09:00)
[2018-10-17] MEDS: ONDANSETRON HCL INJ 2MG/ML 2ML 2 MG/ML VIAL IV PRN (10:02)
[2018-10-17] MEDS: POTASSIUM CHLORIDE 20MEQ/100ML 100 ML IV SCH ×3 (10:11→17:30)
--- NOTE | 2018-10-17 11:00 | NUR ---
Notified Dr. Collier about patient's temperature of 100.[address] Collier ordered Tylenol IV. Orders carried out.
--- NOTE | 2018-10-17 12:00 | NUR ---
FURNACE CARETAKER reported temperature of 105.0. Re-checked temperature and it was 100.8. Notified Dr. Collier and he ordered acetaminophen IV. Orders carried out.
[2018-10-17] MEDS: ACETAMINOPHEN 1000 MG/100 ML IV PRN (13:59)
[2018-10-17] MEDS ORDERED: SODIUM CHLORIDE 0.9% 500ML 500 ML ONE ×2 (14:32→20:56)
[2018-10-17] MEDS: PANTOPRAZOLE 40 MG 10ML VIAL IV SCH (16:14)
--- NOTE | 2018-10-17 18:49 | NUR ---
PATIENT LAYING IN HIGH-FOWLERS POSITION. LAST POTASSIUM BAG OF POTASSIUM RUNNING IV. PATIENT TOLERATING POTASSIUM WELL. CALLED OR AND SURGERY IS RE-SCHEDULED FOR TOMORROW DUE TO LOW POTASSIUM LEVEL. PATIENT REFUSED TO WEAR NASAL CANNULA. PATIENT STILL NPO. PATIENT'S TEMPERATURE WENT DOWN TO 99.3 AFTER ADMINISTRATION OF TYLENOL IV. SIDE RAILS UP X2, CALL RANDLE WITHIN REACH, AND BED IN LOWEST POSITION.
--- NOTE | 2018-10-17 19:20 | NUR ---
Patient visited in room during nursing rounds. Patient alert and oriented x3. Receiving last bag of KCL IV (total of 60meq). Pt NPO and aware scheduled for EGD and PEG placement tomorrow. Patient's family at bedside visiting. Pt on aspiration precaution. Call mcgraw within reach. Will monitor closely.
--- NOTE | 2018-10-17 20:00 | NUR ---
Pt complained IV on left forearm was burning too much. IV site was assessed and appeared to be infiltrated. IV KCL stopped and IV (20g) was taken out. Site covered with gauze. Explained to patient the need for new IV to continue receiving IV KCL. Pt aware will also be on IVF (D5 1/2NS with 20meqKCL at 75ml/hr).
--- NOTE | 2018-10-17 20:21 | Progress Note ---
DATE: 10/17/2018 Cardiology Progress Note SUBJECTIVE: The patient denies chest pain or shortness of breath. OBJECTIVE: VITAL SIGNS: Temperature 100.5 degrees, pulse 79, respiratory rate 20, blood pressure 143/67, and oxygen saturation 94% on 2 L nasal cannula. GENERAL: Elderly woman, no acute distress. Awake and alert. LUNGS: Clear to auscultation bilaterally. No wheeze or crackles. CARDIOVASCULAR: Normal rate. Regular rhythm. No murmur. Normal S1 and S2. ABDOMEN: Soft and nontender. EXTREMITIES: 1+ pitting edema. CARDIAC MEDICATIONS: 1. Lisinopril 2.5 mg p.o. daily. 2. Hydrochlorothiazide 25 mg p.o. daily. 3. Furosemide 20 mg p.o. daily. 4. Atorvastatin 20 mg p.o. daily. 5. Atenolol 50 mg p.o. daily. 6. Aspirin 325 mg p.o. b.i.d. LABORATORY DATA: WBC 6.57, hemoglobin 11.1, hematocrit 34.8, and platelets 242. Sodium 139, potassium 2.7, chloride 99, CO2 of 31, BUN 29, and creatinine 0.86. IMPRESSION: 1. Non-ST elevation myocardial infarction. 2. Aspiration pneumonia. 3. Diabetes mellitus. 4. Hypertension. 5. Hyperlipidemia. 6. Atrial fibrillation, on Xarelto. RECOMMENDATIONS: Coronary angiogram during admission showed no obstructive disease. Continue medical therapy. The patient is on Xarelto for CVA prophylaxis, currently on hold as the patient is n.p.o. PEG is pending. Please resume cardiac medications once cleared for use. Blood pressure is acceptable for age. Continue antibiotics per primary service. Thank you for this consult. We will continue to follow. Denise Nguyễn MD ABS/MODL /[id number]
--- NOTE | 2018-10-17 20:45 | NUR ---
After 3 attempts, new IV (20 gauge) placed on left forearm. Pt refused to run remaining potassium from last bag. Told patient will ask Dr. Wilkinson (covering for Dr. Collier).
--- NOTE | 2018-10-17 21:08 | NUR ---
Spoke with Dr. Wilkinson (over phone) and informed pt prefers not to receive remainder of IV potassium and that IVF be started instead. aware and cancelled PM lab (CMP) and stated ok not to finish last bag of IV potassium.
[2018-10-17] MEDS: D5.45%NS/KCL 20MEQ 1,000 ML IV SCH (22:30)
[2018-10-18] VITALS (9 sets, daily range): BP systolic 109–176; BP diastolic 54–95
[2018-10-18] MEDS: ALBUTEROL SULF 0.083% NEB SOLN 3 ML NEB NEB SCH ×6 (00:10→19:48)
[2018-10-18] MEDS: ACETAMINOPHEN 1000 MG/100 ML IV PRN ×2 (00:10→17:59)
[2018-10-18] MEDS: ONDANSETRON HCL INJ 2MG/ML 2ML 2 MG/ML VIAL IV PRN (00:16)
[2018-10-18] MEDS: LEVOFLOXACIN 500MG/D5W 100ML IV SCH (01:56)
[2018-10-18] MEDS: IPRATROPIUM BROMIDE 0.02% 2.5 ML NEB NEB SCH ×4 (02:00→19:48)
[2018-10-18 06:31] LABS: ANION GAP 9.3 mmol/L (8-16); BLOOD UREA NITROGEN 16 mg/dL (7-26); BUN/CREATININE RATIO 20 (6-25); CALCIUM 7.9 mg/dL (8.4-10.2); CARBON DIOXIDE 29 mmol/L (22-29); CHLORIDE 105 mmol/L (98-107); CREATININE, SERUM 0.79 mg/dL (0.57-1.11); EST GLOMERULAR FILTRATION RATE > 60 ML/MIN (60-); GLUCOSE 177 mg/dL (74-118); POTASSIUM 3.3 mmol/L (3.5-5.1); SODIUM 140 mmol/L (136-145)
--- NOTE | 2018-10-18 07:25 | NUR ---
NOTIFIED OR ABOUT PATIENT'S POTASSIUM LEVEL BEING 3.3.
[2018-10-18] MEDS: INSULIN REGULAR, HUMAN 100 UNIT/1 ML 3ML VIAL SQ SCH ×4 (07:30→20:52)
--- NOTE | 2018-10-18 07:30 | NUR ---
REC'D PATIENT AAOX3, PATIENT ON ROOM AIR, REFUSED TO WEAR NASAL CANNULA. FLUIDS RUNNING. SIDE RAILS UP X2, CALL RANDLE WITHIN REACH, AND BED IN LOWEST POSITION.
--- NOTE | 2018-10-18 07:39 | Progress Note ---
DATE: 10/18/2018 SUBJECTIVE: A 72-year-old female with a history of pneumonia aspiration, was supposed to have a PEG tube yesterday, but the procedure was held secondary to hyperkalemia. Hyperkalemia has been corrected today. The patient is scheduled for PEG tube placement today. The patient also has history of diabetes, hypertension, and hyperlipidemia. MEDICATIONS: She is on at this time are albuterol and Atrovent treatment, Tylenol, atorvastatin, furosemide, guaifenesin, hydrochlorothiazide, insulin, Levaquin, lisinopril, pantoprazole, and potassium chloride. OBJECTIVE: VITAL SIGNS: Temperature is 98.0, pulse is 78, blood pressure is 125/56, and 94% on 2 L of oxygen. HEENT: Normocephalic, atraumatic. Nasal cannula with O2. CVS: S1, S2 normal. Regular rate and rhythm. ABDOMEN: Nontender and nondistended. EXTREMITIES: No clubbing, no cyanosis, or no edema. LABORATORY VALUES: Today's white count is 6.57, platelet count is 242, no left shift present, hemoglobin is 11.1, and hematocrit of 34.8. Sodium 140, potassium is 3.3, BUN of 16, and creatinine 0.79. GFR of above 60. Coags, PT/INR is normal. Microbiology, no growth in blood culture or urine culture. ASSESSMENT: 1. Aspiration pneumonia. 2. Yar-QV-fkjlidphp myocardial infarction. 3. Diabetes. 4. Hypertension. 5. Hyperlipidemia. 6. Atrial fibrillation. PLAN: Plan is to continue monitoring the patient. The patient will have her PEG tube today. Potassium will be replaced tomorrow. Continue on home medication at this time. Further recommendation per clinical course. The patient will have a PEG tube and possible SNF treatment as an outpatient. MD MANUEL DeeJ/MODL /[id number]
--- NOTE | 2018-10-18 07:50 | NUR ---
PATIENT WENT FOR PROCEDURE. NO S/S OF DISTRESS. O2 NASAL CANNULA IN PLACE.
[2018-10-18] MEDS: ASPIRIN 325 MG TAB PO SCH ×2 (08:00→16:56)
[2018-10-18] MEDS ORDERED: VANCOMYCIN HCL 500 MG ONE (08:09)
[2018-10-18] MEDS ORDERED: SODIUM CHLORIDE 0.9% 250ML 250 ML ONE (08:10)
[2018-10-18] MEDS: FUROSEMIDE 20 MG TAB PO SCH (09:00)
[2018-10-18] MEDS: ATENOLOL 50 MG TAB PO SCH (09:00)
[2018-10-18] MEDS: FOLIC ACID 1 MG TAB PO SCH (09:00)
[2018-10-18] MEDS: HYDROCHLOROTHIAZIDE 25 MG TAB PO SCH (09:00)
[2018-10-18] MEDS: GABAPENTIN 300 MG CAP PO SCH ×2 (09:00→16:56)
[2018-10-18] MEDS: ATORVASTATIN 20 MG TAB PO SCH (09:00)
[2018-10-18] MEDS: LISINOPRIL 2.5 MG TAB PO SCH (09:00)
[2018-10-18] MEDS ORDERED: ACETAMINOPHEN 1000 MG/100 ML 100 ML IV ONE (09:23)
--- NOTE | 2018-10-18 10:05 | NUR ---
REC'D REPORT FROM U[facility]A IN [facility]. PATIENT IS AAOX3. PATIENT GOT A FEVER FROM VANCO. URSULA REPORTED A FEVER/ALLERGIC OF 103.8 F. REACTION FROM VANCOMYCIN. PATIENT TO MAINTAIN NPO AND POST-FEEDINGS TO BEGIN IN 6 HOURS. GLUCERNA ORDERED AT 30 ML/HR. DRESSING IS A COVER NET DRESSING AND DRY AND INTACT. VITAL SIGNS REPORTED. BP OF 112/88, O2 AT 2L/MIN AND RUNNING AT 96%, NO PAIN, AND TEMP OF 96.4 F. SIDE RAILS UP X2, CALL RANDLE WITHIN REACH, AND BED IN LOWEST POSITION. NOTIFIED PATIENT TO LET NURSE KNOW WHEN SHE NEEDS TO USE THE RESTROOM TO PROVIDE A BEDPAN.
[2018-10-18] MEDS: PANTOPRAZOLE 40 MG 10ML VIAL IV SCH ×2 (10:20→16:56)
--- NOTE | 2018-10-18 11:30 | NUR ---
SPEECH THERAPIST NOTIFIED THAT PATIENT REFUSED TO HAVE HER NMES EXAM. ST STATED THAT SHE WILL TRY AGAIN TOMORROW.
--- NOTE | 2018-10-18 11:41 | Progress Note ---
DATE: 10/18/2018 Cardiology Progress Note SUBJECTIVE: The patient denies chest pain or shortness of breath. She is status post EGD and PEG placement today. Post-procedure, she developed fever to 103.3. OBJECTIVE: VITAL SIGNS: Temperature 96.4 degrees, pulse 96, respiratory rate 18, blood pressure 112/88, and oxygen saturation 96% on 2 L nasal cannula. GENERAL: Awake, alert, in no acute distress. LUNGS: Clear to auscultation bilaterally. No wheezes or crackles. CARDIOVASCULAR: Normal rate, regular rhythm. No murmur. Normal S1, S2. ABDOMEN: Soft, nontender. EXTREMITIES: 1+ pitting edema. CARDIAC MEDICATIONS: Lisinopril 2.5 mg p.o. daily, hydrochlorothiazide 25 mg p.o. daily, furosemide 20 mg p.o. daily, atorvastatin 20 mg p.o. daily, atenolol 50 mg p.o. daily, aspirin 325 mg p.o. b.i.d. LABORATORY DATA: Sodium 140, potassium 3.3, chloride 105, CO2 of 29, BUN 16, and creatinine 0.79. IMPRESSION: 1. Gox-WF-jelvjgcvd myocardial infarction. 2. Aspiration pneumonia. 3. Diabetes mellitus. 4. Hypertension. 5. Hyperlipidemia. 6. Atrial fibrillation, on Xarelto. RECOMMENDATIONS: Coronary angiogram during admission showed no obstructive disease. Continue medical therapy once PEG can be used. Please resume Xarelto for CVA prophylaxis. Blood pressure is acceptable for age. Continue antibiotics per primary service. Thank you for this consult. We will continue to follow. Denise Nguyễn MD ABS/MODL /[id number]
--- NOTE | 2018-10-18 13:27 | NUR ---
Nutrition Follow-up Note RD Recommendation(s) for Physician: -Rec to initiate continuous TF with Glucerna 1.2 @10mL/hr, advance as tolerated to goal rate of 50mL/hr (1440kcal, 72g protein, 966mL water) -Water flushes of 75mL water q 4hr; additional water per MD discretion -Check labs, GI tolerance, weight daily Plan of Care: RD following, monitoring for tolerance and adequacy, TF rec Nutrition reason for involvement: Follow up, New PEG RD Assessment 10/18 PEG was placed. TOW BAR DRIVER was following for NMES. Obtained telephone order from Dr. Mcfadden to start continuous TF. Notified RN of TF rec. Will continue to monitor and follow. (10/16) Pt was discussed during AM rounds. MBS on 10/15 demonstrating penetration and aspiration. Plan for PEG placement by GI. Followed by TOW BAR DRIVER for NMES. LBM- 10/15. No GI complains reported. Will communicate TF rec with RN. Will continue to monitor and follow. (10/10) Chart reviewed. Labs and meds reviewed. 72yo F, who was admitted for fever and chills after procedure for vocal cord paralysis. Visited pt in the room. Pt reported eating well w/o any weight loss NURSE SANE. No complains of nausea or vomiting. LBM /. Pt complained of hunger. Currently NPO. Will continue to monitor and follow. Principal Problems/Diagnoses: Aspiration PNA, NSTEMI PMH: hypertension, diabetes, anemia, and hyperlipidemia GI: abdomen soft, non-tender, round, LBM 610 Skin: no pressure wound noted Labs: (10/18) K 3.3 L, Ca 7.9 L (10/16) K 2.4 L, BUN 33 H, Glucose 170 200 H, Mg 2.2 H Meds: protonix, zofran Ht: 60in Wt: 200lb; 191lb BMI: 39.1kg/m2 IBW: 100lb Malnutrition Evaluation (10/10/2018) The patient does not meet criteria for a specified degree of malnutrition at this time. Will re-evaluate at follow-up as appropriate. Nutrition Prescription (Diet Order): NPO Estimated Nutritional Needs: Calories: 1150 1380kcal (25-30kcal/kg/d) Weight used: IBW Protein: 69 115g (1.5-2.5g/kg/d) Weight used: IBW Diet Adequacy: Not meeting calorie needs, Not meeting protein needs Diet Education Needs Assessment: Diet education not indicated. Nutrition Care Level: mod Nutrition Diagnosis: Inadequate oral intake related to aspiration PNA as evidenced pt requiring EN through PEG for intermediate manager nutrition. Goal: Patient will meet 75-100% of estimated needs by follow up Progress: N/A Interventions: Composition, Rate, Route Monitoring/Evaluation: Total energy intake, Total protein intake, Formula/Solution, Weight change, Labs, Gastric tolerance Signed: Irene Torrez, MS, RD, LD
--- NOTE | 2018-10-18 13:45 | NUR ---
ST NOTE: Attempted to see pt at 10:45, pt just back from peg tube placement and refused therapy with NMES to treat dysphagia. Attempted at 1:30, pt stating she felt quite bad and again refused NMES to treat dysphagia. Will return on 10/19/18. Handoff to ANDREIA Price
[2018-10-18] MEDS: D5.45%NS/KCL 20MEQ 1,000 ML IV SCH ×2 (14:10→21:04)
--- NOTE | 2018-10-18 14:50 | NUR ---
CHECKED FOR TUBE PLACEMENT VIA AUSCULTATION. INSERTED 10 M OF AIR WITH SYRINGE. SWOOSH SOUND HEARD UPON AUSCULTATION. PATIENT STARTED ON TUBE FEEDING AT 10 ML/HR AND TOLERATED. GOAL IS 50 ML/HR. TO FLUSH 50 ML EVERY 4 HOURS. PATIENT UP ON HIGH-GALICIA'S POSITION.
--- NOTE | 2018-10-18 16:00 | NUR ---
REPOSITIONED PATIENT IN BED FOR COMFORT. PATIENT STATED SHE IS NOT IN PAIN. FEEDINGS AND FLUIDS RUNNING.
--- NOTE | 2018-10-18 17:25 | NUR ---
PATIENTS TEMPERATURE IS 100.2 F. RE-CHECKED VITAL SIGNS AND TEMPERATURE WAS 101.3 F. WILL PROVIDE TYLENOL IV ORDERED.
--- NOTE | 2018-10-18 17:45 | NUR ---
ADMINISTERED TYLENOL IV PRN. WILL RE-CHECK TEMPERATURE 10 MINUTES AFTER IV INFUSION IS COMPLETE.
[2018-10-18] MEDS ORDERED: KETAMINE HCL INJ 50 MG/ML 10 ML VIAL ONE (18:28)
[2018-10-18] MEDS ORDERED: MIDAZOLAM HCL 2 MG/2 ML VIAL ONE (18:28)
--- NOTE | 2018-10-18 18:30 | NUR ---
RE-CHECKED TEMPERATURE. IT WAS 100.9 AND THEN 100.7 SECOND TIME CHECKED. PAGED DR. MOELLER (COVERING FOR NASIM) FOR ORDERS.
--- NOTE | 2018-10-18 19:00 | NUR ---
Received bedside report from day shift RN. The patient is laying on the bed. Patient is not in distress. Bed set low, call light within reach, side rails up x2 and is wearing non-skid socks. The patient is receiving tube feeding via PEG tube.
[2018-10-18] MEDS ORDERED: PROPOFOL IV EMULSION 10 MG/ML 50 ML VIAL ONE (19:09)
[2018-10-18] MEDS ORDERED: LIDOCAINE HCL 2% LOCAL INJ 5 ML SDV VIAL INJ ONE (19:09)
[2018-10-19] VITALS (10 sets, daily range): BP systolic 93–118; BP diastolic 50–70
[2018-10-19] MEDS: IPRATROPIUM BROMIDE 0.02% 2.5 ML NEB NEB SCH ×5 (00:10→23:50)
[2018-10-19] MEDS: LEVOFLOXACIN 500MG/D5W 100ML IV SCH (02:25)
[2018-10-19] MEDS: ALBUTEROL SULF 0.083% NEB SOLN 3 ML NEB NEB SCH ×6 (03:00→23:50)
[2018-10-19] MEDS: ACETAMINOPHEN 1000 MG/100 ML IV PRN (03:50)
[2018-10-19 05:43] LABS: ALANINE AMINOTRANSFERASE 17 IU/L (0-55); ALBUMIN 2.2 g/dL (3.5-5.0); ALBUMIN/GLOBULIN RATIO 0.8 (0.8-2.0); ALKALINE PHOSPHATASE 76 IU/L (40-150); ANION GAP 8.7 mmol/L (8-16); BLOOD UREA NITROGEN 13 mg/dL (7-26); BUN/CREATININE RATIO 19 (6-25); CALCIUM 7.7 mg/dL (8.4-10.2); CARBON DIOXIDE 26 mmol/L (22-29); CHLORIDE 104 mmol/L (98-107); CREATININE, SERUM 0.68 mg/dL (0.57-1.11); EST GLOMERULAR FILTRATION RATE > 60 ML/MIN (60-); GLUCOSE 156 mg/dL (74-118); MAGNESIUM 1.9 MG/DL (1.3-2.1); POTASSIUM 3.7 mmol/L (3.5-5.1); SODIUM 135 mmol/L (136-145)
--- NOTE | 2018-10-19 07:04 | NUR ---
RECEIVED PATIENT RESTING IN BED. NO ACUTE DISTRESS NOTED, RESPIRATIONS EVEN AND UNLABORED. DENIES PAIN OR DISCOMFORT AT THIS TIME. CALL LIGHT WITHIN REACH. BED IN THE LOWEST POSITION.
--- NOTE | 2018-10-19 07:26 | Progress Note ---
DATE: 10/19/2018 SUBJECTIVE: The patient is a 72-year-old female with aspiration pneumonia. PEG tube was placed yesterday. The patient is tolerating feeds up to 20 mL an hour of glycerin 1.2. The patient is currently asymptomatic, feeling good, little wheezing, but no shortness of breath present. OBJECTIVE: VITAL SIGNS: Temperature is 99.4, pulse of 94, respirations of 18, blood pressure is 94/55, pulse oximetry of 95% on 2 L of oxygen. HEENT: Normocephalic, atraumatic. Pupils are reactive to light and accommodation. CVS: S1, S2 normal. Regular rhythm. LUNGS: Positive for rhonchi bilaterally. EXTREMITIES: No clubbing, no cyanosis, no edema. ABDOMEN: PEG tube in place. Slight tenderness in the area of the bowel of the PEG tube placement, otherwise normal. Soft. LABORATORY VALUES: White count is 6.57 yesterday, hemoglobin of 11.1, hematocrit of 34.8. Chemistries; sodium 135, potassium 3.7, glucose of 156. Coags were normal. ASSESSMENT: Aspiration pneumonia, non ST-segment elevation myocardial infarction, diabetes, hypertension, hyperlipidemia, atrial fibrillation, status post PEG tube placement. The patient has a low-grade fever. Incentive spirometer has been encouraged. Tylenol as needed. Medications, the patient is on same. A PT evaluation will be done. Home health will be done and the patient's feeding rate to be maximized to 50 mL an hour to get good caloric intake. Further recommendation per clinical course. We will keep the patient in-house at this time. Monitor the electrolytes and her fever. Further disposition depending on care. MD MADONNA Dee/MODL /[id number]
--- NOTE | 2018-10-19 08:21 | NUR ---
SPOKE WITH SON MARY [phone], GAVE CHOICES IN NETWORK HE WANTS [facility] IN [place], WILL SUBMIT CLINICALS FOR REVIEW.
[2018-10-19] MEDS: D5.45%NS/KCL 20MEQ 1,000 ML IV SCH ×2 (08:29→18:37)
[2018-10-19] MEDS: INSULIN REGULAR, HUMAN 100 UNIT/1 ML 3ML VIAL SQ SCH ×4 (08:30→21:00)
--- NOTE | 2018-10-19 08:35 | NUR ---
ASSESSED FEEDING TUBE RESIDUAL, NONE NOTED AT THIS TIME. PATIENT IS TOLERATING FEEDING GOOD.
[2018-10-19] MEDS: FUROSEMIDE 20 MG TAB PO SCH (08:39)
[2018-10-19] MEDS: FOLIC ACID 1 MG TAB PO SCH (08:39)
[2018-10-19] MEDS: HYDROCHLOROTHIAZIDE 25 MG TAB PO SCH (08:39)
[2018-10-19] MEDS: PANTOPRAZOLE 40 MG 10ML VIAL IV SCH ×2 (08:39→16:36)
[2018-10-19] MEDS: ASPIRIN 325 MG TAB PO SCH ×2 (08:39→16:36)
[2018-10-19] MEDS: ATORVASTATIN 20 MG TAB PO SCH (08:39)
[2018-10-19] MEDS: LISINOPRIL 2.5 MG TAB PO SCH (08:39)
[2018-10-19] MEDS: ATENOLOL 50 MG TAB PO SCH (08:39)
[2018-10-19] MEDS: GABAPENTIN 300 MG CAP PO SCH ×2 (08:39→16:36)
--- NOTE | 2018-10-19 11:30 | NUR ---
ASSESSED PATIENT'S FEEDING, NO RESIDUAL NOTED. INCREASED FEEDING RATE TO 30CC/HR, WILL CONTINUE TO MONITOR.
--- NOTE | 2018-10-19 12:22 | Progress Note ---
DATE: 10/19/2018 Cardiology Progress Note SUBJECTIVE: The patient denies chest pain, but does endorse dyspnea on exertion. OBJECTIVE: VITAL SIGNS: Temperature 97.1 degrees, pulse 93, respiratory rate 22, blood pressure 111/58, and oxygen 94% on 2 L nasal cannula. GENERAL: Obese woman in no acute distress. Awake and alert. LUNGS: Clear to auscultation bilaterally. No wheeze or crackles. CARDIOVASCULAR: Normal rate. Regular rhythm. No murmur. Normal S1, S2. ABDOMEN: Soft and nontender. EXTREMITIES: 2+ pitting edema. CARDIAC MEDICATIONS: 1. Lisinopril 2.5 mg p.o. daily. 2. Hydrochlorothiazide 25 mg p.o. daily. 3. Furosemide 20 mg p.o. daily. 4. Atorvastatin 20 mg p.o. daily. 5. Atenolol 50 mg p.o. daily. 6. Aspirin 325 mg p.o. b.i.d. LABORATORY DATA: Sodium 135, potassium 3.7, chloride 104, CO2 of 26, BUN 13, and creatinine 0.68. ASSESSMENT: 1. Non-ST elevation myocardial infarction. 2. Aspiration pneumonia. 3. Diabetes mellitus. 4. Hypertension. 5. Hyperlipidemia. 6. Atrial fibrillation on Xarelto. PLAN: Coronary angiogram during admission showed no obstructive disease. Continue medical therapy now that PEG has been placed check BNP. May need IV diuretics. Resume Xarelto once agreeable from GI standpoint postprocedure. Blood pressure is controlled. Continue antibiotics per primary service. We will continue to follow. Denise Nguyễn MD ABS/MODL /[id number]
--- NOTE | 2018-10-19 14:31 | NUR ---
PATIENT C/O STOMACH JERKING AND FEELING LIKE SHE IS REGURGITATING THE FEEDING. PUT PATIENT'S FEEDING ON HOLD, ASSESSED RESIDUAL, PATIENT HAD 110CC. STOPPED FEEDING, PAGED DR. ADAMS TO NOTIFY HIM OF FINDINGS AND GET NEW ORDERS.
[2018-10-19] MEDS: ONDANSETRON HCL INJ 2MG/ML 2ML 2 MG/ML VIAL IV PRN ×2 (14:54→19:15)
--- NOTE | 2018-10-19 15:45 | NUR ---
RE-ASSESSED PATIENT'S RESIDUAL AFTER FEEDING BEING OFF FOR ABOUT ONE HOUR, RESIDUAL IS 70CC.
--- NOTE | 2018-10-19 16:00 | NUR ---
PAGED DR. ADAMS A SECOND TIME TO NOTIFY OF FINDINGS.
--- NOTE | 2018-10-19 16:35 | NUR ---
RE-ASSESSED FEEDING RESIDUAL AND IS NOW 50CC. RE-STARTED THE FEEDING. AWAITING DELIVERY AND INSTALLATION SUBCONTRACTOR BACK FROM DR. ADAMS. NOTIFIED PATIENT TO LET NURSE KNOW IF SHE STARTS FEELING SICK TO RE-ASSESS RESIDUAL.
--- NOTE | 2018-10-19 16:40 | NUR ---
DR. US RETURNED CALL FOR DR. ADAMS. PER RESTART FEEDING AT 100CC/HR AND INCREASE 10CC Q4H TOLERATED. Addendum: 10/19/18 at 1645 by ULISSES MILLS RN "PER RESTART FEEDING AT 10CC/HR"
[2018-10-19] MEDS ORDERED: ONDANSETRON HCL 4 MG ORAL DISINTEGRATING TAB PO PRN (17:00)
[2018-10-20] VITALS (8 sets, daily range): BP systolic 97–113; BP diastolic 54–62
--- NOTE | 2018-10-20 00:40 | NUR ---
patient in bed sleeping with the TV on, semi fowlers position, tube feed going at 10cc/hr with water flush 50cc/Q4hr. patient is in the upright position with a pillow on her abdomen for when she coughs.
[2018-10-20] MEDS: LEVOFLOXACIN 500MG/D5W 100ML IV SCH (01:48)
[2018-10-20] MEDS: ONDANSETRON HCL INJ 2MG/ML 2ML 2 MG/ML VIAL IV PRN ×4 (01:54→21:47)
--- NOTE | 2018-10-20 02:15 | NUR ---
Tube feed residual 100cc will not advance the feeding. Feedings will continue at 10cc/hr
[2018-10-20] MEDS: ALBUTEROL SULF 0.083% NEB SOLN 3 ML NEB NEB SCH ×6 (03:00→22:45)
[2018-10-20 06:06] LABS: BASOPHILS % 0.3 % (0.0-1.0); EOSINOPHILS % 0.2 % (0.0-6.0); HEMATOCRIT 31.8 % (34.2-44.1); HEMOGLOBIN 10.3 g/dL (12.0-16.0); LYMPHOCYTES # (AUTO) 1.1 (1.0-3.2); LYMPHOCYTES % 11.2 % (18.0-39.1); MEAN CORPUSCULAR HEMOGLOBIN 32.1 pg (28-32); MEAN CORPUSCULAR HGB CONC 32.4 g/dL (31-35); MEAN CORPUSCULAR VOLUME 99.1 fL (81-99); MONOCYTES # (AUTO) 1.1 (0.2-0.8); MONOCYTES % 11.4 % (4.4-11.3); NEUTROPHILS # (AUTO) 7.1 (2.1-6.9); NEUTROPHILS % 73.4 % (38.7-80.0); PLATELET COUNT 155 x10e3/uL (140-360); RED BLOOD COUNT 3.21 x10e6/uL (3.6-5.1); RED CELL DISTRIBUTION WIDTH 15.3 % (11.7-14.4)
[2018-10-20 06:24] LABS: ALANINE AMINOTRANSFERASE 16 IU/L (0-55); ALBUMIN 2.2 g/dL (3.5-5.0); ALBUMIN/GLOBULIN RATIO 0.6 (0.8-2.0); ALKALINE PHOSPHATASE 83 IU/L (40-150); ANION GAP 11.3 mmol/L (8-16); BLOOD UREA NITROGEN 9 mg/dL (7-26); BUN/CREATININE RATIO 11 (6-25); CALCIUM 8.3 mg/dL (8.4-10.2); CARBON DIOXIDE 28 mmol/L (22-29); CHLORIDE 99 mmol/L (98-107); CREATININE, SERUM 0.83 mg/dL (0.57-1.11); EST GLOMERULAR FILTRATION RATE > 60 ML/MIN (60-); GLUCOSE 114 mg/dL (74-118); POTASSIUM 4.3 mmol/L (3.5-5.1); SODIUM 134 mmol/L (136-145)
--- NOTE | 2018-10-20 06:52 | NUR ---
RECEIVED PATIENT RESTING IN BED. RESPIRATIONS EVEN AND UNLABORED, NO ACUTE DISTRESS NOTED. CALL LIGHT WITHIN REACH. BED IN THE LOWEST POSITION.
--- NOTE | 2018-10-20 07:00 | NUR ---
report given to Gricelda BOSWELL, patient tube feeding going at 100cc/hr with 50 flush Q4hrs. Alert and oriented, IV intact.
--- NOTE | 2018-10-20 07:22 | Progress Note ---
DATE: 10/20/2018 SUBJECTIVE: This patient is a 72-year-old female, who comes in with pneumonia, non ST-segment elevation NV, and atrial fibrillation. Currently, the patient had a PEG tube placed. The patient is not tolerating her tube feeds. She is on Glucerna 1.5. Residual has been noticed, the patient has a 10 mL an hour. Still complains of some abdominal pain and also nausea associated with it. OBJECTIVE: VITAL SIGNS: Temperature is 99.8, pulse of 87, respirations of 18, blood pressure is 97/54, and pulse oximeter of 98%. HEENT: Normocephalic and atraumatic. Pupils are reactive to light and accommodation. CVS: S1, S2. Regular rate and rhythm. ABDOMEN: Tender in the PEG tube site. Bowel sounds are positive. EXTREMITIES: No clubbing, no cyanosis, no edema. LABORATORY VALUES: Today's white count was 9.66, hemoglobin of 10.3, and hematocrit of 31.8. Chemistries; sodium of 134, potassium of 4.3, BUN and creatinine have been normal. Glucoses have been running in 140s to 170s. Magnesium is normal at 2.0. The patient's BNP was 27.5. ASSESSMENT: 1. Aspiration pneumonia. 2. Non ST-segment elevation myocardial infarction. 3. Diabetes. 4. Hypertension. 5. Obesity. 6. Atrial fibrillation. 7. Hyperlipidemia. PLAN: 1. Plan is to continue on given medications, the patient is on Levaquin for pneumonia. 2. She continues on albuterol and Atrovent treatments. The patient is also on pantoprazole 40 mg, lisinopril, hydrochlorothiazide, furosemide, and atorvastatin for cardiac reasons and the patient is also on insulin protocol for diabetes. Further recommendation and clinical course, we will continue to monitor the patient. The patient will up titrate her feeds today. Reglan as needed. Further recommendation and clinical course. Physical therapy has been instituted. We will continue to monitor the patient along with consultants. MD MANUEL DeeJ/MODL /[id number]
[2018-10-20] MEDS: INSULIN REGULAR, HUMAN 100 UNIT/1 ML 3ML VIAL SQ SCH ×4 (07:30→21:31)
[2018-10-20] MEDS: IPRATROPIUM BROMIDE 0.02% 2.5 ML NEB NEB SCH ×3 (07:38→19:15)
[2018-10-20] MEDS: LISINOPRIL 2.5 MG TAB PO SCH (07:51)
[2018-10-20] MEDS: ATENOLOL 50 MG TAB PO SCH (07:52)
--- NOTE | 2018-10-20 08:10 | NUR ---
ASSESSED PATIENT'S RESIDUAL, 40CC NOTED. PER DR. MOELLER INCREASE FEEDING TO 20CC/HR. FEEDING INCREASED, WILL CONTINUE TO MONITOR.
[2018-10-20] MEDS: HYDROCHLOROTHIAZIDE 25 MG TAB PO SCH (08:13)
[2018-10-20] MEDS: METOCLOPRAMIDE HCL 10MG/10ML UDC PEG SCH ×2 (08:13→16:54)
[2018-10-20] MEDS: ASPIRIN 325 MG TAB PO SCH ×2 (08:13→16:55)
[2018-10-20] MEDS: GABAPENTIN 300 MG CAP PO SCH ×2 (08:13→16:55)
[2018-10-20] MEDS: ATORVASTATIN 20 MG TAB PO SCH (08:13)
[2018-10-20] MEDS: PANTOPRAZOLE 40 MG 10ML VIAL IV SCH ×2 (08:13→16:54)
[2018-10-20] MEDS: FOLIC ACID 1 MG TAB PO SCH (08:13)
[2018-10-20] MEDS: FUROSEMIDE 20 MG TAB PO SCH (08:13)
[2018-10-20 08:57] LABS: BAND NEUTROPHILS % (MANUAL) 1 %; LYMPHOCYTES % (MANUAL) 11 % (19-48); MONOCYTES % (MANUAL) 9 % (3.4-9.0); NEUTROPHILS % (MANUAL) 79 % (40-74); RBC MORPHOLOGY COMMENT ABNORMAL
[2018-10-20 08:58] LABS: ANISOCYTOSIS SLIGHT; PLATELET ESTIMATE ADEQUATE; PLATELET MORPHOLOGY COMMENT FEW EDTA CLUMPING
[2018-10-20] MEDS: D5.45%NS/KCL 20MEQ 1,000 ML IV SCH (09:11)
--- NOTE | 2018-10-20 12:00 | NUR ---
ASSESSED PATIENT'S RESIDUAL, 30CC NOTED. PATIENT IS STILL A LITTLE NAUSEOUS AT TIMES.
[2018-10-20] MEDS: MORPHINE SULFATE INJ 4 MG/ML INJ 1ML IV PRN (14:55)
--- NOTE | 2018-10-20 16:28 | NUR ---
Nutrition Follow-up Note RD Recommendation(s) for Physician: -Rec continuous TF with Glucerna 1.2 @10mL/hr, advance as tolerated, to goal rate of 50mL/hr (1440kcal, 72g protein, 966mL water) -Water flushes of 50mL water q 4hr; additional water per MD discretion -Check labs, GI tolerance, weight daily -Continue Reglan to promote digestion -Only hold TF if gastric residual >250mL -If symptoms persist, please obtain KUB Plan of Care: RD following, monitoring for tolerance and adequacy, TF rec Nutrition reason for involvement: Follow up RD Assessment 10/20 Visited pt in the room. TF was running at 20mL/hr during my visit. Pt was complaining of abdominal pain with nausea. LBM 10/15. Pt stated my BM is irregular. Per ANDREIA Madison, pt was having 30 40mL gastric residual today. Reglan has been ordered to promote digestion. Pt also reported milk intolerance (not tested with milk allergy before). Pt stated I get stomach cramping with dairy. Explained that Glucerna is suitable for pt with lactose intolerance. RD rec to only hold TF if gastric residual >250mL. If symptoms persist, please obtain KUB. Will continue to monitor and follow. 10/18 PEG was placed. TRIAGE TECHNICIAN was following for NMES. Obtained telephone order from Dr. Mcfadden to start continuous TF. Notified RN of TF rec. Will continue to monitor and follow. (10/16) Pt was discussed during AM rounds. MBS on 10/15 demonstrating penetration and aspiration. Plan for PEG placement by GI. Followed by TRIAGE TECHNICIAN for NMES. LBM- 10/15. No GI complains reported. Will communicate TF rec with RN. Will continue to monitor and follow. (10/10) Chart reviewed. Labs and meds reviewed. 72yo F, who was admitted for fever and chills after procedure for vocal cord paralysis. Visited pt in the room. 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 No complains of nausea or vomiting. LBM 10/09. Pt complained of hunger. Currently NPO. Will continue to monitor and follow. Principal Problems/Diagnoses: Aspiration PNA, NSTEMI PMH: hypertension, diabetes, anemia, and hyperlipidemia GI: abdomen soft, non-tender, round, LBM 10/15 Skin: no pressure wound noted Labs: 10/20 Na 134 L, Glucose 132 H, Ca 8.3 L (10/18) K 3.3 L, Ca 7.9 L (10/16) K 2.4 L, BUN 33 H, Glucose 170 200 H, Mg 2.2 H Meds: zofran, insulin, KCl, reglan, protonix, lasix, esidrix, folic acid, lipitor, levaquin Ht: 60in Wt: 200lb; 191lb BMI: 39.1kg/m2 IBW: 100lb Malnutrition Evaluation (10/10/2018) The patient does not meet criteria for a specified degree of malnutrition at this time. Will re-evaluate at follow-up as appropriate. Nutrition Prescription (Diet Order): Glucernasra 1.2 Estimated Nutritional Needs: Calories: 1150 1380kcal (25-30kcal/kg/d) Weight used: IBW Protein: 69 115g (1.5-2.5g/kg/d) Weight used: IBW Diet Adequacy: Not meeting calorie needs, Not meeting protein needs Diet Education Needs Assessment: Diet education not indicated. Nutrition Care Level: mod Nutrition Diagnosis: Inadequate oral intake related to aspiration PNA as evidenced pt requiring EN through PEG for assisted nutrition. Goal: Patient will meet 75-100% of estimated needs by follow up Progress: N/A Interventions: Composition, Rate, Route Monitoring/Evaluation: Total energy intake, Total protein intake, Formula/Solution, Weight change, Labs, Gastric tolerance Signed: Irene Torrez, MS, RD, LD
--- NOTE | 2018-10-20 16:50 | NUR ---
ASSESSED PATIENT'S RESIDUAL, 30CC NOTED. PATIENT STATES SHE FEELS NAUSEATED STILL, MEDICATING PATIENT WITH PRN ZOFRAN.
--- NOTE | 2018-10-20 19:26 | NUR ---
REPORT GIVEN TO ONCOMING NURSE, PATIENT IS RESTING IN BED. NO ACUTE DISTRESS NOTED, PATIENT DENIES PAIN AT THIS TIME. CALL LIGHT WITHIN REACH. BED IN THE LOWEST POSITION.
--- NOTE | 2018-10-20 19:44 | NUR ---
PT IS RESTING IN BED. RESPIRATION IS EVEN AND UNLABORED, NO DISTRESS NOTED. BED IN THE LOWEST POSITION, LOCKED, AND CALL LIGHT WITHIN REACH. WILL CONTINUE TO MONITOR.
--- NOTE | 2018-10-20 21:39 | Progress Note ---
DATE: 10/20/2018 Cardiology Progress Note SUBJECTIVE: No major events overnight. OBJECTIVE: VITAL SIGNS: Temperature afebrile, pulse 85, respiratory rate 21, blood pressure 107/56, saturating 95% on 2 L nasal cannula. GENERAL: Elderly white female, no acute distress. CARDIOVASCULAR: Regular rate and rhythm. No murmurs, rubs, or gallops. ABDOMEN: Soft. Mildly tender. PEG tube in place. NEURO AND PSYCH: Alert and oriented x2. INPATIENT MEDICATIONS: Reviewed. LABORATORY DATA: Reviewed. ASSESSMENT: 1. Non-ST elevation myocardial infarction. 2. Aspiration pneumonia. 3. Diabetes mellitus. 4. Hypertension. 5. Hyperlipidemia. 6. Atrial fibrillation, on Xarelto. PLAN: Had coronary angiography earlier this admission showed nonobstructive CAD. Continue medical therapy. Resume Xarelto. Another PEG tube has been placed. Antibiotics per primary team. BNP checked yesterday was 27.5, which is normal. Thank you for this consult. We will continue to follow. MD SHAYLA Do/DA /[id number]
[2018-10-21] VITALS (9 sets, daily range): BP systolic 95–131; BP diastolic 50–67
[2018-10-21] MEDS: D5.45%NS/KCL 20MEQ 1,000 ML IV SCH ×2 (00:24→14:10)
--- NOTE | 2018-10-21 00:30 | NUR ---
PT HAD 60ML RESIDUAL FROM PEG TUBE FEEDING. WILL CONTINUE TO MONITOR.
[2018-10-21] MEDS: LEVOFLOXACIN 500MG/D5W 100ML IV SCH (02:01)
[2018-10-21] MEDS: IPRATROPIUM BROMIDE 0.02% 2.5 ML NEB NEB SCH ×4 (02:30→19:12)
[2018-10-21] MEDS: ALBUTEROL SULF 0.083% NEB SOLN 3 ML NEB NEB SCH ×5 (02:30→19:12)
[2018-10-21] MEDS: ONDANSETRON HCL INJ 2MG/ML 2ML 2 MG/ML VIAL IV PRN (05:06)
--- NOTE | 2018-10-21 06:56 | NUR ---
REPORT GIVEN TO ONCOMING NURSE, PATIENT IS RESTING IN BED. NO ACUTE DISTRESS NOTED, RESPIRATIONS EVEN AND UNLABORED. PATIENT DENIES PAIN OR DISCOMFORT AT THIS TIME. CALL LIGHT WITHIN REACH. BED IN THE LOWEST POSITION. Addendum: 10/21/18 at 1922 by ULISSES MILLS RN RECEIVED REPORT FROM OFF-GOING NURSE
--- NOTE | 2018-10-21 07:01 | Progress Note ---
DATE: 10/21/2018 SUBJECTIVE: This is a 72-year-old female with a history of pneumonia with history of non ST-segment elevation [place], history of aspiration here status post PEG tube placement. The patient has not been able to tolerate feeds. Reglan was started yesterday, but did improve with the nausea. The feeds are up to 20 mL an hour. The patient does complain of recurrent nausea and a questionable history to milk allergies. OBJECTIVE: VITAL SIGNS: Temperature is 98.4, pulse of 97, respirations of 18, blood pressure is 113/55, pulse oximetry of 98%. HEENT: Normocephalic, atraumatic. CVS: S1, S2 normal. Regular rate and rhythm. LUNGS: Decreased air entry. ABDOMEN: Tender at the PEG tube site. No rebound and no guarding present. NG tube feeds are on. EXTREMITIES: No clubbing, no cyanosis, no edema. LABORATORY VALUES: Today's hemoglobin was 10.3 with hematocrit of 31.8. No left shift present. BMP; sodium of 134, potassium was 4.3, BUN of 9, creatinine 0.83. MEDICATIONS: As per medical reconciliation sheet. ASSESSMENT: 1. Aspiration pneumonia. 2. Qul-EB-fdwizap elevation myocardial infarction. 3. Diabetes. 4. Hypertension. 5. Atrial fibrillation. 6. Hyperlipidemia. PLAN: 1. Continue with Reglan and up-titrating the PEG tube feeds. 2. Consult with Nutrition will be done to have a formula with less or no milk and milk products and increase soy. 3. Continue with medications for diabetes and CV status. Further recommendation and clinical course, possible SNF is recommended for the patient, but the patient wants to go home with home health at this point of time. The up-titration of feeds are needed and therefore we will try to regulate this before the patient is being discharged home or to SNF. MD MADONNA Dee/DA /[id number]
[2018-10-21 07:33] LABS: ANION GAP 12.2 mmol/L (8-16); BLOOD UREA NITROGEN 10 mg/dL (7-26); BUN/CREATININE RATIO 13 (6-25); CALCIUM 8.2 mg/dL (8.4-10.2); CARBON DIOXIDE 26 mmol/L (22-29); CHLORIDE 100 mmol/L (98-107); CREATININE, SERUM 0.79 mg/dL (0.57-1.11); EST GLOMERULAR FILTRATION RATE > 60 ML/MIN (60-); GLUCOSE 128 mg/dL (74-118); POTASSIUM 4.2 mmol/L (3.5-5.1); SODIUM 134 mmol/L (136-145)
[2018-10-21] MEDS: INSULIN REGULAR, HUMAN 100 UNIT/1 ML 3ML VIAL SQ SCH ×4 (08:30→20:09)
[2018-10-21] MEDS: LISINOPRIL 2.5 MG TAB PO SCH (08:37)
[2018-10-21] MEDS: ATENOLOL 50 MG TAB PO SCH (08:38)
--- NOTE | 2018-10-21 09:15 | NUR ---
ASSESSED PATIENT'S RESIDUAL, 60CC NOTED, PATIENT STATES SHE IS FEELING A LITTLE NAUSEATED BUT DOES NOT NEED MEDICATION AT THIS TIME.
[2018-10-21] MEDS: HYDROCHLOROTHIAZIDE 25 MG TAB PO SCH (09:17)
[2018-10-21] MEDS: METOCLOPRAMIDE HCL 10MG/10ML UDC PEG SCH ×2 (09:17→16:08)
[2018-10-21] MEDS: FOLIC ACID 1 MG TAB PO SCH (09:17)
[2018-10-21] MEDS: FUROSEMIDE 20 MG TAB PO SCH (09:17)
[2018-10-21] MEDS: ASPIRIN 325 MG TAB PO SCH ×2 (09:17→16:08)
[2018-10-21] MEDS: GABAPENTIN 300 MG CAP PO SCH ×2 (09:17→16:08)
[2018-10-21] MEDS: PANTOPRAZOLE 40 MG 10ML VIAL IV SCH ×2 (09:17→16:08)
[2018-10-21] MEDS: ATORVASTATIN 20 MG TAB PO SCH (09:17)
[2018-10-21] MEDS: MORPHINE SULFATE INJ 4 MG/ML INJ 1ML IV PRN (09:26)
--- NOTE | 2018-10-21 13:20 | NUR ---
ASSESSED PATIENT'S FEEDING TUBE RESIDUAL, ONLY 20CC NOTED. INCREASED TO 30CC/HR AND WILL SEE HOW PATIENT TOLERATES IT.
--- NOTE | 2018-10-21 13:24 | NUR ---
PATIENT HAD A BM, BLOOD NOTED ON IT. PAGED DR. ADAMS TO NOTIFY HIM.
--- NOTE | 2018-10-21 13:41 | NUR ---
NOTIFIED DR. US CALLED BACK AND NOTIFIED OF PATIENT HAVING BLOOD IN THE BM, NO NEW ORDERS RECEIVED AT THIS TIME.
--- NOTE | 2018-10-21 19:18 | NUR ---
REPORT GIVEN TO ONCOMING NURSE, PATIENT IS IN STABLE CONDITION. NO S/S OF PAIN NOTED. CALL LIGHT WITHIN REACH. BED IN THE LOWEST POSITION.
[2018-10-22] VITALS (8 sets, daily range): BP systolic 95–112; BP diastolic 49–60
[2018-10-22] MEDS: ALBUTEROL SULF 0.083% NEB SOLN 3 ML NEB NEB SCH ×6 (00:05→19:47)
[2018-10-22] MEDS: IPRATROPIUM BROMIDE 0.02% 2.5 ML NEB NEB SCH ×4 (00:05→19:47)
--- NOTE | 2018-10-22 00:13 | NUR ---
PT HAD 120ML RESIDUAL FROM PEG TUBE FEEDING. WILL CONTINUE TO MONITOR.
[2018-10-22] MEDS: LEVOFLOXACIN 500MG/D5W 100ML IV SCH (01:27)
[2018-10-22] MEDS: D5.45%NS/KCL 20MEQ 1,000 ML IV SCH (04:29)
--- NOTE | 2018-10-22 07:08 | Progress Note ---
DATE: 10/22/2018 SUBJECTIVE: Alert and oriented x3. Does complain of some abdominal pain around the PEG tube site. Nausea is better, but continues to be there. Feeds up to 30 mL an hour per PEG tube. OBJECTIVE: VITAL SIGNS: Temperature 99.1, T-max was 100.3, pulse of 101, respirations of 20, blood pressure is 102/58, and pulse oximetry of 98% on 2 L of nasal cannula. HEENT: Normocephalic, atraumatic. Pupils are reactive to light and accommodation. CVS: S1 and S2 normal. Regular rate and rhythm. ABDOMEN: Tender on the PEG tube site, but no rebound, no guarding. Positive for few rhonchi in the right side. LABORATORY VALUES: White count is 9.66 from the 15th, hemoglobin of 10.3, hematocrit of 31.8. Chemistries have been running normal. Yesterday's sodium was 134, glucose 128. MEDICATIONS: Remain same. ASSESSMENT: 1. Aspiration pneumonia. 2. Jpw-XH-qjsiqww elevation myocardial infarction. 3. Diabetes. 4. Hypertension. 5. Atrial fibrillation. 6. Hyperlipidemia. PLAN: Plan is to continue with Reglan up titrating the PEG tube feeds. Continue with CV medications and diabetes medication. SNF consult has been recommended and ordered. The patient can be transferred to SNF when bed available. Further recommendation per clinical course. MD MADONNA Dee/HARRISONL /[id number]
[2018-10-22] MEDS: INSULIN REGULAR, HUMAN 100 UNIT/1 ML 3ML VIAL SQ SCH ×4 (07:30→21:29)
--- NOTE | 2018-10-22 07:40 | NUR ---
Received patient and alert and responsive, in bed, tube feeding running, patient c/o nausea and will medicate and continue to monitor, call light within reach
[2018-10-22] MEDS: ASPIRIN 325 MG TAB PO SCH ×2 (08:00→17:00)
[2018-10-22] MEDS: PANTOPRAZOLE 40 MG 10ML VIAL IV SCH ×2 (09:34→17:00)
[2018-10-22] MEDS: METOCLOPRAMIDE HCL 10MG/10ML UDC PEG SCH ×2 (09:34→17:00)
[2018-10-22] MEDS: HYDROCHLOROTHIAZIDE 25 MG TAB PO SCH (09:34)
[2018-10-22] MEDS: FOLIC ACID 1 MG TAB PO SCH (09:34)
[2018-10-22] MEDS: LISINOPRIL 2.5 MG TAB PO SCH (09:35)
[2018-10-22] MEDS: GABAPENTIN 300 MG CAP PO SCH ×2 (09:35→17:00)
[2018-10-22] MEDS: ATENOLOL 50 MG TAB PO SCH (09:35)
[2018-10-22] MEDS: ATORVASTATIN 20 MG TAB PO SCH (09:39)
[2018-10-22] MEDS: FUROSEMIDE 20 MG TAB PO SCH (09:39)
--- NOTE | 2018-10-22 10:00 | NUR ---
Patient in bed, episodes of coughing and clearing her throat, HOB elevated and Glucerna held as residual at 25cc, administered meds and tolerated well. Will continue to monitor
--- NOTE | 2018-10-22 11:10 | NUR ---
Residual checked again and at 10cc, continued tube feeding at this time, will monitor, BLE with 2+ edema, elevated.
--- NOTE | 2018-10-22 13:11 | NUR ---
OMPLETED RTF AND PASRR, FAXED UPDATED CLINICALS TO [facility].
--- NOTE | 2018-10-22 19:10 | NUR ---
Bedside rounds completed with morning nurse. Pt alert to name. Lying in bed HOB 90 degrees. Denies pain at this time. 20g IV left FA, D51/2NS @75. PEG tube patent, Glucerna 1.2 @30mls/hr. No acute distress noted. Call mcgraw within reach. Will continue to monitor.
[2018-10-23] VITALS (8 sets, daily range): BP systolic 80–103; BP diastolic 41–58
[2018-10-23] MEDS: IPRATROPIUM BROMIDE 0.02% 2.5 ML NEB NEB SCH ×4 (00:08→19:05)
[2018-10-23] MEDS: ALBUTEROL SULF 0.083% NEB SOLN 3 ML NEB NEB SCH ×7 (00:08→22:50)
[2018-10-23] MEDS: D5.45%NS/KCL 20MEQ 1,000 ML IV SCH ×2 (00:15→09:50)
--- NOTE | 2018-10-23 00:45 | NUR ---
Pt c/o feeling full and bloated, residual 70ml, PEG tube feeding HELD.
[2018-10-23] MEDS: LEVOFLOXACIN 500MG/D5W 100ML IV SCH (02:00)
--- NOTE | 2018-10-23 02:50 | NUR ---
Pt continues to c/o feeling full and bloated. Gastric residual 60ml. PEG tube feedings HELD.
--- NOTE | 2018-10-23 06:35 | NUR ---
Dr. Samuels paged regarding gastric residual 55ml, pt c/o feeling full and bloated. Feeding HELD, waiting callback. Pt denies pain. Will continue to monitor.
--- NOTE | 2018-10-23 06:50 | NUR ---
Pt alert and orient to name. Denies pain at this time. No distress noted. PEG tube, Glucerna 1.2 @30ml on HOLD residual 55mls, Pt c/o feeling full and bloated. awaiting Dr. Samuels callback. 20g IV left FA patent, D5 1/2NS @75ml/hr. Report given to morning nurse.
[2018-10-23] MEDS: INSULIN REGULAR, HUMAN 100 UNIT/1 ML 3ML VIAL SQ SCH ×4 (07:30→21:00)
[2018-10-23] MEDS: ATORVASTATIN 20 MG TAB PO SCH (09:33)
[2018-10-23] MEDS: FUROSEMIDE 20 MG TAB PO SCH (09:33)
[2018-10-23] MEDS: PANTOPRAZOLE 40 MG 10ML VIAL IV SCH ×2 (09:33→17:01)
[2018-10-23] MEDS: HYDROCHLOROTHIAZIDE 25 MG TAB PO SCH (09:33)
[2018-10-23] MEDS: GABAPENTIN 300 MG CAP PO SCH ×2 (09:33→17:01)
[2018-10-23] MEDS: FOLIC ACID 1 MG TAB PO SCH (09:33)
[2018-10-23] MEDS: ATENOLOL 50 MG TAB PO SCH (09:34)
[2018-10-23] MEDS: LISINOPRIL 2.5 MG TAB PO SCH (09:34)
[2018-10-23] MEDS: ASPIRIN 325 MG TAB PO SCH ×2 (09:35→17:01)
[2018-10-23] MEDS: ONDANSETRON HCL INJ 2MG/ML 2ML 2 MG/ML VIAL IV PRN (11:01)
--- NOTE | 2018-10-23 12:43 | NUR ---
CM DIRECTOR PLACED CALL TO EDGARDO[facility] ([phone]) TO F/U ON STATUS OF INSURANCE AUTH AND PROCESS. HE STATES PATIENT IS STILL PENDING INSURANCE AUTH. CM DIRECTOR CALLED ZORA MAX/[facility] ([phone]) - LEFT MESSAGE FOR HER TO CALL BACK VIA VOICEMAIL. CM/SW WILL CONTINUE TO FOLLOW FOR ONGOING ASSESSMENT OF DISCHARGE NEEDS. Addendum: 10/23/18 at 1253 by Kateryna Byrne CM CM DIRECTOR GAVE INSURANCE CM CONTACT INFORMATION TO [facility] FOR HIS ADMISSIONS TEAM TO CALL AND F/U.
--- NOTE | 2018-10-23 15:53 | NUR ---
Nutrition Follow-up Note RD Recommendation(s) for Physician: -Rec to increase continuous TF with Glucerna 1.2 to goal rate of 50mL/hr (1440kcal, 72g protein, 966mL water) -Water flushes of 50mL water q 4hr; additional water per MD discretion -Check labs, GI tolerance, weight daily -Rec Reglan to promote digestion -Only hold TF if gastric residual >250mL -If symptoms persist, please obtain KUB Plan of Care: RD following, monitoring for tolerance and adequacy, TF rec Nutrition reason for involvement: Follow up RD Assessment 10/23 Pt was discussed during AM rounds. Night nurse held TF as pt was complaining of being full and bloated. Gastric residual was between 55-70mL. Communicated with Day nurse to not hold TF unless gastric residual >250mL. Obtained order from Dr. Glaser for Reglan 10mg q 6hr. Visited pt in the room. TF was turned down to 20ml/hr. Pt aware that this is the only diabetic standard formula available in this facility; also explained the role of Reglan in promoting gastric motility. Unable to determine if pt is truly not tolerating the formula as we are not able to reach goal rate of 50mL/hr and gastric residual has been low. Communicated RD recommendation with ANDREIA Ballard. Will continue to monitor and follow. 10/20 Visited pt in the room. TF was running at 20mL/hr during my visit. Pt was complaining of abdominal pain with nausea. LBM 10/15. Pt stated my BM is irregular. Per ANDREIA Madison, pt was having 30 40mL gastric residual today. Reglan has been ordered to promote digestion. Pt also reported milk intolerance (not tested with milk allergy before). Pt stated I get stomach cramping with dairy. Explained that Glucerna is suitable for pt with lactose intolerance. RD rec to only hold TF if gastric residual >250mL. If symptoms persist, please obtain KUB. Will continue to monitor and follow. 10/18 PEG was placed. UTILITY SYSTEM OPERATOR was following for NMES. Obtained telephone order from Dr. Mcfadden to start continuous TF. Notified RN of TF rec. Will continue to monitor and follow. (10/16) Pt was discussed during AM rounds. MBS on 10/15 demonstrating penetration and aspiration. Plan for PEG placement by GI. Followed by UTILITY SYSTEM OPERATOR for NMES. LBM- 10/15. No GI complains reported. Will communicate TF rec with RN. Will continue to monitor and follow. (10/10) Chart reviewed. Labs and meds reviewed. 72yo F, who was admitted for fever and chills after procedure for vocal cord paralysis. Visited pt in the room. 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 No complains of nausea or vomiting. LBM 10/09. Pt complained of hunger. Currently NPO. Will continue to monitor and follow. Principal Problems/Diagnoses: Aspiration PNA, NSTEMI PMH: hypertension, diabetes, anemia, and hyperlipidemia GI: abdomen soft, non-tender, round, LBM 10/21 Skin: no pressure wound noted Labs: 10/20 Na 134 L, Glucose 132 H, Ca 8.3 L (10/18) K 3.3 L, Ca 7.9 L (10/16) K 2.4 L, BUN 33 H, Glucose 170 200 H, Mg 2.2 H Meds: zofran, KCl, protonix, lasix, folic acid, lipitor Ht: 60in Wt: 200lb; 191lb; 203lb BMI: 39.1kg/m2 IBW: 100lb Malnutrition Evaluation (10/10/2018) The patient does not meet criteria for a specified degree of malnutrition at this time. Will re-evaluate at follow-up as appropriate. Nutrition Prescription (Diet Order): Glucerna 1.2 @50mL/hr Estimated Nutritional Needs: Calories: 1150 1380kcal (25-30kcal/kg/d) Weight used: IBW Protein: 69 115g (1.5-2.5g/kg/d) Weight used: IBW Diet Adequacy: Not meeting calorie needs, Not meeting protein needs Diet Education Needs Assessment: Diet education not indicated. Nutrition Care Level: mod Nutrition Diagnosis: Inadequate oral intake related to aspiration PNA as evidenced pt requiring EN through PEG for long-term nutrition. Goal: Patient will meet 75-100% of estimated needs by follow up Progress: Some progress Interventions: Composition, Rate, Route Monitoring/Evaluation: Total energy intake, Total protein intake, Formula/Solution, Weight change, Labs, Gastric tolerance Signed: Irene Torrez, MS, RD, LD
--- NOTE | 2018-10-23 16:45 | NUR ---
Phone call to Dr Collier's office regarding drop of pt's BP to 80/40, HR 84, temp 100.1, pt is asymptomatic and not in any distress, and she denies dizziness at this time.
--- NOTE | 2018-10-23 17:30 | NUR ---
Dr Minh Mcfadden on unit made aware of pt's low bp in sbp in the 80's, pt is asymptomatic. Received order to give a 500ml bolus x1.
[2018-10-23] MEDS ORDERED: SODIUM CHLORIDE 0.9% 500ML 500 ML ONE (18:31)
[2018-10-23] MEDS ORDERED: SODIUM CHLORIDE 0.9% 500ML 500 ML IV ONE (18:45)
--- NOTE | 2018-10-23 18:58 | Progress Note ---
DATE: 10/23/2018 SUBJECTIVE: The patient is a 72-year-old female, who comes in with aspiration pneumonia, history of atrial fibrillation, and history of CAD. Currently, the patient has been put on PEG tube feeds at 30 mL/hr. The patient has residual up to 70 mL, has to cutback to 70 mL/hr. Another nutrition consult will be done. OBJECTIVE: VITAL SIGNS: Temperature is 100, pulse of 84, respiration of 20, blood pressure is 80/41, and pulse oximetry of 95%. HEENT: Normocephalic, atraumatic. Pupils are reactive to light and accommodation. CVS: S1, S2 normal. Regular rate and rhythm. ABDOMEN: Tender at the PEG tube site placement. EXTREMITIES: No clubbing. No cyanosis. No edema. LABORATORY VALUES: The patient's hemoglobin is 10.3 and hematocrit 31.8. Chemistries; glucose in 120s to 133. ASSESSMENT: Aspiration pneumonia, vts-JN-dthvadb elevation myocardial infarction, diabetes, hypertension, atrial fibrillation, and hyperlipidemia. PLAN: To continue with PEG tube feeds. We will downgrade to 20 mL/hr. For blood pressure being low, we will go ahead and bolus 500 mL of normal saline. Also consult with SNF has been done. Further recommendation per clinical course. We will check her hemoglobin and hematocrit tomorrow to look for stability of CBC. MD MADONNA Dee/MODL /[id number]
--- NOTE | 2018-10-23 20:36 | NUR ---
TEMPERATURE REASSESSED WITH READING OF 100.6. PATIENT DOES NOT HAVE ORDER FOR ANTIPYRETIC AT THIS TIME. CALL AND SPOKE WITH DR MOELLER REGARDING THE ELEVATED TEMPERATURE, NEW ORDERS RECEIVED.
[2018-10-23] MEDS ORDERED: ACETAMINOPHEN 325 MG/10 ML UDC NG PRN (20:45)
--- NOTE | 2018-10-23 21:58 | Progress Note ---
DATE: 10/23/2018 GI Progress Report. SUBJECTIVE: The patient has had a significant residual from the G-tube feeding. She also has had one episode of nausea followed by bilious vomiting this morning. The patient at this moment denies any abdominal pain. She is tolerating G-tube feeding at the rate of 20 mL an hour. REVIEW OF SYSTEMS: GENERAL: No fever or chills. CVS: No chest pain or palpitation. RESPIRATORY: No cough or expectoration. MEDICATIONS: Reviewed as per JUL. She is on pantoprazole 40 mg IV twice daily along with levofloxacin 500 mg IV daily. PHYSICAL EXAMINATION: VITAL SIGNS: Temperature 100, pulse 85 to 92, respirations 18, blood pressure 87/48 to 80/41. GENERAL: Not in any acute distress. Obese body habitus. HEENT: Oral mucosa is moist. ABDOMEN: Soft. G-tube site is clean with minimal discharge of the feeding formula. Nondistended, nontender. No palpable mass or hernia. Positive bowel sounds. LABORATORY DATA: None today. IMPRESSION: Oropharyngeal dysphagia, status post PEG. The patient had a significant residual along with episode of nausea and vomiting today. PLAN: Agree to decrease the rate of the feeding formula. Check residuals. If the patient develops any nausea or vomiting again, then consider giving her Reglan. If there is no significant residual, then the feeding can be slowly advanced to the goal. Samuel Muse MD SA/DA /[id number]
[2018-10-24] VITALS (8 sets, daily range): BP systolic 80–98; BP diastolic 40–53
--- NOTE | 2018-10-24 00:05 | NUR ---
WALKING ROUNDS MADE, PATIENT OBSERVED SOUNDLY ASLEEP WITHOUT RESPIRATORY DISTRESS. SHE'S EASY TO AROUSE, SHE DENIES PAIN. CALL LIGHT WITHIN EASY REACH, SHE'S INSTRUCTED TO CALL FOR ASSISTANCE NEEDED.
[2018-10-24] MEDS: IPRATROPIUM BROMIDE 0.02% 2.5 ML NEB NEB SCH ×4 (02:05→19:00)
[2018-10-24] MEDS: ALBUTEROL SULF 0.083% NEB SOLN 3 ML NEB NEB SCH ×6 (02:05→22:40)
[2018-10-24] MEDS: LEVOFLOXACIN 500MG/D5W 100ML IV SCH (02:50)
--- NOTE | 2018-10-24 03:50 | NUR ---
PATIENT ASSISTED TO THE BEDSIDE COMMODE TO VOID, SHE'S NOW BACK IN BED WITHOUT RESPIRATORY DISTRESS AND SHE DENIES PAIN. CALL LIGHT WITHIN EASY REACH, SHE'S INSTRUCTED TO CALL FOR ASSISTANCE NEEDED.
--- NOTE | 2018-10-24 06:34 | NUR ---
BLOOD PRESSURE REASSESSED MANUALLY WITH READING OF 90/58, NO ACUTE DISTRESS OBSERVED. CALL PLACED OUT TO DR MELTON REGARDING THE LOW BLOOD PRESSURE, AWAITING CALL BACK FROM THE DOCTOR. G-TUBE SITE CLEANSE, GAUZE APPLIED TO THE SITE.
[2018-10-24 06:45] LABS: BASOPHILS % 0.3 % (0.0-1.0); EOSINOPHILS % 0.2 % (0.0-6.0); HEMATOCRIT 27.9 % (34.2-44.1); HEMOGLOBIN 9.2 g/dL (12.0-16.0); LYMPHOCYTES # (AUTO) 1.1 (1.0-3.2); LYMPHOCYTES % 10.1 % (18.0-39.1); MEAN CORPUSCULAR HEMOGLOBIN 31.9 pg (28-32); MEAN CORPUSCULAR VOLUME 96.9 fL (81-99); MONOCYTES # (AUTO) 1.4 (0.2-0.8); NEUTROPHILS # (AUTO) 8.3 (2.1-6.9); NEUTROPHILS % 75.1 % (38.7-80.0); PLATELET COUNT 152 x10e3/uL (140-360); RED BLOOD COUNT 2.88 x10e6/uL (3.6-5.1); RED CELL DISTRIBUTION WIDTH 15.2 % (11.7-14.4)
--- NOTE | 2018-10-24 06:45 | NUR ---
SPOKE WITH DR MELTON REGARDING THE PATIENT'S LOW BLOOD PRESSURE, ORDER RECEIVED TO HOLD SCHEDULE BLOOD PRESSURE MEDICATIONS FOR SYSTOLIC BLOOD PRESSURE LESS THAN 90.
[2018-10-24 07:08] LABS: ANION GAP 12.5 mmol/L (8-16); CALCIUM 8.4 mg/dL (8.4-10.2); CREATININE, SERUM 1.25 mg/dL (0.57-1.11); POTASSIUM 3.5 mmol/L (3.5-5.1)
[2018-10-24] MEDS: INSULIN REGULAR, HUMAN 100 UNIT/1 ML 3ML VIAL SQ SCH ×4 (07:30→21:00)
--- NOTE | 2018-10-24 07:30 | NUR ---
Bedside change of shift report received from ANDREIA Connell. Pt is resting with HOB at 40, resp even and unlabored, iv infusing well to right wrist sts, "I am still coughing a lot and vomiting. TF is running at 20 cc/hr at this time.
[2018-10-24] MEDS: LISINOPRIL 2.5 MG TAB PO SCH (09:00)
[2018-10-24] MEDS: ATENOLOL 50 MG TAB PO SCH (09:00)
[2018-10-24] MEDS: PANTOPRAZOLE 40 MG 10ML VIAL IV SCH ×2 (09:00→16:02)
[2018-10-24] MEDS: ATORVASTATIN 20 MG TAB PO SCH (10:16)
[2018-10-24] MEDS: GABAPENTIN 300 MG CAP PO SCH ×2 (10:16→16:02)
[2018-10-24] MEDS: FOLIC ACID 1 MG TAB PO SCH (10:16)
[2018-10-24] MEDS: ASPIRIN 325 MG TAB PO SCH ×2 (10:20→16:02)
--- NOTE | 2018-10-24 10:32 | NUR ---
Pt is ambulating with PT at this time.
[2018-10-24] MEDS: D5.45%NS/KCL 20MEQ 1,000 ML IV SCH (11:57)
--- NOTE | 2018-10-24 14:01 | NUR ---
SPOKE WITH EDGARDO WITH [facility] ABOUT REFERRAL, STATES NEEDS UPDATED PT NOTES, FAXED TO HIM. PT IS HAVING TROUBLE WITH TUBE FEEDS AND MAY NEED A DIFFERENT FORMULA PER DEBBI IN DIETARY. STILL PENDING AUTH.
--- NOTE | 2018-10-24 16:48 | Diagnostic Imaging Report ---
Abdomen, 2 view. History: Not tolerating tube feedings. Findings: G-tube overlies the left upper quadrant of the abdomen. There is contrast outlining the colon from a prior modified barium swallow performed on 10/15/2018. The intestinal gas pattern is nonobstructive. No free peritoneal air. There no masses or abnormal calcifications. The osseous structures are intact. IMPRESSION: No acute abdominal abnormality. Signed by: Dr. Christos Salter DO on 10/24/2018 4:45 PM
--- NOTE | 2018-10-24 17:14 | NUR ---
Second attempt to contact Dr Samuels regarding pt's gastric residual greater than 70cc, pt c/o of indigestion and very uncomfortable. MD returned call but hanged up before this nurse picked up the phone. Will call attending at this time.
--- NOTE | 2018-10-24 17:44 | NUR ---
Dr Collier made aware of pt's increased gastric residual greater than 70ml/hr, infusing per patient's request at 20ml/hr and pt is complaining of indigestion, uncomfortable and gastric tube is leaking around insertion site, order to give reglan 2mg/iv every 8hr scheduled received at this time.
--- NOTE | 2018-10-24 18:58 | Progress Note ---
DATE: 10/24/2018 GI Progress Report. SUBJECTIVE: The patient reports another episode of nausea followed by vomiting. The patient vomited mostly the feeding formula. Admits to some pain around the G-tube site. Otherwise, having regular BMs. REVIEW OF SYSTEMS: GENERAL: No fever or chills. CVS: No chest pain or palpitations. RESPIRATORY: No cough or expectoration. MEDICATIONS: Reviewed as per MAR. The patient has been started on metoclopramide. She is also on other medications. PHYSICAL EXAMINATION: VITAL SIGNS: Temperature 99.3, pulse 87, respirations 20, blood pressure 91/53 to 88/40, oxygen saturation 99% on 3 L of nasal cannula. GENERAL: Obese body habitus, not in any acute distress. HEENT: Oral mucosa is moist. Anicteric sclerae. ABDOMEN: Protuberant belly, soft, mild tenderness around the G-tube site, mild erythema. Bowel sounds present. No rebound, rigidity or any guarding. LABORATORY DATA: WBC 11.09, hemoglobin 9.2 which is down from 10.3, hematocrit 27.9, and platelet count 152. Sodium 134, potassium 3.5, chloride 96, bicarb 29, BUN 23, creatinine 1.25, and glucose 125. Urinalysis showed RBC 6 to 10 per high-power field, WBC more than 50 per high-power field. This urinalysis was done on 10/09/2018. Urine culture showed 61070 to 51717 mixed ok contamination. Blood culture, no growth after 5 days. An abdominal x-ray showed no acute abnormality. G-tube overlies the left upper quadrant of the abdomen. There is a contrast outlining the colon from a prior modified barium swallow performed on 10/15/2018. Intestinal gas pattern is nonobstructive. No free peritoneal air. ASSESSMENT: The patient is on G-tube feeding, which she is not tolerating it very well at this time. PLAN: Continue checking the feeding residuals. Agree to start metoclopramide as a prokinetic agent. Keep the G-tube feeding at a minimum rate and advance slowly to the goal as tolerated. I will continue to monitor her clinically. Continue antibiotic which will also take care of any abdominal cellulitis around the G-tube feeding. Samuel Muse MD SA/DA /[id number]
--- NOTE | 2018-10-24 19:25 | NUR ---
Bedside change of shift report given to ANDREIA Mercado. Pt is lying in bed with HOB elevated at 40 degree angle. Peripheral IV infusing well to right forearm. Informed pt tube feeds will be increased to 30 states, "You can try, I will let you know if I start feeling indigestion." tube feeds increased to 30 ml at this time. Pt's family visiting at this time. Pt is in no acute distress noted, resp even and unlabored, AAOx3.
--- NOTE | 2018-10-24 20:27 | NUR ---
DR ORUSE CALLED AT THIS TIME AND ANSWERING SERVICE REACHED. AWAITING CALL BACK FOR ORDERS REGARDING BP.
--- NOTE | 2018-10-24 20:35 | NUR ---
DR. ROUSE RETURNED CALL, NEW ORDER FOR NS 500ML BOLUS TO BE GIVEN.
[2018-10-24] MEDS ORDERED: SODIUM CHLORIDE 0.9% 500ML 500 ML ONE (20:52)
--- NOTE | 2018-10-24 21:42 | NUR ---
PT RESTING COMFORTABLY IN BED AT THIS TIME. PT DENIES PAIN. MEPILEX PLACED AT THIS TIME PT HAS REDNESS AT GLUTEAL FOLD BELOW SACRUM. BILATERAL HEEL PROTECTOR MEPILEX PLACED AT THIS TIME PREVENTATIVE. PT APPEARS IN NO DISTRESS AT THIS TIME. BED IS IN LOW LOCKED POSITION AND CALL LIGHT IS IN REACH. PT EDUCATED TO USE THE CALL LIGHT TO USE BATHROOM OR ANY ASSISTANCE NEEDED.
[2018-10-24] MEDS ORDERED: SODIUM CHLORIDE 0.9% 500ML 500 ML IV ONE (21:45)
[2018-10-24] MEDS ORDERED: METOCLOPRAMIDE HCL 10 MG/2ML VIAL IV SCH (22:00)
--- NOTE | 2018-10-24 23:34 | NUR ---
DR. ROUSE ANSWERING SERVICE CALLED AT THIS TIME. AWAITING CALL BACK FOR ORDERS IN REGARDS TO PT BP. BP IS CURRENTLY 71/45. BP RECHECKED MANUALLY AND IS 72/54.
[2018-10-24] MEDS ORDERED: SODIUM CHLORIDE 0.9% 1000ML 1,000 ML IV SCH (23:45)
[2018-10-24] MEDS ORDERED: ACETAMINOPHEN 325 MG TAB PO ONE (23:45)
--- NOTE | 2018-10-24 23:45 | NUR ---
NEW ORDERS RECEIVED FROM DR. ROUSE, SEE ORDER HISTORY. WILL CONTINUE TO MONITOR PT CLOSELY.
[2018-10-24] MEDS ORDERED: CEFEPIME HCL 1 GM VIAL IV SCH (23:51)
[2018-10-25] VITALS (10 sets, daily range): BP systolic 72–103; BP diastolic 43–93
[2018-10-25 00:18] LABS: BASOPHILS % 0.2 % (0.0-1.0); EOSINOPHILS % 0.1 % (0.0-6.0); HEMATOCRIT 27.7 % (34.2-44.1); HEMOGLOBIN 9.3 g/dL (12.0-16.0); LYMPHOCYTES # (AUTO) 1.4 (1.0-3.2); LYMPHOCYTES % 12.5 % (18.0-39.1); MEAN CORPUSCULAR HEMOGLOBIN 32.1 pg (28-32); MEAN CORPUSCULAR HGB CONC 33.6 g/dL (31-35); MEAN CORPUSCULAR VOLUME 95.5 fL (81-99); MONOCYTES # (AUTO) 1.5 (0.2-0.8); MONOCYTES % 12.9 % (4.4-11.3); NEUTROPHILS # (AUTO) 8.4 (2.1-6.9); NEUTROPHILS % 73.4 % (38.7-80.0); PLATELET COUNT 176 x10e3/uL (140-360); RED CELL DISTRIBUTION WIDTH 14.9 % (11.7-14.4)
[2018-10-25] MEDS ORDERED: CEFEPIME 1GM/NS 0.9% 50 ML 50 ML IV ONE (00:25)
[2018-10-25 00:42] LABS: ALBUMIN 1.9 g/dL (3.5-5.0); ALBUMIN/GLOBULIN RATIO 0.5 (0.8-2.0); ANION GAP 13.5 mmol/L (8-16); CALCIUM 8.1 mg/dL (8.4-10.2); CREATININE, SERUM 1.13 mg/dL (0.57-1.11); POTASSIUM 3.5 mmol/L (3.5-5.1)
[2018-10-25] MEDS: D5.45%NS/KCL 20MEQ 1,000 ML IV SCH ×3 (00:50→14:29)
[2018-10-25] MEDS: METOCLOPRAMIDE HCL 10 MG/2ML VIAL IV SCH ×4 (01:27→23:49)
--- NOTE | 2018-10-25 02:00 | NUR ---
BOLUS 200ML UNTIL COMPLETION. DR. ROUSE CALLED AND UPDATED ON PT STATUS. PT IS RESTING IN BED. APPEARS IN NO DISTRESS. BP NOTED 81/43. T 99.4. HR 93. RR 18. ORDERS FOR BOLUS 250 ml NS RECEIVED AT THIS TIME.
[2018-10-25] MEDS: ALBUTEROL SULF 0.083% NEB SOLN 3 ML NEB NEB SCH ×6 (02:35→23:25)
[2018-10-25] MEDS: IPRATROPIUM BROMIDE 0.02% 2.5 ML NEB NEB SCH ×4 (02:35→20:10)
[2018-10-25] MEDS ORDERED: SODIUM CHLORIDE 0.9% 500ML 0 ML ONE (02:50)
[2018-10-25] MEDS ORDERED: SODIUM CHLORIDE 0.9% 250ML 250 ML ONE (03:06)
[2018-10-25] MEDS ORDERED: SODIUM CHLORIDE 0.9% 1000ML 1,000 ML IV ONE (03:15)
[2018-10-25] MEDS ORDERED: SODIUM CHLORIDE 0.9% 1000ML 1,000 ML IV SCH (05:30)
[2018-10-25] MEDS ORDERED: LEVOFLOXACIN 500MG/D5W 100ML IV SCH (06:23)
--- NOTE | 2018-10-25 07:00 | NUR ---
Bedside report and rounds done. no s/s of distress
--- NOTE | 2018-10-25 07:11 | Diagnostic Imaging Report ---
Examination: Single AP view of the chest. COMPARISON: 10/08/2018 INDICATION: Fever DISCUSSION: As before, lung volumes are low. Aeration of the lung bases is improved relative to 10/08/2018. No new consolidation. Vascular crowding in the perihilar regions with otherwise stable cardiomediastinal contour. Atherosclerotic calcification of the thoracic aorta. No acute osseous abnormality. IMPRESSION: Low lung volumes with improved aeration of the lung bases relative to 10/08/2018. No new consolidation. Signed by: Dr. Celso Garcia M.D. on 10/25/2018 7:08 AM
[2018-10-25] MEDS ORDERED: CEFEPIME 1GM/NS 0.9% 50 ML 50 ML IV SCH (08:00)
[2018-10-25] MEDS: INSULIN REGULAR, HUMAN 100 UNIT/1 ML 3ML VIAL SQ SCH ×4 (09:45→21:00)
[2018-10-25] MEDS ORDERED: SODIUM CHLORIDE 0.9% 1000ML 1,000 ML ONE (10:21)
[2018-10-25] MEDS: ASPIRIN 325 MG TAB PO SCH ×2 (10:29→17:32)
[2018-10-25] MEDS: ATORVASTATIN 20 MG TAB PO SCH (10:29)
[2018-10-25] MEDS: GABAPENTIN 300 MG CAP PO SCH ×2 (10:29→17:32)
[2018-10-25] MEDS: FOLIC ACID 1 MG TAB PO SCH (10:29)
[2018-10-25] MEDS: PANTOPRAZOLE 40 MG 10ML VIAL IV SCH ×2 (12:40→17:32)
--- NOTE | 2018-10-25 13:00 | NUR ---
PT REFUSED TO WEAR HEEL PROTECTORS THAT WERE PROVIDED. ENCOURAGED PT TO KEEP A PILLOW UNDER LEGS TO ELEVATE HEELS OFF OF MATTRESS SURFACE.
--- NOTE | 2018-10-25 13:53 | Consultation ---
DATE OF CONSULTATION: 10/25/2018 Thank you so much for asking me to see this patient. HISTORY OF PRESENT ILLNESS: This is a patient, who has been here for 16 days. She comes in with shortness of breath and cough. The patient was diagnosed with pneumonia. The patient also diagnosed with aspiration pneumonia. The patient does have history of hypertension, diabetes mellitus, obesity, UTI, hyperlipidemia, vocal cold paralysis. The patient was admitted with shortness of breath and cough. She is telling me when she first came here, she had pneumonia, which did improve since admission, but yesterday, she had fever, but currently she is lying in bed comfortably and she has no complaints. She has obesity, has G-tube feeding tube. PAST MEDICAL HISTORY: Hypertension; diabetes mellitus; atrial fibrillation, on Xarelto; vocal cord paralysis. PAST SURGICAL HISTORY: As above. ALLERGIES: NKA. SOCIAL HISTORY: There is no smoking, drug abuse, or alcohol abuse. FAMILY HISTORY: Otherwise noncontributory. REVIEW OF SYSTEMS: At the present time, HEENT: Negative. PULMONARY: Negative. CARDIAC: Negative. : Negative. GI: Negative. SKIN: There is no rash. At the present time, 14-point reviewed except that she is extremely weak, but she denies any. She said she still feels aspiration occasionally. Right now, there is no fever or chills. LABORATORY DATA: Reviewed. Since admission, white count 6.57, now is 11.39. Sodium 132, potassium 3.5, creatinine 1.13. Her blood culture is negative for 5 days. Urine culture was negative. Chest x-ray, which was done on October 25 showed low lung volumes with improved aeration in lung bases, no new consolidation. MEDICATIONS: Her medication list reviewed. She is on Protonix, Neurontin, Lipitor, levofloxacin, Tylenol, guaifenesin, cefepime. PHYSICAL EXAMINATION: GENERAL: She is currently alert, oriented, does not seem to be in acute distress. VITAL SIGNS: Stable. Currently afebrile. HEENT: Normocephalic. Does not appear icteric. NECK: Supple. No JVD. No lymphadenopathy. No thyromegaly. CHEST: Clear bilateral. She has some crackles at the bases. HEART: S1, S2. No S3, S4, or murmur. ABDOMEN: Soft. Bowel sounds present. No tenderness. No hepatosplenomegaly. EXTREMITIES: No edema. SKIN: No rash. JOINTS: There is no erythema. IMPRESSION: 1. Recurrent aspiration, clinically seems to be stable. 2. Fever yesterday, clinically seems stable. I will suggest to discontinue antibiotic. Reassess. We will follow with you. 3. Aspiration. 4. Anemia. 5. Debility. Consider PT, OT . We will follow. MD PARAM Peñaloza/DA /[id number]
--- NOTE | 2018-10-25 15:38 | NUR ---
CALLED AND SPOKE WITH ELDA AT [facility], PT ACCEPTED TO ROOM 37B UNDER SUMAYA MCKEON AND RTF ON PACKET AT [facility]. ALSO NOTIFIED CM UPDATE.
[2018-10-25] MEDS: ONDANSETRON HCL 4 MG ORAL DISINTEGRATING TAB PO PRN (18:32)
[2018-10-25] MEDS: GUAIFENESIN/DEXTROMETHORPHAN LIQD 5 ML UDC PO PRN (18:33)
--- NOTE | 2018-10-25 19:25 | NUR ---
PT RESTING COMFORTABLY IN BED. RESPIRATIONS REGULAR AND EVEN AND PT APPEARS IN NO DISTRESS. PT STATES HEADACHE PAIN 5/10 AT THIS TIME. PT HAS BELONGINGS IN REACH, BED IS IN LOW LOCKED POSITION WITH CALL LIGHT IN REACH WITH BED ALARM ON.
[2018-10-25] MEDS ORDERED: DIATRIZOATE MEGL/DIATRIZOA SOD 30 ML BTL PO ONE (19:56)
--- NOTE | 2018-10-25 20:35 | Diagnostic Imaging Report ---
Abdomen/KUB INDICATION: ^VERIFY PEG TUBE PLACEMENT ^[id number] ^1997 ^Y COMPARISON: Abdomen x-ray 10/24/2018. FINDINGS: Portable, supine image obtained at 2017 hours. Water-soluble contrast was injected through the percutaneous gastrostomy tube. Medical Devices: Percutaneous gastrostomy overlies the greater curvature of the stomach. Bowel: Enteric contrast fills the stomach. There is contrast within the transverse colon from previous radiographic procedure. No dilated bowel loops. Free air: None Calcifications: None Organomegaly: None Lung bases: The heart is mildly enlarged. Left basilar atelectasis. Small left pleural effusion cannot be excluded Bones: Stable degenerative changes of the spine. IMPRESSION: Percutaneous gastrostomy is in appropriate position. No evidence of leak. Signed by: Dr. Rodger Pritchard MD on 10/25/2018 8:31 PM
--- NOTE | 2018-10-25 23:00 | NUR ---
gastric residual 60ml.
[2018-10-26] VITALS (8 sets, daily range): BP systolic 90–121; BP diastolic 48–58
[2018-10-26] MEDS: IPRATROPIUM BROMIDE 0.02% 2.5 ML NEB NEB SCH ×4 (01:00→19:30)
[2018-10-26] MEDS: ALBUTEROL SULF 0.083% NEB SOLN 3 ML NEB NEB SCH ×6 (03:00→22:55)
[2018-10-26] MEDS: GUAIFENESIN/DEXTROMETHORPHAN LIQD 5 ML UDC PO PRN (03:37)
[2018-10-26] MEDS: D5.45%NS/KCL 20MEQ 1,000 ML IV SCH ×2 (03:54→17:48)
[2018-10-26] MEDS: METOCLOPRAMIDE HCL 10 MG/2ML VIAL IV SCH ×3 (06:00→21:46)
--- NOTE | 2018-10-26 07:00 | NUR ---
received am report from rn. pt is resting comfortably in bed, no s/s of distress. helped the pt ambulate to the bedside commode, pt had 1 bm. assisted pt back to bed. bed in lowest position, call light within reach, side rails up.
--- NOTE | 2018-10-26 09:50 | NUR ---
there are active orders for vital af tube feedings, dietary brought glucerna at breakfast. called dietary and informed them of the change and asked them to bring correct tube feeding.
[2018-10-26] MEDS: ASPIRIN 325 MG TAB PO SCH ×2 (09:53→17:48)
[2018-10-26] MEDS: FOLIC ACID 1 MG TAB PO SCH (09:53)
[2018-10-26] MEDS: GABAPENTIN 300 MG CAP PO SCH ×2 (09:54→17:48)
[2018-10-26] MEDS: ATORVASTATIN 20 MG TAB PO SCH (09:54)
[2018-10-26] MEDS: PANTOPRAZOLE 40 MG 10ML VIAL IV SCH ×2 (09:56→17:48)
[2018-10-26] MEDS: INSULIN REGULAR, HUMAN 100 UNIT/1 ML 3ML VIAL SQ SCH ×4 (10:03→21:00)
--- NOTE | 2018-10-26 10:30 | NUR ---
dietary brought vital af feeding. hung new tubing with feeding and started feeding at a rate of 10 ml/hr. goal is 50 ml/hr. will continue to monitor pt.
--- NOTE | 2018-10-26 12:23 | Progress Note ---
DATE: 10/26/2018 Cardiology Progress Note SUBJECTIVE: No major events overnight. OBJECTIVE: VITAL SIGNS: Temperature afebrile, pulse 87, respiratory rate 20, blood pressure 101/52, and saturating 97% on nasal cannula. GENERAL: Elderly white female, in no acute distress. CARDIOVASCULAR: Regular rate and rhythm. No murmurs, rubs, or gallops. LUNGS: Coarse breath sounds in bilateral bases. ABDOMEN: Soft, nontender, nondistended. PEG tube in place. NEURO AND PSYCH: Alert and oriented. INPATIENT MEDICATIONS: Reviewed. LABORATORY DATA: Reviewed. White count is 11.3, albumin is 1.9. ASSESSMENT AND PLAN: 1. Non-ST elevation myocardial infarction. 2. Aspiration pneumonia. 3. Diabetes. 4. Hypertension. 5. Hyperlipidemia. 6. History of atrial fibrillation. PLAN: Had elevated troponins on admission. Had coronary angiography showing nonobstructive CAD. Since then, hospital course has been complicated by issues of aspiration, requiring PEG tube placement and recurrent pneumonias, which is being managed by Primary team and Infectious Disease. She is stable from cardiovascular standpoint. Anticoagulation on hold, given ongoing issues with oral intake and procedures. Resume her home Xarelto once clinically stable. Thank you for this consult. We will continue to follow. MD SHAYLA Do/DA /[id number]
--- NOTE | 2018-10-26 12:53 | NUR ---
pt tolerating vital af feeding well. increased rate to 15ml/hr. will continue to monitor pt
--- NOTE | 2018-10-26 16:27 | NUR ---
IMM LETTER EXPLAINED TO PT. PT VERBALIZED UNDERSTANDING. IMM LETTER SIGNED. COPY TO PT AND COPY TO CHART.
--- NOTE | 2018-10-26 16:28 | NUR ---
DC PLAN: TRANSFER TO [facility] IN AM PER PT.
--- NOTE | 2018-10-26 17:30 | NUR ---
pt is tolerating tube feeding. increased rate to 25ml/hr. will continue to monitor pt.
--- NOTE | 2018-10-26 19:10 | NUR ---
Completed bedside report with morning nurse. Pt alert and orient to name. Lying in bed HOB 90 degrees. 20g IV right FA in place. PEG tube in place, vital 1.5 @25ml/hr. O2 @2L via NC. Denies pain at this time. Call mcgraw within reach. Will continue to monitor.
[2018-10-27] VITALS (8 sets, daily range): BP systolic 95–140; BP diastolic 52–61
[2018-10-27] MEDS: IPRATROPIUM BROMIDE 0.02% 2.5 ML NEB NEB SCH ×5 (01:00→23:04)
[2018-10-27] MEDS: ALBUTEROL SULF 0.083% NEB SOLN 3 ML NEB NEB SCH ×6 (02:49→23:04)
[2018-10-27] MEDS: METOCLOPRAMIDE HCL 10 MG/2ML VIAL IV SCH ×3 (05:55→21:42)
[2018-10-27] MEDS: D5.45%NS/KCL 20MEQ 1,000 ML IV SCH ×2 (05:55→19:23)
--- NOTE | 2018-10-27 06:24 | NUR ---
Pt lying in bed HOB 75 degrees. O2 @2L via NC. Denies pain at this time. Call mcgraw within reach.
--- NOTE | 2018-10-27 07:15 | NUR ---
Patient alert and responsive, PEG tube in place and running at ordered rate, HOB elevated at 45 degrees, rounds by attending this morning and wants to observe patient for this weekend, no distress at this time and will monitor
[2018-10-27] MEDS: INSULIN REGULAR, HUMAN 100 UNIT/1 ML 3ML VIAL SQ SCH ×4 (07:30→21:00)
[2018-10-27] MEDS: ASPIRIN 325 MG TAB PO SCH ×2 (08:00→17:27)
[2018-10-27 08:19] LABS: BASOPHILS % 0.1 % (0.0-1.0); EOSINOPHILS # (AUTO) 0.1 (0.0-0.4); EOSINOPHILS % 1.2 % (0.0-6.0); HEMATOCRIT 26.5 % (34.2-44.1); HEMOGLOBIN 8.5 g/dL (12.0-16.0); LYMPHOCYTES % 14.6 % (18.0-39.1); MEAN CORPUSCULAR HEMOGLOBIN 30.8 pg (28-32); MEAN CORPUSCULAR HGB CONC 32.1 g/dL (31-35); MONOCYTES # (AUTO) 0.8 (0.2-0.8); MONOCYTES % 11.7 % (4.4-11.3); NEUTROPHILS # (AUTO) 4.9 (2.1-6.9); NEUTROPHILS % 71.5 % (38.7-80.0); PLATELET COUNT 186 x10e3/uL (140-360); RED BLOOD COUNT 2.76 x10e6/uL (3.6-5.1)
[2018-10-27 08:37] LABS: ALANINE AMINOTRANSFERASE 29 IU/L (0-55); ALBUMIN 1.7 g/dL (3.5-5.0); ALBUMIN/GLOBULIN RATIO 0.5 (0.8-2.0); ALKALINE PHOSPHATASE 90 IU/L (40-150); ANION GAP 11.7 mmol/L (8-16); BLOOD UREA NITROGEN 5 mg/dL (7-26); BUN/CREATININE RATIO 8 (6-25); CALCIUM 7.9 mg/dL (8.4-10.2); CARBON DIOXIDE 22 mmol/L (22-29); CHLORIDE 107 mmol/L (98-107); CREATININE, SERUM 0.65 mg/dL (0.57-1.11); EST GLOMERULAR FILTRATION RATE > 60 ML/MIN (60-); GLUCOSE 154 mg/dL (74-118); MAGNESIUM 1.3 MG/DL (1.3-2.1); POTASSIUM 3.7 mmol/L (3.5-5.1); SODIUM 137 mmol/L (136-145)
[2018-10-27] MEDS: PANTOPRAZOLE 40 MG 10ML VIAL IV SCH ×3 (09:00→17:27)
[2018-10-27] MEDS: ATORVASTATIN 20 MG TAB PO SCH (09:06)
[2018-10-27] MEDS: FOLIC ACID 1 MG TAB PO SCH (09:06)
[2018-10-27] MEDS: GABAPENTIN 300 MG CAP PO SCH ×2 (09:06→17:27)
[2018-10-27] MEDS: GUAIFENESIN/DEXTROMETHORPHAN LIQD 5 ML UDC PO PRN (11:15)
--- NOTE | 2018-10-27 11:16 | NUR ---
Patient c/o some cough, medicated per orders, residual checked and at 50cc, tube feeding on hold at this time, will monitor. OOB sitting on chair by bed side.
--- NOTE | 2018-10-27 12:10 | NUR ---
Patient assisted back to bed after walking with PT. Residual at 15 CC and tube feed restarted at this time, will monitor.
--- NOTE | 2018-10-27 13:03 | Progress Note ---
DATE: 10/27/2018 Cardiology Progress Note SUBJECTIVE: The patient endorses some shortness of breath, especially when she exerts. Denies any chest pain. OBJECTIVE: VITAL SIGNS: Temperature 97.9, pulse 79, respiratory rate 20, blood pressure 118/55, oxygen saturation 98% on room air. GENERAL: Alert and oriented x3. Resting comfortably on the side of the bed. Does not appear to be in any acute distress. LUNGS: Clear to auscultation throughout. No wheezing, no rhonchi, or crackles. CARDIOVASCULAR: Regular rate and rhythm. No murmurs, no gallops. ABDOMEN: Soft, nontender. PEG tube in place. NEUROLOGICAL: All 12 cranial nerves grossly intact. Alert and oriented. CARDIOVASCULAR MEDICATIONS: Atorvastatin 20 mg p.o. daily, aspirin 325 p.o. b.i.d. LABORATORY DATA: WBC 6.86, hemoglobin 8.5, hematocrit 26.5, platelets 186. Sodium 137, potassium 3.7, BUN 5, creatinine 0.65, GFR greater than 60. IMPRESSION: 1. Non-ST elevation myocardial infarction. 2. Aspiration pneumonia. 3. Diabetes mellitus. 4. Hyperlipidemia. 5. Dyslipidemia. 6. History of atrial fibrillation. PLAN: The patient had elevated troponins on admission, had a coronary angiogram that showed nonobstructive CAD. Since then, her course of hospital has been complicated due to aspiration pneumonia, which likely explains her shortness of breath. She has also required a PEG tube placement. Continue antimicrobial therapy per Infectious Disease and primary team. Her anticoagulation is on hold given ongoing issues with oral intake. We will resume Xarelto once clinically stable. Dictated by Natalya Mcneal, JADEN MD CHRISTOPHER MooreV/DA /[id number]
--- NOTE | 2018-10-27 16:17 | NUR ---
Nutrition Follow-up Note RD Recommendation(s) for Physician: -Rec advancing continuous TF with Vital 1.2 to goal rate of 50mL/hr as tolerated (1440kcal, 72g protein, 966mL water) -Water flushes of 50mL water q 4hr; additional water per MD discretion -Check labs, GI tolerance, weight daily -Increase dosage/ frequency of Reglan to promote digestion -Only hold TF if gastric residual >250mL -If pt continues to have nausea, vomiting or abdominal cramping, rec allergy testing and switching to dairy-free formula if tested with high intolerance of lactose/ milk Plan of Care: RD following, monitoring for tolerance and adequacy, TF rec Nutrition reason for involvement: Follow up RD Assessment 10/27 - Discussed case with ANDREIA Cee.TF is currently running with Vital AF at 25ml/hr. Pt still complains of some nausea and cough. Pt reported feeling better without any abdominal cramping. Gastric residual between 50-70mL with Reglan. Communicated RD rec with RN. Will continue to monitor and follow. 10/23 Pt was discussed during AM rounds. Night nurse held TF as pt was complaining of being full and bloated. Gastric residual was between 55-70mL. Communicated with Day nurse to not hold TF unless gastric residual >250mL. Obtained order from Dr. Glaser for Reglan 10mg q 6hr. Visited pt in the room. TF was turned down to 20ml/hr. Pt aware that this is the only diabetic standard formula available in this facility; also explained the role of Reglan in promoting gastric motility. Unable to determine if pt is truly not tolerating the formula as we are not able to reach goal rate of 50mL/hr and gastric residual has been low. Communicated RD recommendation with ANDREIA Ballard. Will continue to monitor and follow. 10/20 Visited pt in the room. TF was running at 20mL/hr during my visit. Pt was complaining of abdominal pain with nausea. LBM 10/15. Pt stated my BM is irregular. Per ANDREIA Madison, pt was having 30 40mL gastric residual today. Reglan has been ordered to promote digestion. Pt also reported milk intolerance (not tested with milk allergy before). Pt stated I get stomach cramping with dairy. Explained that Glucerna is suitable for pt with lactose intolerance. RD rec to only hold TF if gastric residual >250mL. If symptoms persist, please obtain KUB. Will continue to monitor and follow. 10/18 PEG was placed. CAR TRIMMER was following for NMES. Obtained telephone order from Dr. Mcfadden to start continuous TF. Notified RN of TF rec. Will continue to monitor and follow. (10/16) Pt was discussed during AM rounds. MBS on 10/15 demonstrating penetration and aspiration. Plan for PEG placement by GI. Followed by CAR TRIMMER for NMES. LBM- 10/15. No GI complains reported. Will communicate TF rec with RN. Will continue to monitor and follow. (10/10) Chart reviewed. Labs and meds reviewed. 72yo F, who was admitted for fever and chills after procedure for vocal cord paralysis. Visited pt in the room. 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 No complains of nausea or vomiting. LBM 10/09. Pt complained of hunger. Currently NPO. Will continue to monitor and follow. Principal Problems/Diagnoses: Aspiration PNA, NSTEMI PMH: hypertension, diabetes, anemia, and hyperlipidemia GI: abdomen soft, non-tender, round, LBM 10/27 Skin: no pressure wound noted Labs: (10/27) BUN 5 L, Glucose 156 H, Ca 7.9 L 10/20 Na 134 L, Glucose 132 H, Ca 8.3 L (10/18) K 3.3 L, Ca 7.9 L (10/16) K 2.4 L, BUN 33 H, Glucose 170 200 H, Mg 2.2 H Meds: reglan, folic acid, lipitor, protonix, KCl Ht: 60in Wt: 200lb; 191lb; 203lb BMI: 39.1kg/m2 IBW: 100lb Malnutrition Evaluation (10/10/2018) The patient does not meet criteria for a specified degree of malnutrition at this time. Will re-evaluate at follow-up as appropriate. Nutrition Prescription (Diet Order): Vital AF 1.2 @50mL/hr Estimated Nutritional Needs: Calories: 1150 1380kcal (25-30kcal/kg/d) Weight used: IBW Protein: 69 115g (1.5-2.5g/kg/d) Weight used: IBW Diet Adequacy: Not meeting calorie needs, Not meeting protein needs Diet Education Needs Assessment: Diet education not indicated. 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 Goal: Patient will meet 75-100% of estimated needs by follow up Progress: Some progress Interventions: Composition, Rate, Route Monitoring/Evaluation: Total energy intake, Total protein intake, Formula/Solution, Weight change, Labs, Gastric tolerance Signed: Irene Torrez MS, RD, LEROY
--- NOTE | 2018-10-27 19:00 | NUR ---
Bedside report completed with morning nurse. Pt alert and orient to name. Sitting in bed HOB 90 degrees. 20g IV right FA running D5 0.5NS/KCL 20meq @75ml/hr. PEG tube in place, vital 1.5 @25ml/hr. O2 @2L via NC. Denies pain at this time. Call mcgraw within reach. Will continue to monitor.
[2018-10-28] VITALS (8 sets, daily range): BP systolic 98–124; BP diastolic 51–58
[2018-10-28] MEDS: ALBUTEROL SULF 0.083% NEB SOLN 3 ML NEB NEB SCH ×6 (03:00→23:15)
[2018-10-28] MEDS: METOCLOPRAMIDE HCL 10 MG/2ML VIAL IV SCH ×3 (06:00→22:00)
[2018-10-28] MEDS: IPRATROPIUM BROMIDE 0.02% 2.5 ML NEB NEB SCH ×4 (06:30→23:15)
[2018-10-28] MEDS: INSULIN REGULAR, HUMAN 100 UNIT/1 ML 3ML VIAL SQ SCH ×4 (07:55→21:00)
[2018-10-28] MEDS: ASPIRIN 325 MG TAB PO SCH (08:20)
[2018-10-28] MEDS: ATORVASTATIN 20 MG TAB PO SCH (08:20)
[2018-10-28] MEDS: FOLIC ACID 1 MG TAB PO SCH (08:20)
[2018-10-28] MEDS: D5.45%NS/KCL 20MEQ 1,000 ML IV SCH (08:20)
[2018-10-28] MEDS: GABAPENTIN 300 MG CAP PO SCH ×2 (08:22→17:11)
[2018-10-28] MEDS: PANTOPRAZOLE 40 MG 10ML VIAL IV SCH ×2 (10:20→17:11)
--- NOTE | 2018-10-28 13:42 | Progress Note ---
DATE: 10/28/2018 Cardiology Progress Note SUBJECTIVE: The patient reports that she feels well, she has no complaints; however, she does have some issues with postnasal drainage, especially at night. Denies any chest pain or shortness of breath. OBJECTIVE: VITAL SIGNS: Temperature 98.1, pulse 78, respiratory rate 20, blood pressure 103/51, oxygen saturation 98% on 2 L nasal cannula. GENERAL: Alert and oriented x3, resting comfortably in the bed, does not appear to be in any acute distress. LUNGS: Clear to auscultation throughout. No wheezing. No rhonchi or crackles. CARDIOVASCULAR: Regular rate and rhythm. No murmurs, no gallops. ABDOMEN: Rounded, nontender. PEG tube be in place. NEUROLOGICAL: Cranial nerves grossly intact. CARDIOVASCULAR MEDICATIONS: Atorvastatin 20 mg p.o. daily, aspirin 325 p.o. b.i.d. LABS: No new labs today. IMPRESSION: 1. Non-ST elevation myocardial infarction. 2. Aspiration pneumonia. 3. Diabetes mellitus. 4. Hyperlipidemia. 5. History of atrial fibrillation. PLAN: This patient had elevated troponins on this admission and had a coronary angiogram to follow that showed nonobstructive CAD. Continue with the above-listed cardiac medications. Dosage of aspirin adjusted. However, her course of hospitalization has been complicated due to aspiration pneumonia and for this reason, she has required to have a PEG tube placed. Continue with antimicrobial therapy per Infectious Disease and primary team. Her anticoagulation has been on hold given her ongoing issues with oral intake; however, at this time, we are going to resume Xarelto for she is clinically stable. Dictated by Natalya Mcneal, JADEN MD CHRISTOPHER MooreV/DA /[id number]
[2018-10-28] MEDS: RIVAROXABAN 20 MG TABLET PO SCH (17:12)
--- NOTE | 2018-10-28 17:37 | NUR ---
patient resting in bed, tolerating tube feeding 35cc/hr,Bowel sound + all 4q, not in any distress
--- NOTE | 2018-10-28 19:20 | NUR ---
Report completed with morning nurse. Pt alert and orient to name. Sitting in bed HOB 90 degrees. 22g IV right FA running D5 0.45NS/KCL 20meq @75ml/hr. PEG tube in place, vital 1.5 @35ml/hr. O2 @2L via NC. Denies pain at this time. Call mcgraw within reach. Will continue to monitor.
[2018-10-28] MEDS: GUAIFENESIN/DEXTROMETHORPHAN LIQD 5 ML UDC PO PRN (23:10)
[2018-10-29] VITALS (7 sets, daily range): BP systolic 113–126; BP diastolic 56–62
[2018-10-29] MEDS: D5.45%NS/KCL 20MEQ 1,000 ML IV SCH ×2 (03:00→16:13)
[2018-10-29] MEDS: ALBUTEROL SULF 0.083% NEB SOLN 3 ML NEB NEB SCH ×6 (03:00→23:23)
[2018-10-29] MEDS: METOCLOPRAMIDE HCL 10 MG/2ML VIAL IV SCH ×3 (06:00→21:53)
--- NOTE | 2018-10-29 06:55 | NUR ---
Assisted Pt to bed from recliner. Denies pain at this time. PEG tube patent. Resp even and unlabored, 18. Call mcgraw within reach.
[2018-10-29] MEDS: INSULIN REGULAR, HUMAN 100 UNIT/1 ML 3ML VIAL SQ SCH ×4 (07:30→21:53)
[2018-10-29] MEDS: IPRATROPIUM BROMIDE 0.02% 2.5 ML NEB NEB SCH ×4 (07:34→23:23)
--- NOTE | 2018-10-29 07:41 | NUR ---
PATIENT IS AWAKE AND IN STABLE CONDITION WITH NO S/S OF RESPIRATORY DISTRESS. NO PAIN VOICED. PATIENT STATED SHE HAD A BM THIS MORNING. TUBE FEEDING INFUSING AT 40CC/HR. IV FLUIDS INFUSING. WALKER PRESENT IN ROOM FOR PATIENT. BED ALARM ON. CALL LIGHT IS WITHIN REACH, PATIENT INSTRUCTED TO CALL FOR ASSISTANCE NEEDED.
[2018-10-29] MEDS ORDERED: ASPIRIN 325 MG TAB PO SCH (09:00)
[2018-10-29] MEDS: GUAIFENESIN/DEXTROMETHORPHAN LIQD 5 ML UDC PO PRN ×2 (09:08→16:13)
[2018-10-29] MEDS: FOLIC ACID 1 MG TAB PO SCH (09:08)
[2018-10-29] MEDS: PANTOPRAZOLE 40 MG 10ML VIAL IV SCH ×2 (09:08→16:13)
[2018-10-29] MEDS: ATORVASTATIN 20 MG TAB PO SCH (09:08)
[2018-10-29] MEDS: GABAPENTIN 300 MG CAP PO SCH (09:08)
[2018-10-29] MEDS ORDERED: CEFEPIME HCL 1 GM VIAL IV SCH (11:45)
[2018-10-29] MEDS: CEFEPIME 1GM/NS 0.9% 50 ML 50 ML IV SCH (12:05)
--- NOTE | 2018-10-29 12:24 | NUR ---
REASSESSED PATIENT'S RESIDUAL RESULT 2CC. ADVANCED PATIENT'S TUBE FEEDING RATE TO 45CC/HR.
[2018-10-29] MEDS: METRONIDAZOLE 500MG/NS 100ML 100 ML IV SCH ×2 (13:01→21:53)
[2018-10-29] MEDS: ONDANSETRON HCL 4 MG ORAL DISINTEGRATING TAB PO PRN (15:05)
[2018-10-29] MEDS: RIVAROXABAN 20 MG TABLET PO SCH (16:13)
--- NOTE | 2018-10-29 18:15 | NUR ---
AUTH MONDAY FOR [facility]. RECEIVED CALL FROM ELDA PAINTER TO UPDATE CLINICALS TO REINITIATE AUTH. UPDATED CLINICALS FAXED TO [facility] @ OFF: [phone] / FAX: [phone]
--- NOTE | 2018-10-29 19:12 | NUR ---
PATIENT IS RESTING IN BED- IN STABLE CONDITION WITH NO S/S OF RESPIRATORY DISTRESS. NO PAIN VOICED. TUBE FEEDING CURRENTLY INFUSING AT 45CC/HR. PATIENT HAD 6CC OF RESIDUAL FOR THE WHOLE DAY SHIFT. BED ALARM ON. CALL LIGHT IS WITHIN REACH, PATIENT INSTRUCTED TO CALL FOR ASSISTANCE NEEDED. BEDSIDE REPORT GIVEN TO ONCOMING NURSE.
--- NOTE | 2018-10-29 22:13 | NUR ---
190ml Gastric residual found at this time.
--- NOTE | 2018-10-29 22:14 | NUR ---
TUBE FEED HELD AT THIS TIME. GASTRIC RESIDUAL 190ML. WILL RECHECK RESIDUAL AT 0014.
[2018-10-30] VITALS (8 sets, daily range): BP systolic 95–110; BP diastolic 48–58
--- NOTE | 2018-10-30 00:08 | NUR ---
GASTRIC RESIDUAL 40ML AT THIS TIME. PINK TINGED OUTPUT COMING OUT AFTER 40ML OF YELLOW FEED WAS REMOVED.
[2018-10-30] MEDS: CEFEPIME 1GM/NS 0.9% 50 ML 50 ML IV SCH ×3 (00:57→23:56)
[2018-10-30] MEDS ORDERED: SODIUM CHLORIDE 0.9% 250ML 250 ML ONE (01:09)
[2018-10-30] MEDS: ALBUTEROL SULF 0.083% NEB SOLN 3 ML NEB NEB SCH ×6 (02:27→23:00)
--- NOTE | 2018-10-30 05:00 | NUR ---
DR. Collier at bedside. OK to resume tube feed at 30ml/hr and increase as tolerated. pt started on tube feed, tubing and feed changed at this time. gauze pad changed at PEG site. pt comfortable, resting in chair with call light in reach.
[2018-10-30] MEDS: METOCLOPRAMIDE HCL 10 MG/2ML VIAL IV SCH ×4 (06:00→23:56)
[2018-10-30 06:05] LABS: BASOPHILS % 0.5 % (0.0-1.0); EOSINOPHILS # (AUTO) 0.1 (0.0-0.4); EOSINOPHILS % 1.4 % (0.0-6.0); HEMATOCRIT 27.1 % (34.2-44.1); HEMOGLOBIN 8.7 g/dL (12.0-16.0); LYMPHOCYTES # (AUTO) 1.3 (1.0-3.2); LYMPHOCYTES % 22.4 % (18.0-39.1); MEAN CORPUSCULAR HEMOGLOBIN 31.1 pg (28-32); MEAN CORPUSCULAR HGB CONC 32.1 g/dL (31-35); MEAN CORPUSCULAR VOLUME 96.8 fL (81-99); MONOCYTES # (AUTO) 0.9 (0.2-0.8); MONOCYTES % 15.9 % (4.4-11.3); NEUTROPHILS # (AUTO) 3.2 (2.1-6.9); NEUTROPHILS % 56.1 % (38.7-80.0); PLATELET COUNT 295 x10e3/uL (140-360); RED CELL DISTRIBUTION WIDTH 15.2 % (11.7-14.4)
[2018-10-30 06:19] LABS: ALANINE AMINOTRANSFERASE 102 IU/L (0-55); ALBUMIN 1.8 g/dL (3.5-5.0); ALBUMIN/GLOBULIN RATIO 0.5 (0.8-2.0); ALKALINE PHOSPHATASE 413 IU/L (40-150); ANION GAP 10.8 mmol/L (8-16); BLOOD UREA NITROGEN < 5 mg/dL (7-26); CALCIUM 8.1 mg/dL (8.4-10.2); CARBON DIOXIDE 24 mmol/L (22-29); CHLORIDE 107 mmol/L (98-107); CREATININE, SERUM 0.66 mg/dL (0.57-1.11); EST GLOMERULAR FILTRATION RATE > 60 ML/MIN (60-); GLUCOSE 118 mg/dL (74-118); POTASSIUM 3.8 mmol/L (3.5-5.1); SODIUM 138 mmol/L (136-145)
[2018-10-30 06:20] LABS: BUN/CREATININE RATIO 8 (6-25)
[2018-10-30] MEDS: D5.45%NS/KCL 20MEQ 1,000 ML IV SCH ×2 (06:20→14:10)
[2018-10-30] MEDS: METRONIDAZOLE 500MG/NS 100ML 100 ML IV SCH ×3 (06:20→21:15)
[2018-10-30] MEDS: IPRATROPIUM BROMIDE 0.02% 2.5 ML NEB NEB SCH ×3 (07:00→19:15)
--- NOTE | 2018-10-30 07:11 | NUR ---
PATIENT IS ALERT, AWAKE, AND IN STABLE CONDITION WITH NO S/S OF RESPIRATORY DISTRESS- PATIENT IS SITTING UP IN THE RECLINER AT THIS TIME. 02 APPLIED. NO PAIN VOICED. TUBE FEEDING INFUSING AT 30CC/HR. CALL LIGHT IS WITHIN REACH, PATIENT INSTRUCTED TO CALL FOR ASSISTANCE NEEDED.
[2018-10-30] MEDS: INSULIN REGULAR, HUMAN 100 UNIT/1 ML 3ML VIAL SQ SCH ×4 (07:30→21:15)
[2018-10-30] MEDS: PANTOPRAZOLE SODIUM 40 MG SUSPDR.PKT PEG SCH ×2 (09:19→16:10)
[2018-10-30] MEDS: GUAIFENESIN/DEXTROMETHORPHAN LIQD 5 ML UDC PO PRN (09:20)
[2018-10-30] MEDS: ATORVASTATIN 20 MG TAB PO SCH (09:20)
[2018-10-30] MEDS: ASPIRIN 81 MG ENTERIC COATED PO SCH (09:20)
[2018-10-30] MEDS: FOLIC ACID 1 MG TAB PO SCH (09:20)
--- NOTE | 2018-10-30 09:41 | NUR ---
CALL PLACED OUT TO DR. ROUSE REGARDING PATIENT'S MAGNESIUM OF 1.1; DR. ROUSE ALSO INFORMED OF PATIENT'S NAUSEA AND ORDER FOR IV ZOFRAN. DR. ROUSE ALSO INFORM OF PATIENT'S RESIDUAL OF 60CC AND PATIENT REQUESTING RN TO STOP CHECKING THE RESIDUAL D/T IT HURTING HER- SMALL TINGE OF BLOOD NOTED IN [place]. RECEIVED ORDERS FROM DR. ROUSE ON 2 GRAMS MAGNESIUM SULFATE NOW AND IN FOUR HOURS AND FOR IV ZOFRAN. ORDER TO CALL AND INFORM DR. ADAMS.
[2018-10-30] MEDS ORDERED: ONDANSETRON HCL INJ 2MG/ML 2ML 2 MG/ML VIAL IV PRN (09:45)
[2018-10-30] MEDS ORDERED: MAGNESIUM SULFATE 2GM/50ML 50 ML IV ONE ×2 (10:00→14:00)
--- NOTE | 2018-10-30 10:02 | NUR ---
CALL PLACED OUT TO DR. ADAMS TO INFORM HIM OF THE PATIENT'S RESIDUAL AND CURRENT TUBE FEEDING RATE OF 30CC. AWAITING CALLBACK
--- NOTE | 2018-10-30 11:24 | NUR ---
PATIENT STATING NAUSEA FEELING- REQUESTED FROM DR. ROUSE IF IV REGLAN COULD BE CHANGED TO Q6H INSTEAD OF Q8H. ORDER RECEIVED.
[2018-10-30] MEDS ORDERED: VANCOMYCIN 1GM/NS 250 ML 250 ML IV SCH (11:30)
--- NOTE | 2018-10-30 13:15 | NUR ---
RN INFORMED DR. ROUSE AND DR. [facility] OF THE TUBE FEEDING LEAKING OUT IN MODERATE AMOUNT FROM THE PEG TUBE SITE WHEN THE RN WAS TRYING TO ASSIST THE PATIENT OUT OF BED TO THE RECLINER. THE TUBE FEEDING WAS STOPPED AND DISCONNECTED FROM THE PATIENT. PATIENT WAS CLEANED AND NEW GAUZE DRESSINGS APPLIED.
--- NOTE | 2018-10-30 13:19 | NUR ---
RECEIVED THE OKAY FROM DR. ROUSE TO SWITCH THE ABD ULTRASOUND TO STAT. ORDER TO STOP THE TUBE FEEDINGS UNTIL DR. ADAMS SEES THE PATIENT FROM DR. ROUSE.
--- NOTE | 2018-10-30 13:53 | NUR ---
SPOKE WITH ELDA AT [facility], HAVE AUTH FOR THIS PT UNTIL 2PM ON 10-31. WILL HAVE TO BEGIN AUTH AGAIN OF PT DOES NOT GO TO FACILITY. SPOKE WITH NURSE STAT US ORDERED, WILL PROCEED WHEN INSTRUCTED.
--- NOTE | 2018-10-30 15:56 | Diagnostic Imaging Report ---
Exam: Limited abdominal ultrasound of the anterior abdominal wall History: Fluctuant around the PEG site in the abdomen. Comparison: None available Findings: Scanning around the PEG site insertion anterior abdominal wall left medial abdomen shows no evidence of a an abscess or fluid collection. Impression: No abscess is identified. Signed by: Dr. Christos Salter DO on 10/30/2018 3:53 PM
[2018-10-30] MEDS: RIVAROXABAN 20 MG TABLET PO SCH (16:10)
--- NOTE | 2018-10-30 16:18 | NUR ---
PATIENT REQUESTING IV MEDICATION FOR HER "MASSIVE HEADACHE"- RECEIVED ORDER FROM DR. ROUSE FOR IV TYLENOL Q6H PRN.
--- NOTE | 2018-10-30 16:28 | NUR ---
DR. ROUSE INFORMED ON THE ABD ULTRASOUND- NO NEW ORDERS GIVEN. CALL PLACED OUT TO DR. US WHO IS COVERING FOR DR. ADAMS REGARDING ABD ULTRASOUND AND PEG TUBE STATUS- AWAITING CALLBACK.
[2018-10-30] MEDS ORDERED: ACETAMINOPHEN 1000 MG/100 ML IV PRN (16:30)
--- NOTE | 2018-10-30 16:44 | NUR ---
RECEIVED A CALL FROM DR. US- INFORMED DR. US OF TUBE FEEDING COMING OUT [facility] PEG TUBE SITE AND THE RESIDUAL DAY SHIFT NURSE COLLECTED EARLIER THIS MORNING (60CC OF RESIDUAL). INFORMED DR. HAIRSTON PATIENT IS DISCONNECTED FROM TUBE FEEDING AT THIS TIME. NEW ORDER RECEIVED FOR KUB WITH GASTRO TO CHECK FOR PEG TUBE PLACEMENT.
[2018-10-30] MEDS ORDERED: DIATRIZOATE MEGL/DIATRIZOA SOD 30 ML BTL PO ONE (17:34)
--- NOTE | 2018-10-30 18:02 | NUR ---
Nutrition Follow-up Note RD Recommendation(s) for Physician: -When PEG tube is ok to use, rec continuous TF with Vital 1.2, advance as tolerated, to goal rate of 50mL/hr (1440kcal, 72g protein, 966mL water) -Water flushes of 50mL water q 4hr; additional water per MD discretion -Check labs, GI tolerance, weight daily -Continue Reglan to promote gastric motility -Hold TF if gastric residual >250mL Plan of Care: RD following, monitoring for tolerance and adequacy, TF rec Nutrition reason for involvement: Follow up RD Assessment 10/30 Discussed case with ANDREIA Urena. Apparently, tube feeding was leaking out of PEG site today. [place] tinged output was noted when drawing gastric residual. Pt requested RN to stop checking gastric residual as it was hurting her. RD visited pt in the room. TF has been on hold. Pt reports of some nausea but no vomiting. Pt feels that she tolerates Vital AF 1.2 better. No more complains of abdominal cramping. Normal BM. Pt also shows me a report of her previous gastric emptying study in 2016, which showed MARKED PROLONGED GASTRIC EMPTYING. GI is following. No abscess identified on Abd US. KUB pending to check for PEG tube placement. Reglan has changed from q8hr to q 6hr. Will continue to monitor and follow. 10/27 - Discussed case with ANDREIA Cee.TF is currently running with Vital AF at 25ml/hr. Pt still complains of some nausea and cough. Pt reported feeling better without any abdominal cramping. Gastric residual between 50-70mL with Reglan. Communicated RD rec with RN. Will continue to monitor and follow. 10/23 Pt was discussed during AM rounds. Night nurse held TF as pt was complaining of being full and bloated. Gastric residual was between 55-70mL. Communicated with Day nurse to not hold TF unless gastric residual >250mL. Obtained order from Dr. Glaser for Reglan 10mg q 6hr. Visited pt in the room. TF was turned down to 20ml/hr. Pt aware that this is the only diabetic standard formula available in this facility; also explained the role of Reglan in promoting gastric motility. Unable to determine if pt is truly not tolerating the formula as we are not able to reach goal rate of 50mL/hr and gastric residual has been low. Communicated RD recommendation with ANDREIA Ballard. Will continue to monitor and follow. 10/20 Visited pt in the room. TF was running at 20mL/hr during my visit. Pt was complaining of abdominal pain with nausea. LBM 10/15. Pt stated my BM is irregular. Per ANDREIA Madison, pt was having 30 40mL gastric residual today. Reglan has been ordered to promote digestion. Pt also reported milk intolerance (not tested with milk allergy before). Pt stated I get stomach cramping with dairy. Explained that Glucerna is suitable for pt with lactose intolerance. RD rec to only hold TF if gastric residual >250mL. If symptoms persist, please obtain KUB. Will continue to monitor and follow. 10/18 PEG was placed. [facility] was following for NMES. Obtained telephone order from Dr. Mcfadden to start continuous TF. Notified RN of TF rec. Will continue to monitor and follow. (10/16) Pt was discussed during AM rounds. MBS on 10/15 demonstrating penetration and aspiration. Plan for PEG placement by GI. Followed by [facility] for NMES. LBM- 10/15. No GI complains reported. Will communicate TF rec with RN. Will continue to monitor and follow. (10/10) Chart reviewed. Labs and meds reviewed. 72yo F, who was admitted for fever and chills after procedure for vocal cord paralysis. Visited pt in the room. 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 No complains of nausea or vomiting. LBM 10/09. Pt complained of hunger. Currently NPO. Will continue to monitor and follow. Principal Problems/Diagnoses: Aspiration PNA, NSTEMI PMH: hypertension, diabetes, anemia, and hyperlipidemia GI: abdomen soft, non-tender, round, LBM 10/29 Skin: no pressure wound noted Labs: (10/30) reviewed (10/27) BUN 5 L, Glucose 156 H, Ca 7.9 L 10/20 Na 134 L, Glucose 132 H, Ca 8.3 L (10/18) K 3.3 L, Ca 7.9 L (10/16) K 2.4 L, BUN 33 H, Glucose 170 200 H, Mg 2.2 H Meds: reglan, folic acid, lipitor, zofran Ht: 60in Wt: 200lb; 191lb; 203lb BMI: 39.1kg/m2 IBW: 100lb Malnutrition Evaluation (10/10/2018) The patient does not meet criteria for a specified degree of malnutrition at this time. Will re-evaluate at follow-up as appropriate. Nutrition Prescription (Diet Order): Vital AF 1.2 @50mL/hr Estimated Nutritional Needs: Calories: 1150 1380kcal (25-30kcal/kg/d) Weight used: IBW Protein: 69 115g (1.5-2.5g/kg/d) Weight used: IBW Diet Adequacy: Not meeting calorie needs, Not meeting protein needs TF on hold Diet Education Needs Assessment: Diet education not indicated. 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 Goal: Patient will meet 75-100% of estimated needs by follow up Progress: Some progress Interventions: Composition, Rate, Route Monitoring/Evaluation: Total energy intake, Total protein intake, Formula/Solution, Weight change, Labs, Gastric tolerance Signed: Irene Torrez MS, RD, LD
[2018-10-30] MEDS: LINEZOLID 600 MG/D5W 300ML 300 ML IV SCH (18:19)
--- NOTE | 2018-10-30 18:49 | Diagnostic Imaging Report ---
Exam: KUB. Clinical History: Tube placement. Status post injection of 30 cc contrast material into PEG tube for placement Comparison: 10/25/2018 Findings: Frontal view of the abdomen demonstrates a nonobstructive bowel gas pattern with moderate retained stool. Radiopaque contrast material is seen filling the lumen of the stomach via a PEG tube in the left upper abdomen. No contrast extravasation or obstruction is seen. Impression: Radiopaque contrast material is seen filling the lumen of the stomach via a PEG tube in the left upper abdomen. No contrast extravasation or obstruction is seen. Signed by: Dr. Jan Aguila M.D. on 10/30/2018 6:46 PM
--- NOTE | 2018-10-30 19:17 | NUR ---
PATIENT IS RESTING IN BED- ALERT AND IN STABLE CONDITION WITH NO S/S OF RESPIRATORY DISTRESS. NO PAIN VOICED. 02 APPLIED. TUBE FEEDING IS DISCONNECTED. BED ALARM ON. CALL LIGHT IS WITHIN REACH, PATIENT INSTRUCTED TO CALL FOR ASSISTANCE NEEDED. BEDSIDE REPORT GIVEN TO ONCOMING NURSE.
--- NOTE | 2018-10-30 20:04 | NUR ---
SPOKE WITH DR. HAIRSTON REGARDING THE PATIENT'S PEG TUBE. THE ULTRASOUND AND KUB CAME BACK NORMAL, AND WAS TOLD TO HOLD THE PEG TUBE UNTIL DR. ADAMS COMES IN THE MORNING.
[2018-10-31] VITALS (7 sets, daily range): BP systolic 110–131; BP diastolic 54–77
[2018-10-31] MEDS: IPRATROPIUM BROMIDE 0.02% 2.5 ML NEB NEB SCH ×6 (01:00→23:57)
--- NOTE | 2018-10-31 01:22 | NUR ---
PATIENT RESTING IN BED BOTH EYES CLOSED, NO RESPIRATORY DISTRESS NOTED. PATIENT HAS NOT VOICED AND PAIN OR DISCOMFORT, PEG TUBE IS STILL DISCONNECTED, IV FLUID RUNNING AT ORDERED RATE, BED IN LOWEST POSITION AND LOCKED, CALL LIGHT WITHIN EASY REACH, WILL CONTINUE TO MONITOR.
[2018-10-31] MEDS: ALBUTEROL SULF 0.083% NEB SOLN 3 ML NEB NEB SCH ×6 (02:59→23:00)
[2018-10-31] MEDS: D5.45%NS/KCL 20MEQ 1,000 ML IV SCH ×2 (03:30→16:50)
[2018-10-31] MEDS: METOCLOPRAMIDE HCL 10 MG/2ML VIAL IV SCH ×4 (05:36→23:30)
[2018-10-31] MEDS: METRONIDAZOLE 500MG/NS 100ML 100 ML IV SCH ×3 (05:36→23:00)
[2018-10-31 06:15] LABS: ALANINE AMINOTRANSFERASE 115 IU/L (0-55); ALBUMIN 1.7 g/dL (3.5-5.0); ALBUMIN/GLOBULIN RATIO 0.5 (0.8-2.0); ALKALINE PHOSPHATASE 404 IU/L (40-150); ANION GAP 12.5 mmol/L (8-16); BLOOD UREA NITROGEN < 5 mg/dL (7-26); CALCIUM 7.6 mg/dL (8.4-10.2); CARBON DIOXIDE 22 mmol/L (22-29); CHLORIDE 106 mmol/L (98-107); EST GLOMERULAR FILTRATION RATE > 60 ML/MIN (60-); GLUCOSE 105 mg/dL (74-118); POTASSIUM 3.5 mmol/L (3.5-5.1); SODIUM 137 mmol/L (136-145)
[2018-10-31] MEDS: LINEZOLID 600 MG/D5W 300ML 300 ML IV SCH ×2 (06:18→17:26)
[2018-10-31 06:26] LABS: BUN/CREATININE RATIO 8 (6-25)
[2018-10-31] MEDS: INSULIN REGULAR, HUMAN 100 UNIT/1 ML 3ML VIAL SQ SCH ×4 (07:30→21:14)
--- NOTE | 2018-10-31 07:30 | NUR ---
pt up in bed ,denies ain o2 2l nc in place,
[2018-10-31] MEDS: PANTOPRAZOLE SODIUM 40 MG SUSPDR.PKT PEG SCH (08:30)
[2018-10-31] MEDS: FOLIC ACID 1 MG TAB PO SCH (09:00)
[2018-10-31] MEDS: ATORVASTATIN 20 MG TAB PO SCH (09:00)
[2018-10-31] MEDS: ASPIRIN 81 MG ENTERIC COATED PO SCH (09:00)
[2018-10-31] MEDS: BACITRACIN ZINC 15 GM OINT TOP SCH ×2 (09:00→17:00)
--- NOTE | 2018-10-31 09:47 | NUR ---
PHYSICAL THERAPY HERE ,AMBULATED PT IN PATEL TOLERATED WELL.
--- NOTE | 2018-10-31 10:35 | NUR ---
ST Note: Discussed case with ANDREIA Garrett. Pt demonstrating difficulty with PEG feeds and, per Tami, has been given the option of a GJ tube or oral intake. Per Tami, pt would prefer not the have GJ tube. Review of [facility] documentation shows pt has had 7 session of NMES and her aspiration was trace. It is possible that swallow safety has improved since MBS 10/15/18 and pt may be able to tolerate at least altered consistencies. Agreed to repeat MBS to re-assess swallow safety.
[2018-10-31] MEDS: CEFEPIME 1GM/NS 0.9% 50 ML 50 ML IV SCH (12:07)
--- NOTE | 2018-10-31 12:44 | NUR ---
Discontinuing skilled physical therapy services since patient is Mod I in functional mobility. Thank you. Addendum: 10/31/18 at 1245 by Viral goldberg PT Amended: Links added.
[2018-10-31] MEDS: RIVAROXABAN 20 MG TABLET PO SCH (17:00)
--- NOTE | 2018-10-31 17:27 | NUR ---
PT UP ONSIDE OF BED NO DISTRES SNTOED,DENIES PAIN ,TOLERATING GI SOFT WELL
[2018-11-01] VITALS (7 sets, daily range): BP systolic 120–141; BP diastolic 59–73
[2018-11-01] MEDS: CEFEPIME 1GM/NS 0.9% 50 ML 50 ML IV SCH ×3 (00:30→23:44)
[2018-11-01] MEDS: METOCLOPRAMIDE HCL 10 MG/2ML VIAL IV SCH ×4 (05:40→23:45)
[2018-11-01] MEDS: METRONIDAZOLE 500MG/NS 100ML 100 ML IV SCH ×3 (05:40→21:54)
[2018-11-01] MEDS: PANTOPRAZOLE SOD 40 MG TABEC PO SCH (05:40)
[2018-11-01] MEDS: D5.45%NS/KCL 20MEQ 1,000 ML IV SCH ×2 (06:10→23:44)
[2018-11-01] MEDS: LINEZOLID 600 MG/D5W 300ML 300 ML IV SCH ×2 (06:45→16:57)
[2018-11-01 06:50] LABS: ALANINE AMINOTRANSFERASE 84 IU/L (0-55); ALBUMIN 1.8 g/dL (3.5-5.0); ALBUMIN/GLOBULIN RATIO 0.5 (0.8-2.0); ALKALINE PHOSPHATASE 353 IU/L (40-150); ANION GAP 10.5 mmol/L (8-16); BLOOD UREA NITROGEN < 5 mg/dL (7-26); CALCIUM 7.7 mg/dL (8.4-10.2); CARBON DIOXIDE 21 mmol/L (22-29); CHLORIDE 108 mmol/L (98-107); CREATININE, SERUM 0.61 mg/dL (0.57-1.11); EST GLOMERULAR FILTRATION RATE > 60 ML/MIN (60-); GLUCOSE 112 mg/dL (74-118); POTASSIUM 3.5 mmol/L (3.5-5.1); SODIUM 136 mmol/L (136-145)
[2018-11-01] MEDS: IPRATROPIUM BROMIDE 0.02% 2.5 ML NEB NEB SCH ×2 (06:50→11:28)
[2018-11-01] MEDS: ALBUTEROL SULF 0.083% NEB SOLN 3 ML NEB NEB SCH ×5 (06:50→23:00)
[2018-11-01 06:51] LABS: BUN/CREATININE RATIO 8 (6-25)
[2018-11-01] MEDS: INSULIN REGULAR, HUMAN 100 UNIT/1 ML 3ML VIAL SQ SCH ×4 (07:30→20:17)
--- NOTE | 2018-11-01 07:30 | NUR ---
PT UP ON SIDE OF BED AAOX3,DENIES PAIN,MIDLINE TO LT UA
[2018-11-01] MEDS: ASPIRIN 81 MG ENTERIC COATED PO SCH (09:00)
[2018-11-01] MEDS: BACITRACIN ZINC 15 GM OINT TOP SCH ×2 (09:00→16:57)
[2018-11-01] MEDS: FOLIC ACID 1 MG TAB PO SCH (09:00)
[2018-11-01] MEDS: ATORVASTATIN 20 MG TAB PO SCH (09:00)
--- NOTE | 2018-11-01 09:31 | Diagnostic Imaging Report ---
Exam: Modified barium swallow performed in conjunction with Speech Pathology. History: Dysphagia and pneumonia Comparison: None available Findings: Patient was administered barium impregnated liquids and semisolid's with fluoroscopy obtained in the lateral projection. There is flash shallow penetration with thick liquids and thin liquids with only serial sips via cup and/or straw. Penetration did not occur with single sips. No aspiration was noted. Fluoroscopy time: 2.8 minutes Chemotherapy limited dose: 19.4 mGy Impression: 1. Flash penetration without evidence of aspiration. 2. Please see the full report provided by the Speech Pathologist. Signed by: Dr. Christos Salter DO on 11/01/2018 9:27 AM
[2018-11-01] MEDS ORDERED: NEOMYCIN/POLYMYX/BACITR OINT 0.9 GM PKT ONE (12:25)
--- NOTE | 2018-11-01 12:50 | NUR ---
PT TRANSPORTED TO OR FOR EGD PEG REMOVAL,STABLE CONDITION
--- NOTE | 2018-11-01 13:00 | NUR ---
RETURNED TO ROOM VIA BED AAOX3,DENIES PAIN ,DRSG TO ABD SMALL AMT SEROUS DRAINAGE,MID LINE IN PLCE INFUSING LR
[2018-11-01] MEDS ORDERED: PROPOFOL IV EMULSION 10 MG/ML 20 ML VIAL ONE (14:34)
[2018-11-01] MEDS ORDERED: LIDOCAINE HCL 2% LOCAL INJ 5 ML SDV VIAL INJ ONE (14:34)
[2018-11-01] MEDS: RIVAROXABAN 20 MG TABLET PO SCH (16:57)
--- NOTE | 2018-11-01 16:59 | NUR ---
PT UP IN BED TOLERATING DIET WELL,DENIES NAUSEA
--- NOTE | 2018-11-01 19:10 | NUR ---
Patient visited in room during nursing rounds. Patient alert and oriented x3. No distress or discomfort noted. S/P EGD and removal of PEG tube today. Dressing (gauze, abd pad) on abdomen covered with silk tape all clean, dry and intact. IVF (D5 1/2NS with 20meqKCL at 75ml/hr) infusing. Call mcgraw within reach.
[2018-11-01] MEDS: BALSAM PERU/CASTOR OIL 60 GM OINT...G. TP SCH (20:00)
[2018-11-02] VITALS: BP 132/65
[2018-11-02] MEDS: IPRATROPIUM BROMIDE 0.02% 2.5 ML NEB NEB SCH ×3 (01:00→11:13)
[2018-11-02] MEDS: ALBUTEROL SULF 0.083% NEB SOLN 3 ML NEB NEB SCH ×4 (03:00→14:51)
[2018-11-02 04:00] VITALS: BP 130/76
[2018-11-02] MEDS: METOCLOPRAMIDE HCL 10 MG/2ML VIAL IV SCH ×2 (05:43→11:04)
[2018-11-02] MEDS: METRONIDAZOLE 500MG/NS 100ML 100 ML IV SCH ×2 (05:43→13:25)
[2018-11-02] MEDS: LINEZOLID 600 MG/D5W 300ML 300 ML IV SCH (06:44)
[2018-11-02] MEDS: PANTOPRAZOLE SOD 40 MG TABEC PO SCH (06:44)
--- NOTE | 2018-11-02 07:02 | NUR ---
RECEIVED PATIENT RESTING IN BED. NO ACUTE DISTRESS NOTED. PATIENT DENIES PAIN OR DISCOMFORT AT THIS TIME. CALL LIGHT WITHIN REACH. BED IN THE LOWEST POSITION.
[2018-11-02] MEDS: INSULIN REGULAR, HUMAN 100 UNIT/1 ML 3ML VIAL SQ SCH ×2 (07:30→11:04)
[2018-11-02 07:33] VITALS: BP 120/57
[2018-11-02] MEDS: ATORVASTATIN 20 MG TAB PO SCH (08:34)
[2018-11-02] MEDS: ASPIRIN 81 MG ENTERIC COATED PO SCH (08:34)
[2018-11-02] MEDS: FOLIC ACID 1 MG TAB PO SCH (08:34)
[2018-11-02] MEDS: BALSAM PERU/CASTOR OIL 60 GM OINT...G. TP SCH (08:35)
[2018-11-02] MEDS: BACITRACIN ZINC 15 GM OINT TOP SCH (08:56)
[2018-11-02 09:44] VITALS: BP 120/57
[2018-11-02 10:50] VITALS: BP 137/61
--- NOTE | 2018-11-02 10:56 | NUR ---
RECEIVED ORDER FOR PT TO DC HOME W HH / SN FOR WOUND CARE TEACHING. MET W THE PT AT THE BEDSIDE. STATES SHE HAD HH IN MAY, BUT DOES NOT REMEMBER THE NAME. PT ATTEMPTED TO CALL HER , BUT NO ANSWER. PT STATES IF CM CANNOT FIND OUT PREVIOUS HH; USE SOMEONE IN NETWORK W HER INSURANCE. CHOICE LETTER WAS SIGNED. IMM LETTER WAS EXPLAINED. PT VERBALIZED UNDERSTANDING. IMM LETTER WAS SIGNED. COPIES TO CHART AND COPIES TO THE PT. Addendum: 11/02/18 at 1100 by Catherine Mcfarland CM CALL TO ZAINA NEVES @ [phone]. NO ANSWER. LEXIS LEFT PETER Da Silva CONTACT INFO.
[2018-11-02] MEDS: CEFEPIME 1GM/NS 0.9% 50 ML 50 ML IV SCH (11:04)
[2018-11-02] MEDS ORDERED: ONDANSETRON HCL 4 MG ORAL DISINTEGRATING TAB PO PRN (11:15)
--- NOTE | 2018-11-02 14:29 | NUR ---
CM CALLED SEVERAL HH AGENCIES TO VERIFY IF THE PT HAS BEEN ON SERVICE W THEM; [facility], [facility], [facility], [facility] [place]. NONE OF THE ABOVE WAS THE PT ON SERVICE WITH. REFERRAL WAS FAXED TO [facility] @ OFF: [phone] / FAX: [phone]. CONTACT: STEPHON RECEIVED CALL FROM THE PT STATING HER WAS BRINGING HER HH FOLDER FROM HOME. INFORMED THE PT I HAD ALREADY FAXED THE REFERRAL TO [facility]. PT STATES OK TO LEAVE W [facility], BUT IF THEY DON'T ACCEPT [facility] [facility] REPLACEMENT, WE CAN FAX TO HER PREVIOUS PROVIDER. CM AGREED.
--- NOTE | 2018-11-02 15:05 | NUR ---
HOME HEALTH DISCHARGE NOTE PATIENT ADDRESS WHERE SERVICE WILL BE RECEIVED: [place] [address] PATIENT CONTACT NUMBER: [phone] NAME OF HOME HEALTH COMPANY: [facility] TELEPHONE/FAX NUMBER OF COMPANY: OFF: [phone] / FAX: [phone] ADDRESS OF COMPANY: [facility] [address] [place] [id number] SERVICES TO RECEIVE: HALF-WAY FOR EVALUATION & WOUND CARE TEACHING ANTICIPATED DATE SERVICES WILL BEGIN: 11/03/2018 Please call the company above if you have not received a call to schedule a home visit within 24 hours of discharge.
[2018-11-02 15:07] VITALS: BP 155/76
--- NOTE | 2018-11-02 15:49 | NUR ---
RECEIVED DC ORDER FROM MD. PATIENT IS IN STABLE CONDITION. LEFT UPPER ARM MIDLINE DCD AT 1538 WITH TIP INTACT, PRESSURE APPLIED TO SITE, NO BLEEDING NOTED. DISCHARGE TEACHING PROVIDED, PATIENT VERBALIZED UNDERSTANDING. DISCHARGE FOLDER WHICH INCLUDES PRESCRIPTION AND DC PAPERWORK ON HAND. PERSONAL ITEMS ON HAND. PATIENT ACCOMPANIED TO PRIVATE AUTO VIA WHEELCHAIR BY STAFF.
--- NOTE | 2018-11-16 06:06 | Discharge Summary ---
DISCHARGE DIAGNOSES: 1. Aspiration pneumonia. 2. Gastroparesis. 3. Troponin leak. 4. Hypertension. 5. Anemia. 6. Diabetes. HISTORY OF PRESENT ILLNESS AND HOSPITAL COURSE: See hospital chart for full details. The patient is a 72-year-old lady, well known to me with history of gastroparesis, Who presented with some chest pain. She was found to have pneumonia, which was initially turned out to be aspiration pneumonia on modified barium swallow due to recent surgery of her neck with exploration of the left side. She also has some positive troponins. She was seen by Cardiology, where they did their workup. Please see the hospital chart for full details of aspiration pneumonia. They actually did a cardiac cath that showed negative for obstructive lesions. She was made n.p.o. for aspiration pneumonia, placed on IV antibiotics. She had MES stimulator placed on her neck and she had a PEG tube placed due to nutritional needs. Unfortunately, the patient was not able to tolerate the PEG tube well due to her severe gastroparesis and high residuals that we started having discussions about possible J-tube, but likely we will repeat barium swallow after her treatments showed her to have resolution of the aspiration, so she was able to have the PEG tube removed in back to having p.o. intake done. At the time of discharge, the patient was discharged home in good condition. She is to follow up with me in 1-2 weeks. Please see the hospital chart for full details. MD LORRIE Holguin/DA /[id number]
--- NOTE | 2018-12-05 19:34 | Consultation ---
DATE OF CONSULTATION: 11/15/2018 This is a 72-year-old, who presented to the hospital because of aspiration pneumonia. GI consult was obtained for PEG placement. PAST MEDICAL PROBLEM: Significant for history of hepatitis, history of diabetes. ALLERGIES: AND PENICILLIN. MEDICATIONS: Including insulin, atorvastatin, hydrochlorothiazide. SOCIAL HISTORY: No alcohol use. FAMILY HISTORY: Noncontributory. REVIEW OF SYSTEMS: Unremarkable. PHYSICAL EXAMINATION: GENERAL: Lying in bed, not in acute distress. VITAL SIGNS: Afebrile. HEAD, EYES, EARS, NOSE, AND THROAT: Normocephalic, atraumatic. HEART: Regular. LUNGS: Clear. ABDOMEN: Soft and nontender. EXTREMITIES: No cyanosis. No clubbing. IMPRESSION: 1. Oropharyngeal dysphagia. We will need to proceed with support. 2. Aspiration pneumonia. 3. Diabetes. 4. Hypertension. RECOMMENDATION: Continue current care at this point. We will proceed with EGD with PEG placement and follow clinically. Wes Samuels MD DHD/MODL /[id number] cc: Ba Collier MD
== END 2018-11-02 15:50 | disposition home health service (06) | DRG 871 ==
LOC: ER 18:55 → ERHOLD 22:46 → MED/SURG3 10-09 09:28
PROVIDERS: ADMIT Internal Medicine; ATTEND Internal Medicine
PROC: 4A023N7 Measurement of Cardiac Sampling and Pressure, Left Heart, Percutaneous Approach (ICD-10-PCS; principal; 2018-10-11)
PROC: B2111ZZ Fluoroscopy of Multiple Coronary Arteries using Low Osmolar Contrast (ICD-10-PCS; 2018-10-11)
PROC: 0DH63UZ Insertion of Feeding Device into Stomach, Percutaneous Approach (ICD-10-PCS; 2018-10-18)
PROC: 02HV33Z Insertion of Infusion Device into Superior Vena Cava, Percutaneous Approach (ICD-10-PCS; 2018-10-31)
PROC: B548ZZA Ultrasonography of Superior Vena Cava, Guidance (ICD-10-PCS; 2018-10-31)
PROC: 0DP68UZ Removal of Feeding Device from Stomach, Via Natural or Artificial Opening Endoscopic (ICD-10-PCS; 2018-11-01)
DX: A41.9 Sepsis, unspecified organism (principal); J69.0 Pneumonitis due to inhalation of food and vomit; I21.4 Non-ST elevation (NSTEMI) myocardial infarction; N39.0 Urinary tract infection, site not specified; K94.23 Gastrostomy malfunction; K94.22 Gastrostomy infection; L03.311 Cellulitis of abdominal wall; J38.02 Paralysis of vocal cords and larynx, bilateral; I10 Essential (primary) hypertension; K21.9 Gastro-esophageal reflux disease without esophagitis; E78.5 Hyperlipidemia, unspecified; M19.90 Unspecified osteoarthritis, unspecified site; E78.00 Pure hypercholesterolemia, unspecified; Z88.1 Allergy status to other antibiotic agents; Z88.0 Allergy status to penicillin; Z88.2 Allergy status to sulfonamides; Z83.3 Family history of diabetes mellitus; Z82.49 Family history of ischemic heart disease and other diseases of the circulatory system; D64.9 Anemia, unspecified; Z98.890 Other specified postprocedural states; Z79.01 Long term (current) use of anticoagulants; E66.9 Obesity, unspecified; K44.9 Diaphragmatic hernia without obstruction or gangrene; K29.70 Gastritis, unspecified, without bleeding; Z68.39 Body mass index [BMI] 39.0-39.9, adult; E11.43 Type 2 diabetes mellitus with diabetic autonomic (poly)neuropathy; E87.5 Hyperkalemia; R13.12 Dysphagia, oropharyngeal phase; Z79.82 Long term (current) use of aspirin
CPT/HCPCS: 36415; 43246; 70491; 71045; 74018; 74230; 74470; 76705; 80048; 80053; 80061; 81001; 82550; 82553; 82948; 83518; 83605; 83735; 83880; 84484; 84550; 85025; 85610; 85651; 86140; 87040; 87070; 87086; 87400; 93005; 93306; 93454; 94640; 96361; 96367; 96374; 96376; 97139; 99285; C1887; J0692; J1644; J1650; J1817; J1956; J2001; J2020; J2250; J2270; J2405; J2765; J2920; J2930; J3010; J3370; J3475; J3480; J7030; J7040; J7050; Q0162; Q9967